=== PATIENT | male | born 1940 | race Caucasian/White ===

== ENCOUNTER → 2020-10-27 05:37 | Outpatient (CLI) | payer MEDICARE, SELFPAY ==
[2020-10-27 19:34] LABS: SARS-CoV-2 RNA PCR Negative
== END ==
PROVIDERS: PCP Family Medicine; Visit Provider Internal Medicine Critical Care Medicine
DX: R68.89 Other general symptoms and signs (principal); Z20.822 Contact with and (suspected) exposure to COVID-19
CPT/HCPCS: C9803; U0003; U0005

== ENCOUNTER 2020-10-30 07:10 | Outpatient (CLI) | payer MEDICARE, SELFPAY ==
--- NOTE | 2020-11-14 10:11 | WPDSLEEPSTUD ---
Sleep Study Date of Study: 10/30/20 Ordering Provider: Ed Jaramillo MD Interpreting Physician: Caty Hess MD Sleep Study Type: Split Polysomnogram Height: 1.68 m Weight: 90.718 kg Body Mass Index: 32.3 Neck Circumference (inches): 17 [place]: 3 Reason for Sleep Study Difficulty falling asleep and staying asleep Sleep History Melo Haider is a 80 year old man who was referred by Dr. Jaramillo for difficulty getting to sleep and staying asleep. He occasionally snores but he lives alone so no but he complains about it. He occasionally awakens at night with heartburn, belching or coughing. He rarely awakens from sleep feeling short of breath. He occasionally wakes up gasping for breath at night. He occasionally has breathing problems at night observed by others. He does not sweat excessively at night or notices his heart pounding or beating irregularly night. He occasionally falls asleep during the day, occasionally involuntarily, never while driving. He does not have loss of muscle tone was strong emotion. He does not have daytime difficulties due to excessive sleepiness. He does not feel paralyzed on waking or falling asleep. He frequently has vivid dreamlike scenes upon awakening or falling asleep. He does not feel afraid to go to sleep. He does not currently have nightmares. He did have some in the past. He rarely remembers his dreams. He frequently has racing thoughts. He rarely feels sad depressed or has anxiety. He does not have muscular tension. He occasionally notices parts of his body jerking. He does not comment on whether not he kicks at night. He rarely has crawling and aching feelings in his legs. He does not have any kind of leg pain at night. He does not have morning jaw pain. He does not grind his teeth during sleep. He occasionally is bothered by pain during the day. He frequently is awakened by pain at night. He wakes up feeling tired in the morning however does not have muscle stiffness, achy limbs or neck pain. He has dizziness, fatigue, sexual problems, memory problems, headaches and depression. Normal bedtime is 10:00 p.m. taking 4 hours to fall asleep with 3 trips to the bathroom. it may taking 15 minutes to 30 minutes to return to sleep. He wakes in the morning at 7:30 a.m.. He estimates getting 4-6 hours of sleep at night. His weekend schedule is the same. He does not take naps. Habits: Never smoked tobacco. Caffeine 3 cups per day. No alcohol or recreational drugs. [facility] Past Medical History Medical History (Updated 11/14/20 @ 13:44 by Caty Hess MD) Depression Hypercholesterolemia Hypertension PAC (premature atrial contraction) Medications Medications: atorvastatin 20 mg a day cholecalciferol 25 mcg 1000 units of vitamin-D 3 daily cyanocobalamin / vitamin B12 3000 mcg daily fish oil-[place] 3-vitamin-C -vitamin E 2000/650/12 mg/ 2.5 g emulsion in packet daily hydrochlorothiazide 25 mg daily losartan 100 mg daily meclizine 25 mg t.i.d. p.r.n. dizziness metoprolol 100 mg b.i.d. multivitamin 1 daily omeprazole 20 mg daily oxybutynin XL 5 mg daily tamsulosin 0.4 mg extended-release 30 minutes after a meal Sleep Procedure This test was performed using the Sonopia multiple channel system including EOG, EEG, submental EMG, EKG, nasal and oral airflow using thermistors and nasal pressure sensors, chest and abdominal belts for body position data, and pulse oximetry. Video monitoring was also performed. The study was scored using CMS guidelines. After the baseline portion the patient met criteria for a titration with an apnea-hypopnea index of 17.7. The patient used a mask, type was not specified, and a heated humidifier with initial pressure of 5 cm gradually increased to a pressure of 13 cm. At the highest setting, 13 cm, the patient spent 25 minutes in bed, 24 minutes in REM, had 1 hypopnea and an AHI of 2.4 with a minimum sat of 91% and a sleep efficie
[2020-11-14 13:45] VITALS: BMI 32.3
== END 2020-10-30 07:11 | disposition home or self-care (01) ==
LOC: ANHCSM 07:11
PROVIDERS: PCP Family Medicine; Visit Provider Internal Medicine Cardiovascular Disease
DX: G47.33 Obstructive sleep apnea (adult) (pediatric) (principal); G25.81 Restless legs syndrome
CPT/HCPCS: 95811

== ENCOUNTER 2022-10-28 08:40 | Outpatient (CLI) | payer MEDICARE, SELFPAY ==
--- NOTE | ~2022-10-28 | CT_ITS ---
EXAMINATION: CT abdomen pelvis wo/w con DATE: 10/28/2022 09:31 INDICATION: Gross hematuria TECHNIQUE: Computed tomography (CT) of the abdomen and pelvis was performed without intravenous contr ast. CT of the abdomen and pelvis was then performed with a total of 130 mL Omnipaque 350 intravenous contrast using a double-bolus technique for simultaneous opacification of the renal parenchyma and r enal collecting system. The dose-length product (DLP) was 1440.03 mGy-cm. Automated exposure control and iterative reconstruction technique were employed. COMPARISON: 02/27/2012 FINDINGS: There are chronic subpleural reticular and groundglass opacities in the visualized lung bas es with some areas of honeycombing. There is a moderate-sized sliding hiatal hernia. The heart size i s normal. Healed left-sided rib fractures are noted. Cysts of the liver measure up to 1.5 cm. Punctat e calcifications in an otherwise normal spleen likely represent healed granulomatous disease. The chaudhary creas, gallbladder, and adrenal glands are normal. No stones are identified in the kidneys, ureters, or bladder. No hydronephrosis or hydroureter. Cysts of the kidneys measure up to 5.2 cm on the left. No suspicious renal or urothelial lesion identified. There is moderate lumbar spondylosis. No patholo gically enlarged abdominal or pelvic lymph nodes are identified. There is calcified atherosclerosis o f the aorta and many of the other arteries. No free intraperitoneal gas or evidence of bowel obstruct ion. A retroaortic left renal vein is noted. There is a moderate volume of colonic stool. IMPRESSION: 1. No CT correlate for the patient's symptoms. 2. Chronic interstitial lung disease in the visualized lung bases pattern of usual interstitial pneum onia (UIP). Reviewed, dictated and finalized at location L. IMPRESSION: 1. No CT correlate for the patient's symptoms. 2. Chronic interstitial lung disease in the visualized lung bases pattern of us ual interstitial pneumonia (UIP).
--- NOTE | ~2022-10-28 | XR_ITS ---
EXAMINATION: XR abdomen/kub 1V INDICATION: Gross hematuria TECHNIQUE: Supine views of the abdomen were obtained on 2 radiographs. COMPARISON: None FINDINGS: The bowel gas pattern is normal. No urolithiasis is identified. There are phleboliths of th e pelvis. There is moderate osteoarthritis of the hips. IMPRESSION: 1. No urolithiasis identified. Reviewed, dictated and finalized at location L.
[2022-10-28 09:15] LABS: Estimated Glomerular Filt Rate > 60
== END 2022-10-28 08:41 | disposition home or self-care (01) ==
PROVIDERS: PCP Family Medicine; Visit Provider Urology
DX: R31.0 Gross hematuria (principal); J84.9 Interstitial pulmonary disease, unspecified
CPT/HCPCS: 74018; 74178; Q9967

== ENCOUNTER 2024-01-27 15:37 | Inpatient (IN) | payer MEDICARE, SELFPAY ==
--- NOTE | ~2024-01-27 | XR_ITS ---
EXAMINATION: XR surgery orthopedic DATE: 02/01/2024 17:51 INDICATION: Left ankle fracture. TECHNIQUE: 4 intraoperative fluoroscopic views of left ankle were obtained. I was not present. Fluoro scopy exposure time was 3 minutes 42 seconds COMPARISON: Left ankle radiographs 01/26/2024 FINDINGS: There is a fracture of posterior malleolus in near-anatomic alignment with internal fixatio n with plate and screws. There is normal alignment at the ankle mortise. There is fixation of the dis astrid tibia and fibula with screw and a tension band. IMPRESSION: 1. Fracture of posterior malleolus status post open reduction internal fixation. 2. Internal fixation of the tibiofibular syndesmosis. Reviewed, dictated and finalized at location E. IMPRESSION: 1. Fracture of posterior malleolus status post open reduction internal fixation . 2. Internal fixation of the tibiofibular syndesmosis.
--- NOTE | ~2024-01-27 | XR_ITS ---
XR chest 1V portable Ordering provider: Anel Jordan MD History: 83 years Male with . syncope . Comparison: June 13, 2012 FINDINGS: MEDIASTINUM: The cardiac silhouette is slightly enlarged. Postoperative changes in the mediastinum. S lightly congested anju. LUNGS: No effusion or pneumothorax. Bilateral interstitial changes. Minimal opacification in the left and the right lung bases more on the left. OTHER: No free air under the diaphragm. Degenerative changes of the spine. IMPRESSION: Bilateral basal pneumonia more on the left side. Underlying pulmonary edema is not excluded. Reviewed, dictated and finalized at location A.
--- NOTE | ~2024-01-27 | XR_ITS ---
EXAMINATION: XR chest 2V DATE: 01/31/2024 09:41 INDICATION: Lung infiltrates. TECHNIQUE: Frontal and lateral views of the chest were obtained. COMPARISON: Chest single view 01/27/2024, CT abdomen and pelvis 10/28/2022 FINDINGS: The lung volumes are normal. There is an interstitial pattern in the lungs with a lower javi g predominance. No pleural effusion or pneumothorax. The heart size is normal. Surgical clips overlie left posterior thorax. There is a large hiatal hernia. IMPRESSION: 1. Stable chronic interstitial lung disease. 2. Large hiatal hernia. Reviewed, dictated and finalized at location E.
--- NOTE | ~2024-01-27 | CT_ITS ---
CT brain wo con Ordering provider: Anel Jordan History: 83 years Male with . fall . Comparison: None. Technique: CT of the head without contrast. Radiation reduction technique utilized. DLP is 605.33 mGy. FINDINGS: BRAIN PARENCHYMA AND CSF SPACES: Mild leukoaraiosis and diffuse cortical atrophy. Mild atheromatous d isease. Tiny bilateral lacunar infarcts in the basal ganglia. No midline shift, mass effect or hemorr navneet. The brain parenchyma and CSF spaces are otherwise normal. VISUALIZED PARANASAL SINUSES: Well aerated. MASTOIDS: Well aerated. BONES: The bones appear intact. SOFT TISSUES: Visualized nasopharynx is normal. Superficial soft tissues are normal. IMPRESSION: No acute intracranial findings. Reviewed, dictated and finalized at location A.
[2024-01-27 15:38] VITALS: BP 129/63; PULSE 76; RESP 16; TEMP 36.6; O2SAT 98
--- NOTE | 2024-01-27 16:40 | ED.GENADULT ---
HPI - General Adult General Chief complaint: Recheck/Abnormal Lab/Rx <Abigail Dunn November, INSTRUCTOR DECORATING - Last Filed: 01/27/24 19:46> Stated complaint: bola asking for admit <Abigail Dunn November, INSTRUCTOR DECORATING - Last Filed: 01/27/24 19:46> Time Seen by Provider: 01/27/24 16:40 <Abigail Dunn November, INSTRUCTOR DECORATING - Last Filed: 01/27/24 19:46> Focused HPI: Melo Haider is an 83 y/o male who presents with his son. Son states that pt had a fall yesterday and broke his left ankle and left femur he was seen at [facility] and was d/c home with splint/crutches and ortho follow up. He followed up with Orthopedic surgeon Dr. Wong here and they were told that his left ankle is very unstable and he cannot be on crutches he needs to be completely non weight bearing if he puts weight on it he will run the little ligaments he has left. Dr. Wong sen them here so he can be admitted to get rehab placement pending surgery and then after surgery go back to rehab Patient lives alone and has stairs he has to get up and down and is unable to safely mobilize with this injury. Dr. Wong does not need any more imaging he has had Xr and CT. GENERAL: Well-appearing, well-nourished, and in no acute distress. HEAD: Normocephalic, atraumatic. CHEST: Clear to auscultation. ?No respiratory distress. HEART: Regular rate and rhythm.? NEURO: ?Alert and oriented x3. Patient screened in triage and initial orders placed.? ?Additional care and disposition to be based upon?diagnostic testing and treatment. <Abigail Dunn November, INSTRUCTOR DECORATING - Last Filed: 01/27/24 19:46> Related Data Home medications: Home Medications Medication Instructions Recorded Confirmed fish mai--bzh C-vit E 2,000 g PO DAILY 10/30/22 01/27/24 mg-650 mg-12 mg/2.5 g emulsion packt coenzyme Q10 10 mg capsule (Co 10 mg PO ONCE 12/01/23 01/27/24 Q-10) multivitamin 1 tablet PO DAILY 01/27/24 01/27/24 oxybutynin chloride 10 mg 0.5 mg PO 01/27/24 tablet,extended release 24 hr tamsulosin 0.4 mg capsule 0.4 mg PO 01/27/24 tamsulosin 0.4 mg capsule 0.4 mg PO DAILY 01/27/24 01/27/24 <Abigail Dodd, INSTRUCTOR DECORATING - Last Filed: 01/27/24 19:46> Allergies/adverse reactions: Allergies Allergy/AdvReac Type Severity Reaction Status Date / Time No Known Allergies Allergy Verified 01/27/24 13:17 <Abigail Dodd, INSTRUCTOR DECORATING - Last Filed: 01/27/24 19:46> Review of Systems Review of Systems: All systems are reviewed and are negative unless stated otherwise in the HPI. <Anel Jordan MD - Last Filed: 01/27/24 18:32> PMFSH Past Medical History Medical History: Medical History Atherosclerosis of aorta Benign prostatic hyperplasia with lower urinary tract symptoms Decreased urine stream Gastro-esophageal reflux disease without esophagitis Hypercholesterolemia Hypertension Major depressive disorder, recurrent, in partial remission PAC (premature atrial contraction) Personal history of colonic polyps Personal history of malignant neoplasm of bladder <Abigail Dodd, INSTRUCTOR DECORATING - Last Filed: 01/27/24 19:46> Surgical History Surgical History: Surgical History History of back surgery History of hernia repair <Abigail Dodd, INSTRUCTOR DECORATING - Last Filed: 01/27/24 19:46> Social History Social History: Social History Smoking status: Never smoker Smokeless tobacco user: chewing tobacco Second hand tobacco smoke exposure: No Alcohol intake: former Substance use: never Substance use type: does not use Do You Feel Safe in your Home?: Yes Lack of Transportation: No Lack of Food: Never True Current Housing: I Have Housing Concerned About Future Housing: No Difficulty Paying Gas/Electric Bills: No Difficulty Paying for Meds: No Currently Unemployed: No Education: High School Diploma/GED Difficulty w/ Childcare or Fami
--- NOTE | 2024-01-27 17:42 | ECG_ITS ---
Test Date: 2024-01-27 18:27:26 Measurements Intervals [place] Rate: 65 P: 23 NE: 191 QRS: -20 QRSD: 104 T: 2 QT: 398 QTc: 415 Interpretive Statements SINUS RHYTHM VOLTAGE CRITERIA FOR LVH BORDERLINE T WAVE ABNORMALITY- INFERIOR LEADS BASELINE ARTIFACT- I, II, III, AVR, AVL, AVF, V1-V6 BORDERLINE ECG No previous ECG available for comparison Electronically Signed On 01-27-2024 20:02:27 CDT by Bob Serrato D.O.
[2024-01-27 17:54] VITALS: BP 145/69; PULSE 79; RESP 18; O2SAT 100
[2024-01-27 17:55] LABS: Basophils Absolute Auto 0.1 K/mm3 (0.0-0.1); Basophils Percent Auto 0.4 % (0.2-1.2); Eosinophils Absolute Auto 0.1 K/mm3 (0-0.3); Hematocrit 42.5 % (42.0-52.0); Hemoglobin 14.9 g/dL (14.0-18.0); Immature Granulocyte Absolute 0.06 K/mm3 (0.00-0.031); Immature Granulocyte Percent A 0.4 % (0-0.5); Lymphocytes Absolute Auto 2.05 K/mm3 (0.9-3.2); Lymphocytes Percent Auto 15.3 % (18.3-44.2); Mean Corpuscular HGB Conc 35.1 g/dl (32-36); Mean Corpuscular Hemoglobin 32.4 pg (26-34); Mean Corpuscular Volume 92.4 fl (80-100); Mean Platelet Volume 10.7 fl (7.4-10.4); Monocytes Absolute Auto 1.3 K/mm3 (0.1-0.6); Monocytes Percent Auto 9.8 % (2.6-8.5); Neutrophils Absolute Auto 9.8 K/mm3 (1.3-6.7); Neutrophils Percent Auto 73.1 % (45.5-73.1); Platelet Count Result 189 k/mm3 (150-375); Red Cell Distribution Width 13.8 % (11.5-14.5); White Blood Count 13.4 K/mm3 (4.5-10.0)
[2024-01-27 18:06] LABS: Prothrombin Time 13.8 Seconds (11.1-14.7)
[2024-01-27 18:07] LABS: Partial Thromboplastin Time 30.1 Seconds (22.3-36.8)
[2024-01-27 18:09] LABS: Alanine Aminotransferase 21 U/L (6-50); Albumin Level 4.4 g/dL (3.5-5.1); Alkaline Phosphatase 72 U/L (38-126); Anion Gap 8 mmol/L (4-12); Aspartate Amino Transferase 26 U/L (17-59); Bilirubin,Total 1.5 mg/dL (0.2-1.3); Blood Urea Nitrogen 21 mg/dL (9-20); Calcium 9.8 mg/dL (8.4-10.2); Carbon Dioxide 29 mmol/L (22-30); Chloride 103 mmol/L (98-107); Estimated CRCL calculation 65 ml/min; Estimated Glomerular Filt Rate > 60; Glucose 101 mg/dL (65-110); Potassium 3.4 mmol/L (3.4-5.0); Sodium 140 mmol/L (137-145)
--- NOTE | 2024-01-27 19:18 | PC.NURSE ---
Assumed care of pt from DIANE Grijalva at this time. Phlebotomy to come draw second set of cultures.
[2024-01-27 20:24] VITALS: BP 155/74; PULSE 79; RESP 16; O2SAT 97
--- NOTE | 2024-01-27 21:22 | ADMGEN ---
This patient, Melo Haider, was admitted to 3 [facility] Surg Room 322-02. Patient/family oriented to hospital policies and general routines including ID bracelet, bed and alarms, visiting hours, pain management, procedures, bathroom and other care routines, personal items, smoking policy, room service/diet, and visiting hours. Information on how to activate the Rapid Response Team has been discussed. Patient/Family are encouraged to report perceived risks to care and to ask questions if they do not understand what they are told or what they should do.
[2024-01-27 21:51] VITALS: BP 139/58; PULSE 84; RESP 18; TEMP 36.6; O2SAT 98; BMI 29.1
[2024-01-27] MEDS: AZITHROMYCIN 500 MG/NS 250 ML 500 MG/250 ML BAG 250 MG IVPB (21:53)
--- NOTE | 2024-01-27 23:17 | PC.NURSE ---
This RN completed the admission. Family was at bedside at admission and requested Care Coordination to call keli Lopez or Donal for placement. They would like to be called with significant updates as well.
[2024-01-28 05:59] VITALS: BP 141/63; PULSE 77; RESP 18; TEMP 36.3; O2SAT 95
[2024-01-28] MEDS: AZITHROMYCIN 250 MG TABLET PO (08:55)
--- NOTE | 2024-01-28 10:03 | PM.IMHP ---
H&P: HPI History of Present Illness Date/Time: 01/28/24 10:03 Chief Complaint: fall Narrative: 83 y.o male with PMH/o BPH,malignant neoplast of bladder, depression, HTN, HLD, gerd admitted from ED for fall yesterday and lt ankle pain/lt femur- he was seen in [place] ER and sent home with splint/crutches and ortho f/u. He was seen per DR Wong- pt ankle needed surgical repair-so he was sent to ED . xray, ekg and lab work is completed in ed. There was concern for pneumonia on imaging- so pt was started on IV Rocephin and azithromycin after blood cultures were obtained. Pt is currently NPO until we know the plan and ortho sees him. he is alert, plesant, reports pain is very tolerable. [facility] Past Medical History Medical History Atherosclerosis of aorta Benign prostatic hyperplasia with lower urinary tract symptoms Decreased urine stream Gastro-esophageal reflux disease without esophagitis Hypercholesterolemia Hypertension Major depressive disorder, recurrent, in partial remission PAC (premature atrial contraction) Personal history of colonic polyps Personal history of malignant neoplasm of bladder Surgical History Surgical History History of back surgery History of hernia repair Family History Family History Mother Colon cancer Sibling Lung cancer Social History Social History Smoking status: Never smoker Smokeless tobacco user: chewing tobacco Second hand tobacco smoke exposure: No Alcohol intake: never Substance use: never Substance use type: does not use Do You Feel Safe in your Home?: Yes Lack of Transportation: No Lack of Food: Never True Current Housing: I Have Housing Concerned About Future Housing: No Difficulty Paying Gas/Electric Bills: No Difficulty Paying for Meds: No Currently Unemployed: No Education: High School Diploma/GED Difficulty w/ Childcare or Family Care: No Living arrangements: with family Occupation/Education: retired Gender identity (if verbalized by the patient): Male Sexual Orientation (if Verbalized by the Patient): Straight or Heterosexual Spiritual care concerns: No Meds Home Medications and Allergies Home Medications Medication Instructions Recorded Confirmed Type fish gfe--cnz C-vit E 2,000 1 g PO DAILY 10/30/22 01/27/24 History mg-650 mg-12 mg/2.5 g emulsion packt losartan 100 mg tablet 100 mg PO DAILY #90 tabs 10/08/23 01/27/24 Rx omeprazole 20 mg capsule,delayed 20 mg PO DAILY #90 caps 10/08/23 01/27/24 Rx release amlodipine 5 mg tablet 5 mg PO DAILY #90 tabs 10/29/23 01/27/24 Rx coenzyme Q10 10 mg capsule (Co 100 mg PO ONCE 12/01/23 01/27/24 History Q-10) hydrochlorothiazide 25 mg tablet 25 mg PO DAILY #90 tabs 12/01/23 01/27/24 Rx triamcinolone acetonide 0.1 % 1 applic topical BID #80 grams 12/30/23 01/27/24 Rx topical cream metoprolol succinate 100 mg 100 mg PO BID #90 tabs 01/12/24 01/27/24 Rx tablet,extended release 24 hr Prilosec OTC 20 mg PO DAILY 01/27/24 01/27/24 History atorvastatin 20 mg tablet 20 mg PO DAILY 01/27/24 01/27/24 History multivitamin 1 tablet PO DAILY 01/27/24 01/27/24 History oxybutynin chloride 10 mg 0.5 mg PO DAILY 01/27/24 01/27/24 History tablet,extended release 24 hr oxybutynin chloride 5 mg 10 mg PO DAILY 01/27/24 01/27/24 History tablet,extended release 24 hr tamsulosin 0.4 mg capsule 0.4 mg PO DIRECTED 01/27/24 01/27/24 History Allergies Allergy/AdvReac Type Severity Reaction Status Date / Time aspirin AdvReac Intermediate Headache Verified 01/28/24 12:49 Vital Signs Vital Signs - 24 hr 01/27/24 15:38 01/27/24 17:54 01/27/24 20:24 Temperature 97.9 F Pulse Rate 76 79 79 Respiratory Rate 16 18 16 Blood Pressure 129
[2024-01-28] MEDS: SODIUM CHLORIDE 0.9% IV 1,000 ML 150 ML IV CONT (11:17)
[2024-01-28 11:18] VITALS: PULSE 84
[2024-01-28] MEDS: LOSARTAN POTASSIUM 100 MG TABLET PO (11:18)
[2024-01-28] MEDS: MULTIVITAMINS THERAPEUTIC TAB (*BKC) 1 TABLET PO (11:18)
[2024-01-28] MEDS: METOPROLOL SUCCINATE EXT REL 100 MG TABCR PO ×2 (11:18→20:29)
[2024-01-28] MEDS: amLODIPine BESYLATE 5 MG TABLET PO (11:19)
[2024-01-28] MEDS: PANTOPRAZOLE 40 MG TABLET PO (11:19)
[2024-01-28] MEDS: TAMSULOSIN HCL 0.4 MG CAPSULE PO (11:19)
[2024-01-28] MEDS: ATORVASTATIN 20 MG TABLET PO (11:19)
[2024-01-28] MEDS: hydroCHLOROthiazide 25 MG TABLET PO (11:19)
[2024-01-28] MEDS: oxyBUTYnin CHLORIDE XL 5 MG TAB.ER.24 10 MG PO (11:19)
--- NOTE | 2024-01-28 13:11 | PM.PNORT ---
Progress Note: A&P Assessment and Plan (1) Fracture of posterior malleolus of left tibia: Qualifiers: Encounter type: subsequent encounter Fracture type: closed Fracture healing: with routine healing Qualified Code(s): S82.392D - Other fracture of lower end of left tibia, subsequent encounter for closed fracture with routine healing Code(s): S82.392A - Other fracture of lower end of left tibia, initial encounter for closed fracture Status: Acute Assessment and Plan: Patient is a 83-year-old gentleman is a patient of Dr. Mendez who I saw in the office yesterday. The day before the fell sustaining a severely displaced diastasis of the left ankle syndesmosis, [place] pattern. There is a displaced long oblique proximal fibular shaft fracture. Posterior malleolus fracture with some intercalary comminution surface of the posterior aspect of the tibial plafond adjacent to the fracture site. There is an avulsion fracture off Chaput's tubercle and several flake avulsion fractures off the medial malleolus.. He was in [place] and simply got out of his car locked approximately 10 steps and suddenly found himself on the ground left leg and foot underneath him. He feels that is right leg slipped or gave way. He did not know exactly why he fell. He was discharged from the [place] ER to home where he was unable to maintain nonweightbearing on the splinted left foot and ankle. Sense is unclear whether or not he had a syncopal episode, I referred him directly to the emergency room yesterday and he underwent evaluation which bibasilar infiltrates consistent with pneumonia and he has been started on broad-spectrum IV antibiotics. On exam today he has intact sensation in the left foot. He has a long-leg splint in place to control rotation and he is comfortable in the splint. He is alert and oriented. Yesterday in the office he had moderate swelling in the lower calf and ankle on the left. I am going to try to schedule surgical repair which will include open reduction station of the posterior malleolus possibly the Chaputs tubercle if it is not too comminuted and fixation of the syndesmosis with 4.5 mm screw which will have to be removed after healing of small fibular shaft as well as a syndesmotic tight rope she in place for syndesmotic ligament reinforcement. I have explained the risks of surgery to him. In detail. We are going to tentatively try to schedule the surgery for to February 01. In the meantime, since he is going to be fairly in mobile, I am going to place him on Lovenox 40 mg daily for DVT axis. Prophylaxis.. He also related to me a history of adverse reaction to aspirin which includes baby aspirin which has caused him severe headaches last therefore we will not use aspirin for DVT prophylaxis in this gentleman. While he is here we will ask physical therapy to work with him and practice transfers bed to chair nonweightbearing left leg and possibly he will be come strong enough to hop a few steps with a walker nonweightbearing on the left leg. I will ask that we limit his time in the chair to 30 minutes at a time to minimize swelling in the left ankle. (2) Acute disruption of syndesmosis of ankle joint: Code(s): S93.439A - Sprain of tibiofibular ligament of unspecified ankle, initial encounter Status: Acute Subjective Subjective Date/Time Seen: 01/28/24 13:11 Objective Data Vital Signs Vital Signs: Vital Signs - 24 hr 01/27/24 15:38 01/27/24 17:54 01/27/24 20:24 Temperature 36.6 C Pulse Rate 76 79 79 Respiratory Rate 16 18 16 Blood Pressure 129/63 145/69 H 155/74 H Pulse Oximetry 98 100 97 Oxygen Delivery 01/27/24 21:51 01/27/24 22:33 01/28/24 05:59 Temperature 36.6 C 36.3 C L Pulse Rate 84 77 Respiratory Rate 18 18 Blood Pressure 139/58 L 141/63 H Pulse Oximetry 98 95 Oxygen Delivery Room Air 01/28/24 11:18 Temperature Pulse Rate 84 Respiratory Rate Blood
[2024-01-28 13:56] VITALS: O2SAT 94
[2024-01-28 14:00] VITALS: BP 141/66; PULSE 72; RESP 18; TEMP 36.8; O2SAT 94
[2024-01-28] MEDS: ENOXAPARIN 40 MG/0.4 ML SYRINGE SUB-Q (17:39)
[2024-01-28 20:29] VITALS: PULSE 75
[2024-01-28 22:00] VITALS: BP 130/60; PULSE 73; RESP 20; TEMP 37.1; O2SAT 96
[2024-01-29 06:00] VITALS: BP 114/59; PULSE 72; RESP 18; TEMP 37; O2SAT 91
[2024-01-29 06:36] LABS: Basophils Absolute Auto 0.1 K/mm3 (0.0-0.1); Basophils Percent Auto 0.7 % (0.2-1.2); Eosinophils Absolute Auto 0.3 K/mm3 (0-0.3); Eosinophils Percent Auto 2.5 % (0-4.4); Hematocrit 41.6 % (42.0-52.0); Hemoglobin 13.8 g/dL (14.0-18.0); Immature Granulocyte Absolute 0.05 K/mm3 (0.00-0.031); Immature Granulocyte Percent A 0.5 % (0-0.5); Lymphocytes Percent Auto 21.5 % (18.3-44.2); Mean Corpuscular HGB Conc 33.2 g/dl (32-36); Mean Corpuscular Hemoglobin 31.2 pg (26-34); Mean Corpuscular Volume 93.9 fl (80-100); Mean Platelet Volume 11.1 fl (7.4-10.4); Monocytes Percent Auto 10.2 % (2.6-8.5); Neutrophils Absolute Auto 6.6 K/mm3 (1.3-6.7); Neutrophils Percent Auto 64.6 % (45.5-73.1); Platelet Count Result 177 k/mm3 (150-375); Red Blood Count 4.43 M/mm3 (4.6-6.20); Red Cell Distribution Width 13.2 % (11.5-14.5); White Blood Count 10.2 K/mm3 (4.5-10.0)
[2024-01-29 06:49] LABS: Anion Gap 6 mmol/L (4-12); Blood Urea Nitrogen 19 mg/dL (9-20); Calcium 9.3 mg/dL (8.4-10.2); Carbon Dioxide 27 mmol/L (22-30); Chloride 108 mmol/L (98-107); Estimated CRCL calculation 58 ml/min; Estimated Glomerular Filt Rate > 60; Glucose 102 mg/dL (65-110); Magnesium 2.1 mg/dL (1.6-2.3); Potassium 3.2 mmol/L (3.4-5.0); Sodium 141 mmol/L (137-145)
[2024-01-29 07:07] LABS: Procalcitonin 0.1 ng/mL
--- NOTE | 2024-01-29 07:38 | PM.PNORT ---
Progress Note: A&P Assessment and Plan (1) Fracture of shaft of left fibula: Qualifiers: Encounter type: subsequent encounter Fracture type: closed Fracture morphology: comminuted Fracture alignment: displaced Fracture healing: with routine healing Qualified Code(s): S82.452D - Displaced comminuted fracture of shaft of left fibula, subsequent encounter for closed fracture with routine healing Code(s): S82.402A - Unspecified fracture of shaft of left fibula, initial encounter for closed fracture Status: Acute Assessment and Plan: After discussion with the operating room, they have a time available for Thursday and we will plan on surgery to repair the fractures and syndesmosis left ankle at that time if he is medically stable and optimized and if the swelling is reduced. I would like to have Cardiology see him for evaluation for cardiac risk assessment in this 83-year-old gentleman who has had significant reduction in his physical capacity over the last couple of years as the stress of anesthesia superimposed on his body fighting pneumonia will be significant. Also if it is felt that delay of surgery for several more days would be beneficial to reduce his medical risk associated with surgery, we can modify our plan for scheduling the surgery accordingly. (2) Acute disruption of syndesmosis of ankle joint: Code(s): S93.439A - Sprain of tibiofibular ligament of unspecified ankle, initial encounter Status: Acute (3) Fracture of posterior malleolus of left tibia: Qualifiers: Encounter type: subsequent encounter Fracture type: closed Fracture healing: with routine healing Qualified Code(s): S82.392D - Other fracture of lower end of left tibia, subsequent encounter for closed fracture with routine healing Code(s): S82.392A - Other fracture of lower end of left tibia, initial encounter for closed fracture Status: Acute Subjective Subjective Date/Time Seen: 01/29/24 07:38 Objective Data Vital Signs Vital Signs: Vital Signs - 24 hr 01/28/24 11:18 01/28/24 08:00 01/28/24 13:56 Temperature Pulse Rate 84 Respiratory Rate Blood Pressure Pulse Oximetry 94 Oxygen Delivery Room Air Room Air 01/28/24 14:00 01/28/24 20:29 01/28/24 20:00 Temperature 36.8 C Pulse Rate 72 75 Respiratory Rate 18 Blood Pressure 141/66 H Pulse Oximetry 94 Oxygen Delivery Room Air 01/28/24 22:00 01/29/24 06:00 Temperature 37.1 C 37.0 C Pulse Rate 73 72 Respiratory Rate 20 18 Blood Pressure 130/60 114/59 L Pulse Oximetry 96 91 Oxygen Delivery Intake/Output Intake/Output: Intake & Output 01/26/24 01/27/24 01/28/24 01/29/24 23:59 23:59 23:59 23:59 Intake Total 300 770 500 Output Total 350 850 650 Balance -50 -80 -150 Meds/Results Medications: Active Medications Generic Name Dose Route Start Last Admin Trade Name Amanda PRN Reason Stop Dose Admin Amlodipine Besylate 5 mg 01/28/24 09:00 01/28/24 11:19 Amlodipine Besylate 5 Mg Tablet PO 5 mg DAILY YOBANY Administration Atorvastatin Calcium 20 mg 01/28/24 09:00 01/28/24 11:19 Atorvastatin 20 Mg Tablet PO 20 mg DAILY YOBANY Administration Azithromycin 250 mg 01/28/24 09:00 01/28/24 08:55 Azithromycin 250 Mg Tablet PO 01/31/24 09:01 250 mg DAILY YOBANY Administration Enoxaparin Sodium 40 mg 01/28/24 13:00 01/28/24 17:39 Enoxaparin 40 Mg/0.4 Ml Syringe SUB-Q 40 mg DAILY YOBANY Administration Hydrochlorothiazide 25 mg 01/28/24 09:00 01/28/24 11:19 Hydrochlorothiazide 25 Mg Tablet PO 25 mg DAILY YOBANY Administration Ceftriaxone Sodium 1 gm in 50 mls @ 100 mls/hr 01/28/24 21:00 01/28/24 20:55 Rocephin 1 Gm/Ns 50 Ml IVPB Infused Q24H YOBANY Infusion Losartan Potassium 100 mg 01/28/24 09:00 01/28/24 11:18 Losartan Potassium 100 Mg Tablet PO 100 mg DAILY YOBANY Administration Metoprolol Succinate 100 mg 01/28/24
[2024-01-29] MEDS: METOPROLOL SUCCINATE EXT REL 100 MG TABCR PO (07:48)
[2024-01-29] MEDS: ENOXAPARIN 40 MG/0.4 ML SYRINGE SUB-Q (07:48)
[2024-01-29] MEDS: hydroCHLOROthiazide 25 MG TABLET PO (07:48)
[2024-01-29] MEDS: LOSARTAN POTASSIUM 100 MG TABLET PO (07:48)
[2024-01-29] MEDS: ATORVASTATIN 20 MG TABLET PO (07:48)
[2024-01-29] MEDS: amLODIPine BESYLATE 5 MG TABLET PO (07:48)
[2024-01-29] MEDS: AZITHROMYCIN 250 MG TABLET PO (07:48)
[2024-01-29] MEDS: PANTOPRAZOLE 40 MG TABLET PO (07:48)
[2024-01-29] MEDS: MULTIVITAMINS THERAPEUTIC TAB (*BKC) 1 TABLET PO (07:49)
[2024-01-29] MEDS: oxyBUTYnin CHLORIDE XL 5 MG TAB.ER.24 10 MG PO (07:49)
--- NOTE | 2024-01-29 08:41 | PM.IMPN ---
Progress Note: A&P Assessment and Plan (1) Ankle fracture, left: Code(s): S82.892A - Other fracture of left lower leg, initial encounter for closed fracture Status: Acute Assessment and Plan: - ortho consult - pain control prn- non weight bearing - surgery on thursday- was seen per cardiology and no interventions are needed from cardiology standpoint - lovenox for DVT prophylaxis - work with PT/OT (2) Bilateral pneumonia: Code(s): J18.9 - Pneumonia, unspecified organism Status: Acute Assessment and Plan: - iv rocephin/zithromax - IS -monitor (3) Gastro-esophageal reflux disease without esophagitis: Code(s): K21.9 - Gastro-esophageal reflux disease without esophagitis Status: Acute Assessment and Plan: -will continue home med (4) Hypercholesterolemia: Code(s): E78.00 - Pure hypercholesterolemia, unspecified Status: Acute Assessment and Plan: continue home med (5) Hypertension: Qualifiers: Hypertension type: primary hypertension Qualified Code(s): I10 - Essential (primary) hypertension Code(s): I10 - Essential (primary) hypertension Status: Acute Assessment and Plan: will continue home meds and monitor bp - will decrease metoprol)no h/o RI, CHF, afib, palpitation) and hctz and monitor (6) Obstructive sleep apnea: Code(s): G47.33 - Obstructive sleep apnea (adult) (pediatric) Status: Acute Assessment and Plan: continue cpap (7) Hypokalemia: Code(s): E87.6 - Hypokalemia Status: Acute Assessment and Plan: - will decrease hctz and add k supplements - monitor Plan lovenox per ortho Time Spent With Patient Time with patient: 25 - 35 minutes Subjective Date/time seen: 01/29/24 08:41 Interval history: Narrative: 83 y.o male with PMH/o BPH,malignant neoplast of bladder, depression, HTN, HLD, gerd admitted from ED for fall yesterday and lt ankle pain/lt femur- he was seen in [place] ER and sent home with splint/crutches and ortho f/u. He was seen per DR Wong- pt ankle needed surgical repair-so he was sent to ED . xray, ekg and lab work is completed in ed. There was concern for pneumonia on imaging- so pt was started on IV Rocephin and azithromycin after blood cultures were obtained. Pt is currently NPO until we know the plan and ortho sees him. he is alert, pleasant, reports pain is very tolerable. 01/28- noted that pt is on 4 agents for bp- amlodipine, metoprolol, losartan and hctz. will decrease doses for hctz and Metoprol. may need to de escalate some meds as bp is well controlled. He reports no known cardiac events- no MIs, no CHF. ortho saw him and plan for possible surgery on thursday- will need cardiac consult for cardiac risk assessment -consult was placed per DR Subramanian. Review of Systems Constitutional: Constitutional: Denies chills Eyes: Eyes: Denies photophobia Cardiovascular: Cardiovascular: Denies chest pain Respiratory: Respiratory: Denies chest congestion and Denies cough Gastrointestinal: Gastrointestinal: Denies abdominal pain and Denies melena Genitourinary: Genitourinary: Denies hematuria and Denies dysuria Musculoskeletal: Comments: left leg pain- controlled Exam Const: General: comfortable Resp: Effort & Inspection: normal respiratory effort Cardio: Rate: regular rate Rhythm: regular rhythm Skin: General skin exam: normal color Other: skin is warm to lle Neuro: Other: sensation intact to lle Psych: Affect: normal affect Objective Data Vital Signs Vital Signs: Vital Signs - 24 hr 01/28/24 11:18 01/28/24 13:56 01/28/24 14:00 Temperature 98.2 F Pulse Rate 84 72 Respiratory Rate 18 Blood Pressure 141/66 H Pulse Oximetry 94 94 Oxygen Delivery Room Air 01/28/24 20:29 01/28/24 20:00 01/28/24 22:00 Temperature 98.7 F Pulse Rate 75 73 Respiratory Rate 20 Blood Pressure 130/60 Pu
--- NOTE | 2024-01-29 10:22 | PM.CNCAR ---
Assessment and Plan Assessment and plan (1) Fracture of shaft of left fibula: Qualifiers: Encounter type: subsequent encounter Fracture type: closed Fracture morphology: comminuted Fracture alignment: displaced Fracture healing: with routine healing Qualified Code(s): S82.452D - Displaced comminuted fracture of shaft of left fibula, subsequent encounter for closed fracture with routine healing Code(s): S82.402A - Unspecified fracture of shaft of left fibula, initial encounter for closed fracture Status: Acute Plan This is an 83-year-old man who reports a history of a brief hospitalization for treatment of an arrhythmia approximately 20 years ago but no significant cardiovascular history since then. He enters the hospital after sustaining a complicated fracture of the left ankle following a mechanical fall at home. The avascular risk for surgical treatment of this is low and he does not require any additional or preoperative cardiac evaluation in my opinion. His cardiac history is significant for a tachyarrhythmia that was treated couple of decades ago but he has not had any clinically significant cardiac events in a long time. Will follow him with you during this hospitalization but at this point he should be considered cleared/stable for this operation Smooth Dykes MD [facility] History of Present Illness History of Present Illness Consult date/time: 01/29/24 10:22 Reason For Visit: Ankle Fracture Narrative: This is an 83-year-old man seen request of the hospitalists/orthopedic surgeon to assess cardiac risk prior to noncardiac surgery. This is a nice man who had a fall couple of days ago it he had a mechanical fall he did not have a syncopal event. The NC room elsewhere and chest x-ray demonstrated fracture of the tibial talar articulation in his left foot and he was seen by Orthopedic surgery and admitted because she going to be necessary. From what I see in the chart surgery is scheduled to happen on Thursday02/01/2024. He is at bedrest with the for the elevated on a pillow he does not have any cardiovascular complaints. He reports that he has a history of some sort of cardiac arrhythmia for which he underwent treatment in the emergency room and in the hospital approximately 20 years ago. I do not have records of that it sounds like he he either had supraventricular tachycardia or an episode of AFib by his description but once again we do not have any specific records of that. He does follow-up with my partner, Dr. Jaramillo in the office for complaints he/observation of extrasystoles/palpitations. His says not demonstrated any significant arrhythmias. He does not have any history of coronary or felt sees. He has never been hospitalized with congestive heart failure or any other problem since would of her arrhythmia the history to couple of decades ago. His 12 lead electrocardiogram shows sinus rhythm and is essentially a normal tracing. In this setting I am seeing him in consultation. He lives at home alone he is retired for many years and is normal activities of daily living without any exertion. He does not exercise in any structured fashion. Review of Systems Constitutional: Constitutional: Reports no additional constitutional complaints Eyes: Eyes: Reports no additional eye complaints ENT: Reports system reviewed and no additional complaints, except as documented Cardiovascular: Cardiovascular: Reports no additional cardiovascular complaints Respiratory: Respiratory: Reports no additional respiratory complaints Gastrointestinal: Gastrointestinal: Reports no additional gastrointestinal complaints Musculoskeletal: Musculoskeletal: Reports as per HPI Integumentary/Breasts: Skin/Breast: Reports system reviewed and no additional complaints, except as docu Neurologic: Reports system reviewed and no additional complaints, except as documented Endocrine: Endocrine: Reports no additional endocrine
[2024-01-29] MEDS: POTASSIUM CHLORIDE 20 MEQ PACKET (FOR LIQUID) PO (10:41)
--- NOTE | 2024-01-29 13:36 | PM.PNORT ---
Progress Note: A&P Assessment and Plan (1) Fracture of shaft of left fibula: Qualifiers: Encounter type: subsequent encounter Fracture type: closed Fracture morphology: comminuted Fracture alignment: displaced Fracture healing: with routine healing Qualified Code(s): S82.452D - Displaced comminuted fracture of shaft of left fibula, subsequent encounter for closed fracture with routine healing Code(s): S82.402A - Unspecified fracture of shaft of left fibula, initial encounter for closed fracture Status: Acute Assessment and Plan: Plan is to proceed with open reduction internal fixation posterior malleolus left ankle and syndesmosis repair Thursday on January 31 as long as he is medically respect to his pneumonia and as long as the swelling a little bit better. Dr. Ortiz the motorized squad commanding officer saw him this morning and felt that no further cardiac evaluation was necessary and that he should a cardiac standpoint with ankle surgery. Patient comfortable today. He has been sitting in the chair. He has been able to transfer bed to chair maintaining nonweightbearing status according to the therapist who I spoke to today. I reiterated to him that he must avoid sitting at in the chair within 30 minutes at a time and has been up for much longer than. (2) Acute disruption of syndesmosis of ankle joint: Code(s): S93.439A - Sprain of tibiofibular ligament of unspecified ankle, initial encounter Status: Acute (3) Fracture of posterior malleolus of left tibia: Qualifiers: Encounter type: subsequent encounter Fracture type: closed Fracture healing: with routine healing Qualified Code(s): S82.392D - Other fracture of lower end of left tibia, subsequent encounter for closed fracture with routine healing Code(s): S82.392A - Other fracture of lower end of left tibia, initial encounter for closed fracture Status: Acute Subjective Subjective Date/Time Seen: 01/29/24 13:36 Objective Data Vital Signs Vital Signs: Vital Signs - 24 hr 01/28/24 13:56 01/28/24 14:00 01/28/24 20:29 Temperature 36.8 C Pulse Rate 72 75 Respiratory Rate 18 Blood Pressure 141/66 H Pulse Oximetry 94 94 Oxygen Delivery Room Air 01/28/24 20:00 01/28/24 22:00 01/29/24 06:00 Temperature 37.1 C 37.0 C Pulse Rate 73 72 Respiratory Rate 20 18 Blood Pressure 130/60 114/59 L Pulse Oximetry 96 91 Oxygen Delivery Room Air 01/29/24 08:00 01/29/24 11:22 Temperature Pulse Rate Respiratory Rate Blood Pressure Pulse Oximetry Oxygen Delivery Room Air Room Air Intake/Output Intake/Output: Intake & Output 01/26/24 01/27/24 01/28/24 01/29/24 23:59 23:59 23:59 23:59 Intake Total 356 361 9746 Output Total 336 909 4596 Balance -50 -80 280 Meds/Results Medications: Active Medications Generic Name Dose Route Start Last Admin Trade Name Freq PRN Reason Stop Dose Admin Amlodipine Besylate 5 mg 01/28/24 09:00 01/29/24 07:48 Amlodipine Besylate 5 Mg Tablet PO 5 mg DAILY YOBANY Administration Atorvastatin Calcium 20 mg 01/28/24 09:00 01/29/24 07:48 Atorvastatin 20 Mg Tablet PO 20 mg DAILY YOBANY Administration Azithromycin 250 mg 01/28/24 09:00 01/29/24 07:48 Azithromycin 250 Mg Tablet PO 01/31/24 09:01 250 mg DAILY YOBANY Administration Enoxaparin Sodium 40 mg 01/28/24 13:00 01/29/24 07:48 Enoxaparin 40 Mg/0.4 Ml Syringe SUB-Q 40 mg DAILY YOBANY Administration Hydrochlorothiazide 12.5 mg 01/29/24 09:00 01/29/24 09:04 Hydrochlorothiazide 6.25 Mg Tablet PO Not Given DAILY YOBANY Ceftriaxone Sodium 1 gm in 50 mls @ 100 mls/hr 01/28/24 21:00 01/28/24 20:55 Rocephin 1 Gm/Ns 50 Ml IVPB Infused Q24H YOBANY Infusion Losartan Potassium 100 mg 01/28/24 09:00 01/29/24 07:48 Losartan Potassium 100 Mg Tablet PO 100 mg DAILY YOBANY Administration Metoprolol Succinate 50 mg 01/29/24 09:00 01/29/24 09:04
[2024-01-29 14:00] VITALS: BP 111/80; PULSE 61; RESP 17; TEMP 36.2; O2SAT 97
[2024-01-29 20:00] VITALS: BP 110/71; PULSE 70; RESP 16; TEMP 36.6; O2SAT 96
[2024-01-29 20:52] VITALS: PULSE 72
[2024-01-29] MEDS: METOPROLOL SUCCINATE EXT REL 50 MG TABCR PO (20:52)
[2024-01-30 06:00] VITALS: BP 143/60; PULSE 72; RESP 16; TEMP 36.1; O2SAT 96
--- NOTE | 2024-01-30 06:36 | PC.NURSE ---
On 01/30/24, the SLAB STRIPPER, [Barb ], provided care and completed [facility] documentation on this patient. I have reviewed the SLAB STRIPPER's documentation and agree with the findings.
--- NOTE | 2024-01-30 06:40 | PC.NURSE ---
On 01/30/24, the HEMATOLOGY SPECIALIST, [ Barb], provided care and completed [facility] on this patient. I have reviewed the HEMATOLOGY SPECIALIST's documentation and agree with the findings.
[2024-01-30] MEDS: METOPROLOL SUCCINATE EXT REL 50 MG TABCR PO ×2 (08:28→20:43)
[2024-01-30] MEDS: ENOXAPARIN 40 MG/0.4 ML SYRINGE SUB-Q (08:28)
[2024-01-30] MEDS: hydroCHLOROthiazide 6.25 MG TABLET 12.5 MG PO (08:28)
[2024-01-30] MEDS: LOSARTAN POTASSIUM 100 MG TABLET PO (08:28)
[2024-01-30] MEDS: oxyBUTYnin CHLORIDE XL 5 MG TAB.ER.24 10 MG PO (08:28)
[2024-01-30] MEDS: polyethylene glycoL 3350 17 GM POWD.PACK PO (08:28)
[2024-01-30] MEDS: POTASSIUM CHLORIDE 20 MEQ PACKET (FOR LIQUID) PO (08:29)
[2024-01-30] MEDS: amLODIPine BESYLATE 5 MG TABLET PO (08:29)
[2024-01-30] MEDS: ATORVASTATIN 20 MG TABLET PO (08:29)
[2024-01-30] MEDS: AZITHROMYCIN 250 MG TABLET PO (08:29)
[2024-01-30] MEDS: MULTIVITAMINS THERAPEUTIC TAB (*BKC) 1 TABLET PO (08:29)
[2024-01-30] MEDS: PANTOPRAZOLE 40 MG TABLET PO (08:29)
--- NOTE | 2024-01-30 08:58 | PM.IMPN ---
Progress Note: A&P Assessment and Plan (1) Ankle fracture, left: Code(s): S82.892A - Other fracture of left lower leg, initial encounter for closed fracture Status: Acute Assessment and Plan: - ortho consult - pain control prn- non weight bearing - surgery on thursday- was seen per cardiology and no interventions are needed from cardiology standpoint - lovenox for DVT prophylaxis - work with PT/OT -NPO thursday at midnight and surgery on wednesday 01/31 (2) Bilateral pneumonia: Code(s): J18.9 - Pneumonia, unspecified organism Status: Acute Assessment and Plan: - iv rocephin/zithromax - IS -monitor (3) Gastro-esophageal reflux disease without esophagitis: Code(s): K21.9 - Gastro-esophageal reflux disease without esophagitis Status: Acute Assessment and Plan: -will continue home med (4) Hypercholesterolemia: Code(s): E78.00 - Pure hypercholesterolemia, unspecified Status: Acute Assessment and Plan: continue home med (5) Hypertension: Qualifiers: Hypertension type: primary hypertension Qualified Code(s): I10 - Essential (primary) hypertension Code(s): I10 - Essential (primary) hypertension Status: Acute Assessment and Plan: will continue home meds and monitor bp - on metoprolol for h/o arrhythmia about 20 years ago - metoprolol dose slightly decreased as well as HCTZ- will monitor for now - he is following with cardiology outpt (6) Obstructive sleep apnea: Code(s): G47.33 - Obstructive sleep apnea (adult) (pediatric) Status: Acute Assessment and Plan: home cpap (7) Hypokalemia: Code(s): E87.6 - Hypokalemia Status: Acute Assessment and Plan: - will decrease hctz and add k supplements - monitor Plan lovenox per ortho Time Spent With Patient Time with patient: 25 - 35 minutes Subjective Date/time seen: 01/30/24 08:58 Interval history: Narrative: 83 y.o male with PMH/o BPH,malignant neoplast of bladder, depression, HTN, HLD, gerd admitted from ED for fall yesterday and lt ankle pain/lt femur- he was seen in [place] ER and sent home with splint/crutches and ortho f/u. He was seen per DR Marvin- pt ankle needed surgical repair-so he was sent to ED . xray, ekg and lab work is completed in ed. There was concern for pneumonia on imaging- so pt was started on IV Rocephin and azithromycin after blood cultures were obtained. Pt is currently NPO until we know the plan and ortho sees him. he is alert, pleasant, reports pain is very tolerable. 01/28- noted that pt is on 4 agents for bp- amlodipine, metoprolol, losartan and hctz. will decrease doses for hctz and Metoprol. may need to de escalate some meds as bp is well controlled. He reports no known cardiac events- no MIs, no CHF. ortho saw him and plan for possible surgery on thursday- will need cardiac consult for cardiac risk assessment -consult was placed per DR Subramanian. 01/29- pt is seen and examined. Was seen per cardiology yesterday- apparently he did have some arrhythmia about 20 yeras ago but no cardiovascular history since. NO new interventions were recommended per cards. We will leave metoprolol alone then and monitor BP. if needed will stop amlodipine tehn or titrate others down. Plan NPO thursday at midnight and surgery on thursday. Review of Systems Constitutional: Constitutional: Denies chills Eyes: Eyes: Denies photophobia Cardiovascular: Cardiovascular: Denies chest pain Respiratory: Respiratory: Denies chest congestion and Denies cough Gastrointestinal: Gastrointestinal: Denies abdominal pain and Denies melena Genitourinary: Genitourinary: Denies hematuria and Denies dysuria Exam Const: General: comfortable Eyes: Direct Ophthalmoscopy: No photophobia Resp: Effort & Inspection: normal respiratory effort Cardio: Rate: regular rate Rhythm: regular rhythm Skin: General skin exam: normal color Other: skin i
--- NOTE | 2024-01-30 11:11 | PM.PNORT ---
Progress Note: A&P Assessment and Plan (1) Fracture of shaft of left fibula: Qualifiers: Encounter type: subsequent encounter Fracture type: closed Fracture morphology: comminuted Fracture alignment: displaced Fracture healing: with routine healing Qualified Code(s): S82.452D - Displaced comminuted fracture of shaft of left fibula, subsequent encounter for closed fracture with routine healing Code(s): S82.402A - Unspecified fracture of shaft of left fibula, initial encounter for closed fracture Status: Acute Assessment and Plan: Patient is supine left leg elevated on 2 pillows. He is comfortable in the splint. Will order BMP to check his potassium level tomorrow yesterday was 3.2 and oral potassium supplementation has been initiated. Will check a chest x-ray tomorrow to make sure he does not have more severe radiographic pulmonary consolidation. He remains on ceftriaxone for by lobar infiltrates. I have not seen him cough and he has not had shortness of breath. And this morning is pulse ox reading is 96% on. We will ask pharmacy to discontinue Lovenox after tomorrow morning's dose. Plan is Surgical repair of his left ankle injury on a afternoon. (2) Acute disruption of syndesmosis of ankle joint: Code(s): S93.439A - Sprain of tibiofibular ligament of unspecified ankle, initial encounter Status: Acute (3) Fracture of posterior malleolus of left tibia: Qualifiers: Encounter type: subsequent encounter Fracture type: closed Fracture healing: with routine healing Qualified Code(s): S82.392D - Other fracture of lower end of left tibia, subsequent encounter for closed fracture with routine healing Code(s): S82.392A - Other fracture of lower end of left tibia, initial encounter for closed fracture Status: Acute Subjective Subjective Date/Time Seen: 01/30/24 11:11 Objective Data Vital Signs Vital Signs: Vital Signs - 24 hr 01/29/24 11:22 01/29/24 14:00 01/29/24 20:52 Temperature 36.2 C L Pulse Rate 61 72 Respiratory Rate 17 Blood Pressure 111/80 Pulse Oximetry 97 Oxygen Delivery Room Air 01/29/24 20:00 01/29/24 20:00 01/30/24 06:00 Temperature 36.6 C 36.1 C L Pulse Rate 70 72 Respiratory Rate 16 16 Blood Pressure 110/71 143/60 H Pulse Oximetry 96 96 Oxygen Delivery Room Air 01/30/24 08:00 Temperature Pulse Rate Respiratory Rate Blood Pressure Pulse Oximetry Oxygen Delivery Room Air Intake/Output Intake/Output: Intake & Output 01/27/24 01/28/24 01/29/24 01/30/24 23:59 23:59 23:59 23:59 Intake Total 676 600 8652 490 Output Total 868 080 7092 500 Balance -50 -80 810 -10 Meds/Results Medications: Active Medications Generic Name Dose Route Start Last Admin Trade Name Amanda PRN Reason Stop Dose Admin Amlodipine Besylate 5 mg 01/28/24 09:00 01/30/24 08:29 Amlodipine Besylate 5 Mg Tablet PO 5 mg DAILY YOBANY Administration Atorvastatin Calcium 20 mg 01/28/24 09:00 01/30/24 08:29 Atorvastatin 20 Mg Tablet PO 20 mg DAILY YOBANY Administration Azithromycin 250 mg 01/28/24 09:00 01/30/24 08:29 Azithromycin 250 Mg Tablet PO 01/31/24 09:01 250 mg DAILY YOBANY Administration Enoxaparin Sodium 40 mg 01/28/24 13:00 01/30/24 08:28 Enoxaparin 40 Mg/0.4 Ml Syringe SUB-Q 40 mg DAILY YOBANY Administration Hydrochlorothiazide 12.5 mg 01/29/24 09:00 01/30/24 08:28 Hydrochlorothiazide 6.25 Mg Tablet PO 12.5 mg DAILY YOBANY Administration Ceftriaxone Sodium 1 gm in 50 mls @ 100 mls/hr 01/28/24 21:00 01/29/24 21:22 Rocephin 1 Gm/Ns 50 Ml IVPB Infused Q24H YOBANY Infusion Losartan Potassium 100 mg 01/28/24 09:00 01/30/24 08:28 Losartan Potassium 100 Mg Tablet PO 100 mg DAILY YOBANY Administration Metoprolol Succinate 50 mg 01/29/24 09:00 01/30/24 08:28 Metoprolol Succinate Ext Rel 50 Mg Tabcr PO 50 mg Q12HR YOBANY Administration Multivitamins
[2024-01-30 14:00] VITALS: BP 139/64; PULSE 71; RESP 18; TEMP 36.2; O2SAT 99
[2024-01-30 20:43] VITALS: PULSE 71
[2024-01-30 22:00] VITALS: BP 129/71; PULSE 69; RESP 20; TEMP 36.6; O2SAT 95
[2024-01-31 06:00] VITALS: BP 147/72; PULSE 80; RESP 20; TEMP 36.9; O2SAT 92
[2024-01-31 06:38] LABS: Anion Gap 9 mmol/L (4-12); Blood Urea Nitrogen 16 mg/dL (9-20); Calcium 9.2 mg/dL (8.4-10.2); Carbon Dioxide 25 mmol/L (22-30); Chloride 107 mmol/L (98-107); Estimated CRCL calculation 58 ml/min; Estimated Glomerular Filt Rate > 60; Glucose 105 mg/dL (65-110); Potassium 3.8 mmol/L (3.4-5.0); Sodium 141 mmol/L (137-145)
[2024-01-31] MEDS: MULTIVITAMINS THERAPEUTIC TAB (*BKC) 1 TABLET PO (08:34)
[2024-01-31] MEDS: ATORVASTATIN 20 MG TABLET PO (08:34)
[2024-01-31] MEDS: amLODIPine BESYLATE 5 MG TABLET PO (08:34)
[2024-01-31] MEDS: POTASSIUM CHLORIDE 20 MEQ PACKET (FOR LIQUID) PO (08:34)
[2024-01-31] MEDS: hydroCHLOROthiazide 6.25 MG TABLET 12.5 MG PO (08:34)
[2024-01-31] MEDS: PANTOPRAZOLE 40 MG TABLET PO (08:34)
[2024-01-31] MEDS: AZITHROMYCIN 250 MG TABLET PO (08:34)
[2024-01-31] MEDS: oxyBUTYnin CHLORIDE XL 5 MG TAB.ER.24 10 MG PO (08:34)
[2024-01-31] MEDS: LOSARTAN POTASSIUM 100 MG TABLET PO (08:35)
[2024-01-31] MEDS: METOPROLOL SUCCINATE EXT REL 50 MG TABCR PO ×2 (08:35→20:05)
[2024-01-31] MEDS: polyethylene glycoL 3350 17 GM POWD.PACK PO (08:35)
--- NOTE | 2024-01-31 09:47 | PM.IMPN ---
Progress Note: A&P Assessment and Plan (1) Ankle fracture, left: Code(s): S82.892A - Other fracture of left lower leg, initial encounter for closed fracture Status: Acute Assessment and Plan: - ortho consult - pain control prn- non weight bearing - surgery on thursday- was seen per cardiology and no interventions are needed from cardiology standpoint - lovenox for DVT prophylaxis - work with PT/OT -NPO thursday at midnight and surgery on wednesday 01/31 (2) Bilateral pneumonia: Code(s): J18.9 - Pneumonia, unspecified organism Status: Acute Assessment and Plan: - iv rocephin/zithromax - IS -monitor today is last dose for both- will finfish the course chest xray is repeated- IMPRESSION: 1. Stable chronic interstitial lung disease. 2. Large hiatal hernia. (3) Gastro-esophageal reflux disease without esophagitis: Code(s): K21.9 - Gastro-esophageal reflux disease without esophagitis Status: Acute Assessment and Plan: -will continue home med (4) Hypercholesterolemia: Code(s): E78.00 - Pure hypercholesterolemia, unspecified Status: Acute Assessment and Plan: continue home med (5) Hypertension: Qualifiers: Hypertension type: primary hypertension Qualified Code(s): I10 - Essential (primary) hypertension Code(s): I10 - Essential (primary) hypertension Status: Acute Assessment and Plan: will continue home meds and monitor bp - on metoprolol for h/o arrhythmia about 20 years ago - metoprolol dose slightly decreased as well as HCTZ- will monitor for now - he is following with cardiology outpt (6) Obstructive sleep apnea: Code(s): G47.33 - Obstructive sleep apnea (adult) (pediatric) Status: Acute Assessment and Plan: home cpap (7) Hypokalemia: Code(s): E87.6 - Hypokalemia Status: Acute Assessment and Plan: - will decrease hctz and add k supplements - monitor Plan lovenox per ortho- hold prior to procedure Time Spent With Patient Time with patient: 25 - 35 minutes Subjective Date/time seen: 01/31/24 09:47 Interval history: Narrative: 83 y.o male with PMH/o BPH,malignant neoplast of bladder, depression, HTN, HLD, gerd admitted from ED for fall yesterday and lt ankle pain/lt femur- he was seen in [place] ER and sent home with splint/crutches and ortho f/u. He was seen per DR Wong- pt ankle needed surgical repair-so he was sent to ED . xray, ekg and lab work is completed in ed. There was concern for pneumonia on imaging- so pt was started on IV Rocephin and azithromycin after blood cultures were obtained. Pt is currently NPO until we know the plan and ortho sees him. he is alert, pleasant, reports pain is very tolerable. 01/28- noted that pt is on 4 agents for bp- amlodipine, metoprolol, losartan and hctz. will decrease doses for hctz and Metoprol. may need to de escalate some meds as bp is well controlled. He reports no known cardiac events- no MIs, no CHF. ortho saw him and plan for possible surgery on thursday- will need cardiac consult for cardiac risk assessment -consult was placed per DR Subramanian. 01/29- pt is seen and examined. Was seen per cardiology yesterday- apparently he did have some arrhythmia about 20 yeras ago but no cardiovascular history since. NO new interventions were recommended per cards. We will leave metoprolol alone then and monitor BP. if needed will stop amlodipine tehn or titrate others down. Plan NPO thursday at midnight and surgery on thursday. 01/30- no acute events overnight. Give lovenox this am and hold tomorrow am dose. surgery 7/8 am. BP reviewed and stable. K- 3.8 this am, BUN/Cr wnl, wbc downtrending. Today is last dose for his antibiotics-will complete the course- chest xray is repeated per ortho. surgery is set for tomorrow, 01/31- 2 pm Review of Systems Constitutional: Constitutional: Denies chills Eyes: Eyes: Denies photophobia Cardiovascular: Car
--- NOTE | 2024-01-31 11:57 | PM.PNORT ---
Progress Note: A&P Assessment and Plan (1) Fracture of shaft of left fibula: Qualifiers: Encounter type: subsequent encounter Fracture type: closed Fracture morphology: comminuted Fracture alignment: displaced Fracture healing: with routine healing Qualified Code(s): S82.452D - Displaced comminuted fracture of shaft of left fibula, subsequent encounter for closed fracture with routine healing Code(s): S82.402A - Unspecified fracture of shaft of left fibula, initial encounter for closed fracture Status: Acute Assessment and Plan: Patient is scheduled for surgical repair of left ankle tomorrow at 2:00 p.m.. His Lovenox is now on hold. He will be NPO after midnight. Vanco and Ancef her ordered for immediately before surgery. His chest x-ray showed chronic interstitial disease no obvious infiltrates. His potassium is up to 3.8 with the oral supplementation. He had no additional questions today. Continue with elevation his toes and forefoot shows no significant swelling today. (2) Acute disruption of syndesmosis of ankle joint: Code(s): S93.439A - Sprain of tibiofibular ligament of unspecified ankle, initial encounter Status: Acute (3) Fracture of posterior malleolus of left tibia: Qualifiers: Encounter type: subsequent encounter Fracture type: closed Fracture healing: with routine healing Qualified Code(s): S82.392D - Other fracture of lower end of left tibia, subsequent encounter for closed fracture with routine healing Code(s): S82.392A - Other fracture of lower end of left tibia, initial encounter for closed fracture Status: Acute Subjective Subjective Date/Time Seen: 01/31/24 11:57 Objective Data Vital Signs Vital Signs: Vital Signs - 24 hr 01/30/24 14:00 01/30/24 20:43 01/30/24 20:00 Temperature 36.2 C L Pulse Rate 71 71 Respiratory Rate 18 Blood Pressure 139/64 Pulse Oximetry 99 Oxygen Delivery Room Air 01/30/24 22:00 01/31/24 06:00 01/31/24 08:00 Temperature 36.6 C 36.9 C Pulse Rate 69 80 Respiratory Rate 20 20 Blood Pressure 129/71 147/72 H Pulse Oximetry 95 92 Oxygen Delivery Room Air Intake/Output Intake/Output: Intake & Output 01/28/24 01/29/24 01/30/2424 23:59 23:59 23:59 23:59 Intake Total 770 2060 1690 790 Output Total 850 1250 1600 1050 Balance -80 810 90 -260 Meds/Results Medications: Active Medications Generic Name Dose Route Start Last Admin Trade Name Amanda PRN Reason Stop Dose Admin Amlodipine Besylate 5 mg 01/28/24 09:00 01/31/24 08:34 Amlodipine Besylate 5 Mg Tablet PO 5 mg DAILY YOBANY Administration Atorvastatin Calcium 20 mg 01/28/24 09:00 01/31/24 08:34 Atorvastatin 20 Mg Tablet PO 20 mg DAILY YOBANY Administration Enoxaparin Sodium 40 mg 01/28/24 13:00 01/30/24 08:28 Enoxaparin 40 Mg/0.4 Ml Syringe SUB-Q 40 mg DAILY YOBANY Administration Hydrochlorothiazide 12.5 mg 01/29/24 09:00 01/31/24 08:34 Hydrochlorothiazide 6.25 Mg Tablet PO 12.5 mg DAILY YOBANY Administration Ceftriaxone Sodium 1 gm in 50 mls @ 100 mls/hr 01/28/24 21:00 01/30/24 20:41 Rocephin 1 Gm/Ns 50 Ml IVPB 100 mls/hr Q24H YOBANY Administration Cefazolin Sodium 2 gm in 50 mls @ 100 mls/hr 02/01/24 12:00 Ancef 2 Gm/D5w 50 Ml IVPB 02/01/24 12:29 ONCE ONE Vancomycin HCl 1,250 mg in 250 mls @ 166.667 mls/hr 02/01/24 12:00 Vancomycin 1,250 Mg/Ns 250 Ml IVPB 02/01/24 13:29 ONCE ONE Losartan Potassium 100 mg 01/28/24 09:00 01/31/24 08:35 Losartan Potassium 100 Mg Tablet PO 100 mg DAILY YOBANY Administration Metoprolol Succinate 50 mg 01/29/24 09:00 01/31/24 08:35 Metoprolol Succinate Ext Rel 50 Mg Tabcr PO 50 mg Q12HR YOBANY Administration Multivitamins Therapeutic 1 tablet 01/28/24 09:00 01/31/24 08:34 Multivitamins Therapeutic Tab (*Bkc) PO 1 tablet DAILY YOBANY Administration Oxybutynin Chloride 10 mg
[2024-01-31] MEDS: TRIAMCINOLONE ACET 0.1% CREAM 80 GM TUBE 1 APPLIC TOPICAL (11:58)
[2024-01-31 14:00] VITALS: BP 130/68; PULSE 84; RESP 19; TEMP 36.3; O2SAT 95
[2024-01-31 20:05] VITALS: PULSE 72
[2024-01-31 21:45] VITALS: BP 127/51; PULSE 72; RESP 18; TEMP 36.5; O2SAT 97
[2024-02-01] VITALS (12 sets, daily range): BP systolic 137–159; BP diastolic 60–79; PULSE 56–88; RESP 16–24; TEMP 35.9–36.7; O2SAT 95–100
[2024-02-01] MEDS: amLODIPine BESYLATE 5 MG TABLET PO (09:03)
[2024-02-01] MEDS: METOPROLOL SUCCINATE EXT REL 50 MG TABCR PO ×2 (09:03→20:24)
--- NOTE | 2024-02-01 09:15 | PM.IMPN ---
Progress Note: A&P Assessment and Plan (1) Ankle fracture, left: Code(s): S82.892A - Other fracture of left lower leg, initial encounter for closed fracture Status: Acute Assessment and Plan: - ortho consult - pain control prn- non weight bearing - surgery on thursday- was seen per cardiology and no interventions are needed from cardiology standpoint - lovenox for DVT prophylaxis - work with PT/OT -NPO thursday at midnight and surgery on wednesday 01/31 (2) Bilateral pneumonia: Code(s): J18.9 - Pneumonia, unspecified organism Status: Acute Assessment and Plan: - iv rocephin/zithromax - IS -monitor today is last dose for both- will finfish the course chest xray is repeated- IMPRESSION: 1. Stable chronic interstitial lung disease. 2. Large hiatal hernia. 01/31- off antibiotics now- will continue IS (3) Gastro-esophageal reflux disease without esophagitis: Code(s): K21.9 - Gastro-esophageal reflux disease without esophagitis Status: Acute Assessment and Plan: -will continue home med (4) Hypercholesterolemia: Code(s): E78.00 - Pure hypercholesterolemia, unspecified Status: Acute Assessment and Plan: continue home med (5) Hypertension: Qualifiers: Hypertension type: primary hypertension Qualified Code(s): I10 - Essential (primary) hypertension Code(s): I10 - Essential (primary) hypertension Status: Acute Assessment and Plan: will continue home meds and monitor bp - on metoprolol for h/o arrhythmia about 20 years ago - metoprolol dose slightly decreased as well as HCTZ- will monitor for now - he is following with cardiology outpt (6) Obstructive sleep apnea: Code(s): G47.33 - Obstructive sleep apnea (adult) (pediatric) Status: Acute Assessment and Plan: home cpap (7) Hypokalemia: Code(s): E87.6 - Hypokalemia Status: Acute Assessment and Plan: - will decrease hctz and add k supplements - monitor - reviewed and stable Plan lovenox per ortho- hold prior to procedure Time Spent With Patient Time with patient: 25 - 35 minutes Subjective Date/time seen: 02/01/24 09:15 Interval history: Narrative: 83 y.o male with PMH/o BPH,malignant neoplast of bladder, depression, HTN, HLD, gerd admitted from ED for fall yesterday and lt ankle pain/lt femur- he was seen in [place] ER and sent home with splint/crutches and ortho f/u. He was seen per DR Wong- pt ankle needed surgical repair-so he was sent to ED . xray, ekg and lab work is completed in ed. There was concern for pneumonia on imaging- so pt was started on IV Rocephin and azithromycin after blood cultures were obtained. Pt is currently NPO until we know the plan and ortho sees him. he is alert, pleasant, reports pain is very tolerable. 01/28- noted that pt is on 4 agents for bp- amlodipine, metoprolol, losartan and hctz. will decrease doses for hctz and Metoprol. may need to de escalate some meds as bp is well controlled. He reports no known cardiac events- no MIs, no CHF. ortho saw him and plan for possible surgery on thursday- will need cardiac consult for cardiac risk assessment -consult was placed per DR Subramanian. 01/29- pt is seen and examined. Was seen per cardiology yesterday- apparently he did have some arrhythmia about 20 yeras ago but no cardiovascular history since. NO new interventions were recommended per cards. We will leave metoprolol alone then and monitor BP. if needed will stop amlodipine tehn or titrate others down. Plan NPO thursday at midnight and surgery on thursday. 01/30- no acute events overnight. Give lovenox this am and hold tomorrow am dose. surgery 7 am. BP reviewed and stable. K- 3.8 this am, BUN/Cr wnl, wbc downtrending. Today is last dose for his antibiotics-will complete the course- chest xray is repeated per ortho. surgery is set for tomorrow, 01/31- 2 pm 01/31- seen and examined. It seems his BP is slightly el
--- NOTE | 2024-02-01 09:56 | PM.PNCARD ---
Progress Note: A&P Assessment and Plan (1) Fracture of shaft of left fibula: Qualifiers: Encounter type: subsequent encounter Fracture type: closed Fracture morphology: comminuted Fracture alignment: displaced Fracture healing: with routine healing Qualified Code(s): S82.452D - Displaced comminuted fracture of shaft of left fibula, subsequent encounter for closed fracture with routine healing Code(s): S82.402A - Unspecified fracture of shaft of left fibula, initial encounter for closed fracture Status: Acute Assessment and Plan: Waiting operating room today. Low risk for surgery (2) Hypertension: Qualifiers: Hypertension type: primary hypertension Qualified Code(s): I10 - Essential (primary) hypertension Code(s): I10 - Essential (primary) hypertension Status: Acute Assessment and Plan: Continue losartan, metoprolol and hydrochlorothiazide (3) Hypercholesterolemia: Code(s): E78.00 - Pure hypercholesterolemia, unspecified Status: Acute Assessment and Plan: Continue atorvastatin Subjective Date/time seen: 02/01/24 09:56 Interval history: Narrative: This is an 83-year-old man who reports a history of a brief hospitalization for treatment of an arrhythmia approximately 20 years ago but no significant cardiovascular history since then. He enters the hospital after sustaining a complicated fracture of the left ankle following a mechanical fall at home. The avascular risk for surgical treatment of this is low and he does not require any additional or preoperative cardiac evaluation in my opinion. His cardiac history is significant for a tachyarrhythmia that was treated couple of decades ago but he has not had any clinically significant cardiac events in a long time. Date of service 02/01/2024: Awaiting surgery today. No chest pain, shortness of breath. Review of Systems Constitutional: Constitutional: Reports no additional constitutional complaints Eyes: Eyes: Reports no additional eye complaints ENT: Reports system reviewed and no additional complaints, except as documented Cardiovascular: Cardiovascular: Reports no additional cardiovascular complaints Respiratory: Respiratory: Reports no additional respiratory complaints Gastrointestinal: Gastrointestinal: Reports no additional gastrointestinal complaints Musculoskeletal: Musculoskeletal: Reports as per HPI Integumentary/Breasts: Skin/Breast: Reports system reviewed and no additional complaints, except as docu Neurologic: Reports system reviewed and no additional complaints, except as documented Endocrine: Endocrine: Reports no additional endocrine complaints Hematologic/Lymphatic: Hematologic/Lymphatic: Reports no additional hematologic/lymphatic complaints Allergic/Immunologic: Allergic/Immunologic: Reports no additional allergic/immunologic complaints Exam Const: General: comfortable and no acute distress Other: Pleasant white male appearing his stated age no distress HENMT: Mouth: Yes moist mucous membranes Eyes: Sclera: sclerae normal Neck: Neck: supple and no JVD Resp: Effort & Inspection: normal respiratory effort Auscultation: clear to auscultation bilaterally Cardio: Rate: regular rate Rhythm: regular rhythm Other: No murmur no gallop GI: Auscultation: normal bowel sounds Skin: General skin exam: normal color Neuro: Other: Alert and oriented x3 Extrem: Other: Left ankle is immobilized and elevated. No edema on the right, normal perfusion Objective Data Vital Signs Vital Signs: Vital Signs - 24 hr 01/31/24 14:00 01/31/24 20:05 01/31/24 21:45 Temperature 36.3 C L 36.5 C Pulse Rate 84 72 72 Respiratory Rate 19 18 Blood Pressure 130/68 127/51 L Pulse Oximetry 95 97 02/01/24 05:38 Temperature 36.6 C Pulse Rate 76 Respiratory Rate 18 Blood Pressure 148/69 H Pulse Oximetry 98 Intake/Output Intake
[2024-02-01] MEDS: LACTATED RINGERS 1,000 ML 30 ML IV CONT ×2 (12:45→18:04)
--- NOTE | 2024-02-01 12:56 | WPDANESEPPF ---
Anes - Initial Pre Proc Eval Procedure: Operation Date: 02/01/24 14:00 Proposed Procedures p Open Reduction Internal Fixation of Left Posterior Malleolus, Syndesmotic Repair - Justin Wong MD Date/Time: 02/01/24 12:56 Surgeon: Kerrie Hamilton MD Pre Op Diagnosis: Ankle Fracture Patient Data Age: 83 Gender: M Height: 1.7 m Weight: 84.5 kg Last Vital Signs Temp 36.7 C 02/01/24 12:50 Pulse 56 L 02/01/24 12:50 Resp 18 02/01/24 12:50 BP 137/60 02/01/24 12:50 Pulse Ox 96 02/01/24 12:50 O2 Del Method Room Air 02/01/24 12:50 Allergies Allergy/AdvReac Type Severity Reaction Status Date / Time aspirin AdvReac Intermediate Headache Verified 01/28/24 12:49 Home Medications Medication Instructions Recorded Confirmed Type fish hdh--ank C-vit E 2,000 1 g PO DAILY 10/30/22 01/27/24 History mg-650 mg-12 mg/2.5 g emulsion packt losartan 100 mg tablet 100 mg PO DAILY #90 tabs 10/08/23 01/27/24 Rx omeprazole 20 mg capsule,delayed 20 mg PO DAILY #90 caps 10/08/23 01/27/24 Rx release amlodipine 5 mg tablet 5 mg PO DAILY #90 tabs 10/29/23 01/27/24 Rx coenzyme Q10 10 mg capsule (Co 100 mg PO ONCE 12/01/23 01/27/24 History Q-10) hydrochlorothiazide 25 mg tablet 25 mg PO DAILY #90 tabs 12/01/23 01/27/24 Rx triamcinolone acetonide 0.1 % 1 applic topical BID #80 grams 12/30/23 01/27/24 Rx topical cream metoprolol succinate 100 mg 100 mg PO BID #90 tabs 01/12/24 01/27/24 Rx tablet,extended release 24 hr Prilosec OTC 20 mg PO DAILY 01/27/24 01/27/24 History atorvastatin 20 mg tablet 20 mg PO DAILY 01/27/24 01/27/24 History multivitamin 1 tablet PO DAILY 01/27/24 01/27/24 History oxybutynin chloride 10 mg 0.5 mg PO DAILY 01/27/24 01/27/24 History tablet,extended release 24 hr oxybutynin chloride 5 mg 10 mg PO DAILY 01/27/24 01/27/24 History tablet,extended release 24 hr tamsulosin 0.4 mg capsule 0.4 mg PO DIRECTED 01/27/24 01/27/24 History Patient hx anesthesia problems: none Family hx anesthesia problems: none Results Review: All pre-operative results and documents have been reviewed as part of the pre-operative evaluation. [facility] Past Medical History Medical History Atherosclerosis of aorta Benign prostatic hyperplasia with lower urinary tract symptoms Decreased urine stream Gastro-esophageal reflux disease without esophagitis Hypercholesterolemia Hypertension Major depressive disorder, recurrent, in partial remission PAC (premature atrial contraction) Personal history of colonic polyps Personal history of malignant neoplasm of bladder Surgical History Surgical History History of back surgery History of hernia repair Family History Family History Mother Colon cancer Sibling Lung cancer Social History Social History Smoking status: Never smoker Smokeless tobacco user: chewing tobacco Second hand tobacco smoke exposure: No Alcohol intake: never Substance use: never Substance use type: does not use Do You Feel Safe in your Home?: Yes Lack of Transportation: No Lack of Food: Never True Current Housing: I Have Housing Concerned About Future Housing: No Difficulty Paying Gas/Electric Bills: No Difficulty Paying for Meds: No Currently Unemployed: No Education: High School Diploma/GED Difficulty w/ Childcare or Family Care: No Living arrangements: with family Occupation/Education: retired Gender identity (if verbalized by the patient): Male Sexual Orientation (if Verbalized by the Patient): Straight or Heterosexual Spiritual care concerns: No Anes - Eval Final PreProcedure Day of Procedure 02/01/24 12:56 Patient weight: overweight Heart: regular rate and rhythm Lungs: clear to auscultat
--- NOTE | 2024-02-01 13:03 | PC.NURSE ---
To OR per bed, IV saline locked. Family at bedside. Report given to DIANE Malone.
--- NOTE | 2024-02-01 13:14 | WPDHPUPDATE1 ---
History and Physical Update Update Date/Time: 02/01/24 13:14 History and Physical has been reviewed, including an updated exam of the patient. There are NO changes in the patient's condition. Except swelling is much better. Minimal at this time. Risks, benefits, and alternatives have been discussed and questions answered. Patient agrees to proceed with procedure.
[2024-02-01] MEDS: ceFAZolin 2 GM/D5W 50 ML 2 GM/50 ML BAG IVPB (13:26)
--- NOTE | 2024-02-01 13:39 | PCPTNOTE ---
The patient treatment was not able to be completed on 02/01/2024 due to patient out of the room for procedure. Will plan to continue treatment per plan of care.
[2024-02-01] MEDS: ceFAZolin SODIUM 1 GM VIAL (13:54)
[2024-02-01] MEDS: ceFAZolin SODIUM 1 GM VIAL 2 GM IV PUSH (16:33)
[2024-02-01] MEDS: ceFAZolin SODIUM 1 GM VIAL IRRIGATION (17:22)
--- NOTE | 2024-02-01 18:10 | W.PM.PROC2 ---
Procedure Note - Detailed Date of Procedure 02/01/24 Pre-op Diagnosis Maisonneuve fracture left proximal fibular shaft with severe syndesmotic diastasis posterior malleolus fracture and avulsion fracture of Chaputs tubercle. Post-op Diagnosis Same Procedure Performed Open reduction internal fixation posterior malleolus fracture and syndesmotic stabilization. Surgeon Justin Wong MD [employer] [facility] Anesthesia General Description of Procedure Patient was brought to the operating room general anesthesia was administered received 2 g of Ancef weight based vancomycin preoperatively. He was positioned in the lateral decubitus position with looseness in the hip breasts so that he could be rolled more prone and rolled more supine. The left leg was scrubbed with chlorhexidine cloth prior to position. After positioning the left leg was prepped and draped usual fashion all the skin covered with Ioban. Tourniquet was elevated to 275 mmHg initially and then after about 15 minutes to 300 mmHg which gave better hemostasis. A 4 in longitudinal incision was made midway between the Achilles tendon and the peroneal tendons and dissection was carried down and the sural nerve was immediately identified the subcutaneous tissues and this was protected. We incised the crural fascia and then the fascia over the flexor hallucis longus muscle and the flexor hallucis longus was elevated off the periosteum and periosteum was peeled off the proximal edge of the triangular posterior malleolus fragment. This was a type 2 a posterior malleolus fracture. It was 1 wide fragment. However there was comminution of the articular surface with small pieces seen on CT scan. We mobilized the proximal edge of the posterior malleolus fragment with a [place] elevator allowing us to extract it to comminution pieces of osteochondral bone.. Fragment was then held in reduced position with a dental pick and a single guidewire placed. We saw that this did maintain anatomic reduction of posterior malleolus on the lateral x-ray view with fluoro with exception of the small articular subchondral bone defect left from displacement the comminuted pieces. We chose a 4 hole mini fragment plate from the [employer] set which accommodates 2.7 mm screws. The plate was carefully contoured to act as a buttress plate and we slid this over the initially placed K-wire in the distal hole and then placed a screw in the 2nd from proximal hole which was just proximal to the fracture which obtained excellent purchase and compressed the plate and the fragment in position. There was no comminution of the posterior surface of this fragment so we could see anatomic reduction. 2 2.7 mm screws were placed in the distal 2 holes through the fragment. We then placed a guidewire and over this placed a 4.0 cannulated screw with washer just lateral to the plate for additional compression and fixation. The hip rest was relaxed posteriorly so that he can go into a semi supine position so we could approach the anterolateral corner of the distal tibia. We did not visualize the superficial branch of peroneal nerve but this was carefully looked for. We retracted the extensor digitorum longus muscle belly medially and we could see the widely displaced collection of fragments from the Chaputs tubercle. There was no piece large enough to accept even and mini frag screw. The collection of fragments were still attached to the insertion of the anterior distal tibial fibular ligament. A 3 eights inch incision was made anteromedially over the anteromedial tibial metaphysis dissection carried down to the bone and a ball-tipped reduction clamp applied from this point to the lateral malleolus for compression and we applied traction to the fibula and inserted a guide pin from the 4.5 cannulated screw set. We assessed the reduction under fluoro and I thought we had perfect reduction and we placed a tight rope and a 4.5 cannulated screw. My intent was to then
--- NOTE | 2024-02-01 18:14 | PM.OP ---
Procedure Note - Brief Procedure Note - Brief Date of procedure: 02/01/24 Ankle Fracture Procedure performed: ORIF of posterior malleolus and syndesmotic fixation the left ankle. Surgeon: CIELO Cleveland Description of procedure: 83-year-old male who underwent ORIF of his left ankle fracture. I was involved in the procedure including positioning patient on the OR table and first assisting through the time of surgery, including wound closure. I assisted getting patient to recovery. total time spent was 4 hours Urine output (mL): 600
[2024-02-01] MEDS: fentaNYL CITRATE INJ (*CRX) 100 MCG/2 ML VIAL 25 MCG IV PUSH ×2 (18:18→18:24)
[2024-02-01] MEDS: ACETAMINOPHEN 325 MG TABLET 650 MG PO (20:24)
[2024-02-01] MEDS: SODIUM CHLORIDE 0.9% IV 1,000 ML 125 ML IV CONT (20:24)
[2024-02-01] MEDS: oxyCODONE HCL (*CRX) 2.5 MG TAB IR PO (20:26)
[2024-02-01] MEDS: FAMOTIDINE 20 MG TABLET PO (20:26)
[2024-02-01] MEDS: MORPHINE SULFATE (*CRX) 2 MG/ML INJ IV PUSH (22:40)
[2024-02-02] VITALS (8 sets, daily range): BP systolic 118–143; BP diastolic 53–80; PULSE 58–88; RESP 18–20; TEMP 36.2–36.7; O2SAT 92–98
[2024-02-02] MEDS: ACETAMINOPHEN 325 MG TABLET 650 MG PO ×6 (00:03→20:41)
[2024-02-02] MEDS: oxyCODONE HCL (*CRX) 2.5 MG TAB IR PO ×6 (00:03→20:42)
[2024-02-02] MEDS: ceFAZolin 2 GM/D5W 50 ML 2 GM/50 ML BAG IVPB ×3 (00:05→16:55)
[2024-02-02] MEDS: VANCOMYCIN 1,000 MG/NS 250 ML 1,000 MG/250 ML BAG 250 MG IVPB ×2 (01:11→12:06)
[2024-02-02 06:15] LABS: Basophils Percent Auto 0.2 % (0.2-1.2); Eosinophils Percent Auto 0.2 % (0-4.4); Hematocrit 40.1 % (42.0-52.0); Hemoglobin 13.3 g/dL (14.0-18.0); Immature Granulocyte Absolute 0.07 K/mm3 (0.00-0.031); Immature Granulocyte Percent A 0.5 % (0-0.5); Lymphocytes Absolute Auto 1.71 K/mm3 (0.9-3.2); Lymphocytes Percent Auto 12.7 % (18.3-44.2); Mean Corpuscular HGB Conc 33.2 g/dl (32-36); Mean Corpuscular Hemoglobin 31.7 pg (26-34); Mean Corpuscular Volume 95.5 fl (80-100); Mean Platelet Volume 10.6 fl (7.4-10.4); Monocytes Absolute Auto 1.2 K/mm3 (0.1-0.6); Monocytes Percent Auto 8.6 % (2.6-8.5); Neutrophils Absolute Auto 10.4 K/mm3 (1.3-6.7); Neutrophils Percent Auto 77.8 % (45.5-73.1); Platelet Count Result 213 k/mm3 (150-375); Red Cell Distribution Width 13.3 % (11.5-14.5); White Blood Count 13.4 K/mm3 (4.5-10.0)
[2024-02-02 06:32] LABS: Anion Gap 6 mmol/L (4-12); Blood Urea Nitrogen 18 mg/dL (9-20); Calcium 9.2 mg/dL (8.4-10.2); Carbon Dioxide 29 mmol/L (22-30); Chloride 106 mmol/L (98-107); Estimated CRCL calculation 58 ml/min; Estimated Glomerular Filt Rate > 60; Glucose 119 mg/dL (65-110); Potassium 4.3 mmol/L (3.4-5.0); Sodium 141 mmol/L (137-145)
[2024-02-02] MEDS: amLODIPine BESYLATE 5 MG TABLET PO (08:04)
[2024-02-02] MEDS: polyethylene glycoL 3350 17 GM POWD.PACK PO (08:04)
[2024-02-02] MEDS: METOPROLOL SUCCINATE EXT REL 50 MG TABCR PO ×2 (08:05→20:42)
[2024-02-02] MEDS: oxyBUTYnin CHLORIDE XL 5 MG TAB.ER.24 10 MG PO (08:05)
[2024-02-02] MEDS: ATORVASTATIN 20 MG TABLET PO (08:05)
[2024-02-02] MEDS: LOSARTAN POTASSIUM 100 MG TABLET PO (08:05)
[2024-02-02] MEDS: PANTOPRAZOLE 40 MG TABLET PO (08:05)
[2024-02-02] MEDS: SENNA/DOCUSATE SODIUM TABLET 2 TAB PO ×2 (08:05→16:54)
[2024-02-02] MEDS: APIXABAN 2.5 MG TABLET PO ×2 (08:05→20:41)
[2024-02-02] MEDS: FAMOTIDINE 20 MG TABLET PO ×2 (08:05→20:41)
[2024-02-02] MEDS: hydroCHLOROthiazide 6.25 MG TABLET 12.5 MG PO (08:11)
--- NOTE | 2024-02-02 09:40 | PM.PNORT ---
Progress Note: A&P Assessment and Plan (1) Fracture of shaft of left fibula: Qualifiers: Encounter type: subsequent encounter Fracture type: closed Fracture morphology: comminuted Fracture alignment: displaced Fracture healing: with routine healing Qualified Code(s): S82.452D - Displaced comminuted fracture of shaft of left fibula, subsequent encounter for closed fracture with routine healing Code(s): S82.402A - Unspecified fracture of shaft of left fibula, initial encounter for closed fracture Status: Acute Assessment and Plan: Postop day 1. Patient had some delirium last night he states. Today he feels about back to his baseline. He has a problem the past couple of years. On questioning he initially could not remember the president's name but eventually he was able to retrieve the information after several minutes. Splint is dry and intact. He reports normal sensation in the toes and some of the forefoot. He states he had some pain last night after coming up from surgery but he is. We are and low-dose oxycodone 2.5 mg pain control. He will receive Eliquis for 6 weeks for DVT prophylaxis. I believe that rehab placement is being is arranged and he will be ready for discharge from my standpoint at this time. I have filled out the medications I would require and discharge instructions on the discharge summary (2) Acute disruption of syndesmosis of ankle joint: Code(s): S93.439A - Sprain of tibiofibular ligament of unspecified ankle, initial encounter Status: Acute (3) Fracture of posterior malleolus of left tibia: Qualifiers: Encounter type: subsequent encounter Fracture type: closed Fracture healing: with routine healing Qualified Code(s): S82.392D - Other fracture of lower end of left tibia, subsequent encounter for closed fracture with routine healing Code(s): S82.392A - Other fracture of lower end of left tibia, initial encounter for closed fracture Status: Acute Subjective Subjective Date/Time Seen: 02/02/24 09:40 Objective Data Vital Signs Vital Signs: Vital Signs - 24 hr 02/01/24 12:50 02/01/24 18:04 02/01/24 18:15 Temperature 36.7 C 36.5 C Pulse Rate 56 L 88 84 Respiratory Rate 18 24 H 20 Blood Pressure 137/60 150/75 H 159/79 H Pulse Oximetry 96 99 100 Oxygen Delivery Room Air Simple Face Mask Simple Face Mask Oxygen Flow Rate 8 8 02/01/24 18:30 02/01/24 18:45 02/01/24 19:00 Temperature Pulse Rate 76 77 78 Respiratory Rate 18 18 20 Blood Pressure 154/68 H 152/68 H 157/71 H Pulse Oximetry 95 97 99 Oxygen Delivery Nasal Cannula Nasal Cannula Nasal Cannula Oxygen Flow Rate 2 2 2 02/01/24 20:24 02/01/24 19:25 02/01/24 19:45 Temperature 36.2 C L 36.3 C L Pulse Rate 70 74 67 Respiratory Rate 20 18 Blood Pressure 151/70 H 144/71 H Pulse Oximetry 98 99 Oxygen Delivery Oxygen Flow Rate 02/01/24 20:15 02/01/24 21:15 02/02/24 00:05 Temperature 35.9 C L 36.2 C L 36.6 C Pulse Rate 72 65 78 Respiratory Rate 16 18 20 Blood Pressure 146/75 H 148/68 H 143/64 H Pulse Oximetry 100 98 92 Oxygen Delivery Oxygen Flow Rate 02/02/24 04:48 02/02/24 08:05 02/02/24 08:00 Temperature 36.3 C L 36.6 C Pulse Rate 58 L 88 74 Respiratory Rate 20 19 Blood Pressure 125/53 L 118/68 Pulse Oximetry 95 98 Oxygen Delivery Oxygen Flow Rate 02/02/24 08:40 Temperature Pulse Rate Respiratory Rate Blood Pressure Pulse Oximetry Oxygen Delivery Room Air Oxygen Flow Rate Intake/Output Intake/Output: Intake & Output 01/30/24 01/31/24 02/01/24 02/02/24 23:59 23:59 23:59 23:59 Intake Total 1740 1560 250 880 Output Total 1600 1550 1800 800 Balance 140 10 -1550 80 Meds/Results Medications: Active Medications Generic Name Dose Route Start Last Admin Trade Name Freq PRN Reason Stop Dose Admin Acetaminophen 650 mg 02/01/24 20:00 02/02/24 08:05 Acetaminophen 325 Mg Tablet PO 650
--- NOTE | 2024-02-02 09:42 | P.PNAN_ITS ---
Anes - Prog Note Post-Op Date/Time: 02/02/24 09:42 Cardiovascular status: normal Respiratory status: normal Airway patency: baseline Mental status: baseline Post-Op hydration status: normal Vital Signs: Last Vital Signs Temp 36.6 C 02/02/24 08:00 Pulse 88 02/02/24 08:05 Resp 19 02/02/24 08:00 BP 118/68 02/02/24 08:00 Pulse Ox 98 02/02/24 08:00 O2 Del Method Room Air 02/02/24 08:40 O2 Flow Rate 2 02/01/24 19:00 Pain Score (VAS): Patient asleep, no nonverbal signs of pain present at this time. I/O: Intake & Output 02/01/24 02/02/24 02/02/24 23:59 07:59 15:59 Intake Total 100 400 480 Output Total 1200 800 Balance -1100 -400 480 Laboratory Tests 02/02/24 05:56 02/02/24 05:56 02/02/24 05:56 WBC 13.4 H RBC 4.20 L Hgb 13.3 L Hct 40.1 L MCV 95.5 MCH 31.7 MCHC 33.2 RDW 13.3 Plt Count 213 MPV 10.6 H Immature Gran % (Auto) 0.5 Neut % (Auto) 77.8 H Lymph % (Auto) 12.7 L [place] % (Auto) 8.6 H Eos % (Auto) 0.2 Baso % (Auto) 0.2 Lymph # (Auto) 1.71 [place] # (Auto) 1.2 H Eos # (Auto) 0.0 Baso # (Auto) 0.0 Abs Immat Gran (auto) 0.07 H Absolute Neuts (auto) 10.4 H Absolute Nucleated RBC 0.000 Nucleated RBC % 0.0 Sodium 141 Potassium 4.3 Chloride 106 Carbon Dioxide 29 Anion Gap 6 BUN 18 Creatinine 0.80 Estim Creat Clear Calc 58 Estimated GFR > 60 Glucose 119 H Calcium 9.2 Microbiology 01/27/24 20:08 Blood Blood Culture - Final 01/27/24 18:57 Blood Blood Culture - Final Post-procedural complaints: none Patient Feedback: Patient satisfied with anesthetic care.
--- NOTE | 2024-02-02 12:07 | PC.NURSE ---
IV dextrose was delayed due to needed vascular access to obtain IV access
--- NOTE | 2024-02-02 12:38 | PM.IMPN ---
Progress Note: A&P Assessment and Plan (1) Ankle fracture, left: Code(s): S82.892A - Other fracture of left lower leg, initial encounter for closed fracture Status: Acute Assessment and Plan: - ortho consult - pain control prn- non weight bearing - surgery on thursday- was seen per cardiology and no interventions are needed from cardiology standpoint - lovenox for DVT prophylaxis - work with PT/OT -NPO thursday at midnight and surgery on 01/31- post op day 1- doing well. work with pt/ot today- car coordination working on placement - eliquis 6 weeks after surgery for DVT prophylaxis, low dose oxy for pain. ortho notes reviewed-DR Subramanian he will be ready for discharge from my standpoint at this time. I have filled out the medications I would require and discharge instructions on the discharge summary (2) Bilateral pneumonia: Code(s): J18.9 - Pneumonia, unspecified organism Status: Acute Assessment and Plan: - iv rocephin/zithromax - IS -monitor today is last dose for both- will finfish the course chest xray is repeated- IMPRESSION: 1. Stable chronic interstitial lung disease. 2. Large hiatal hernia. 01/31- off antibiotics now- will continue IS (3) Gastro-esophageal reflux disease without esophagitis: Code(s): K21.9 - Gastro-esophageal reflux disease without esophagitis Status: Acute Assessment and Plan: -will continue home med (4) Hypercholesterolemia: Code(s): E78.00 - Pure hypercholesterolemia, unspecified Status: Acute Assessment and Plan: continue home med (5) Hypertension: Qualifiers: Hypertension type: primary hypertension Qualified Code(s): I10 - Essential (primary) hypertension Code(s): I10 - Essential (primary) hypertension Status: Acute Assessment and Plan: will continue home meds and monitor bp - on metoprolol for h/o arrhythmia about 20 years ago - metoprolol dose slightly decreased as well as HCTZ- will monitor for now - he is following with cardiology outpt (6) Obstructive sleep apnea: Code(s): G47.33 - Obstructive sleep apnea (adult) (pediatric) Status: Acute Assessment and Plan: home cpap (7) Hypokalemia: Code(s): E87.6 - Hypokalemia Status: Acute Assessment and Plan: - will decrease hctz and add k supplements - monitor - reviewed and stable Plan lovenox per ortho- hold prior to procedure Time Spent With Patient Time with patient: Greater than 35 minutes Subjective Date/time seen: 02/02/24 12:38 Interval history: Narrative: 83 y.o male with PMH/o BPH,malignant neoplast of bladder, depression, HTN, HLD, gerd admitted from ED for fall yesterday and lt ankle pain/lt femur- he was seen in [place] ER and sent home with splint/crutches and ortho f/u. He was seen per DR Wong- pt ankle needed surgical repair-so he was sent to ED . xray, ekg and lab work is completed in ed. There was concern for pneumonia on imaging- so pt was started on IV Rocephin and azithromycin after blood cultures were obtained. Pt is currently NPO until we know the plan and ortho sees him. he is alert, pleasant, reports pain is very tolerable. 01/28- noted that pt is on 4 agents for bp- amlodipine, metoprolol, losartan and hctz. will decrease doses for hctz and Metoprol. may need to de escalate some meds as bp is well controlled. He reports no known cardiac events- no MIs, no CHF. ortho saw him and plan for possible surgery on thursday- will need cardiac consult for cardiac risk assessment -consult was placed per DR Subramanian. 01/29- pt is seen and examined. Was seen per cardiology yesterday- apparently he did have some arrhythmia about 20 yeras ago but no cardiovascular history since. NO new interventions were recommended per cards. We will leave metoprolol alone then and monitor BP. if needed will stop amlodipine tehn or titrate others down. Plan NPO thursday at midnight and surgery o
[2024-02-02] MEDS: CEFDINIR 300 MG CAPSULE PO (20:41)
[2024-02-03] MEDS: oxyCODONE HCL (*CRX) 2.5 MG TAB IR PO ×4 (00:44→12:51)
[2024-02-03] MEDS: ACETAMINOPHEN 325 MG TABLET 650 MG PO ×4 (00:44→12:51)
[2024-02-03 05:00] VITALS: BP 146/64; PULSE 73; RESP 18; TEMP 36.2; O2SAT 93
[2024-02-03] MEDS: APIXABAN 2.5 MG TABLET PO (08:43)
[2024-02-03] MEDS: SENNA/DOCUSATE SODIUM TABLET 2 TAB PO (08:43)
[2024-02-03] MEDS: ATORVASTATIN 20 MG TABLET PO (08:43)
[2024-02-03] MEDS: polyethylene glycoL 3350 17 GM POWD.PACK PO (08:43)
[2024-02-03] MEDS: PANTOPRAZOLE 40 MG TABLET PO (08:43)
[2024-02-03] MEDS: oxyBUTYnin CHLORIDE XL 5 MG TAB.ER.24 10 MG PO (08:43)
[2024-02-03] MEDS: CEFDINIR 300 MG CAPSULE PO (08:43)
[2024-02-03] MEDS: amLODIPine BESYLATE 5 MG TABLET PO (08:43)
[2024-02-03] MEDS: LOSARTAN POTASSIUM 100 MG TABLET PO (08:43)
[2024-02-03 08:44] VITALS: PULSE 76
[2024-02-03] MEDS: FAMOTIDINE 20 MG TABLET PO (08:44)
[2024-02-03] MEDS: METOPROLOL SUCCINATE EXT REL 50 MG TABCR PO (08:44)
[2024-02-03] MEDS: hydroCHLOROthiazide 6.25 MG TABLET 12.5 MG PO (08:44)
--- NOTE | 2024-02-03 09:43 | PCNWS ---
Weekly nutritional screen. Patient is tolerating current diet with adequate intake. No weight loss reported. No nutritional needs at this time.
--- NOTE | 2024-02-03 10:01 | PM.IMPN ---
Progress Note: A&P Assessment and Plan (1) Fracture of shaft of left fibula: Qualifiers: Encounter type: subsequent encounter Fracture type: closed Fracture morphology: comminuted Fracture alignment: displaced Fracture healing: with routine healing Qualified Code(s): S82.452D - Displaced comminuted fracture of shaft of left fibula, subsequent encounter for closed fracture with routine healing Code(s): S82.402A - Unspecified fracture of shaft of left fibula, initial encounter for closed fracture Status: Acute Assessment and Plan: - s/p Open reduction internal fixation posterior malleolus fracture and syndesmotic stabilization on 01/[address] Wong (2) Fracture of posterior malleolus of left tibia: Qualifiers: Encounter type: subsequent encounter Fracture type: closed Fracture healing: with routine healing Qualified Code(s): S82.392D - Other fracture of lower end of left tibia, subsequent encounter for closed fracture with routine healing Code(s): S82.392A - Other fracture of lower end of left tibia, initial encounter for closed fracture Status: Acute Assessment and Plan: - See #1 (3) Acute disruption of syndesmosis of ankle joint: Code(s): S93.439A - Sprain of tibiofibular ligament of unspecified ankle, initial encounter Status: Acute Assessment and Plan: - See #1 (4) Bilateral pneumonia: Code(s): J18.9 - Pneumonia, unspecified organism Status: Acute Assessment and Plan: CXR: Bilateral basal pneumonia more on the left side. - started on CAP tx: azithromycin ceftriaxone on 10/26 - Viral PCR: negative for Flu/COVID/RSV - no supplemental O2 requirement - Monitor vital signs, I&Os, neuro status and patient is a fall risk - Follow WBC, serum electrolytes, temperature curves and cultures - Send sputum cultures - Oxygen via NC; wean as tolerated. Keep SpO2 greater than 88% - Gentle IV fluid resuscitation - Ceftriaxone 2 gram IV q24H and Azithromycin 500mg IV q24H completed 02/01 Subjective Date/time seen: 02/03/24 10:01 Review of Systems Review of Systems: All systems reviewed & are unremarkable except as noted in HPI and below Objective Data Vital Signs Vital Signs: Vital Signs - 24 hr 02/02/24 12:48 02/02/24 16:00 02/02/24 20:00 Temperature 98.0 F 97.9 F Pulse Rate 74 88 88 Respiratory Rate 18 19 19 Blood Pressure 118/62 126/80 Pulse Oximetry 97 98 98 Oxygen Delivery Room Air 02/02/24 20:25 02/03/24 05:00 02/03/24 08:44 Temperature 97.2 F L 97.2 F L Pulse Rate 64 73 76 Respiratory Rate 18 18 Blood Pressure 137/72 146/64 H Pulse Oximetry 98 93 Oxygen Delivery Intake/Output Intake/Output: Intake & Output 01/31/24 02/01/24 02/02/24 02/03/24 23:59 23:59 23:59 23:59 Intake Total 9723 541 3137 790 Output Total 1550 1800 1900 1750 Balance 10 -4380 10 960 Meds/Results Medications: Active Medications Generic Name Dose Route Start Last Admin Trade Name Amanda PRN Reason Stop Dose Admin Acetaminophen 650 mg 02/01/24 20:00 02/03/24 08:43 Acetaminophen 325 Mg Tablet PO 650 mg Q4H YOBANY Administration Amlodipine Besylate 5 mg 01/28/24 09:00 02/03/24 08:43 Amlodipine Besylate 5 Mg Tablet PO 5 mg DAILY YOBANY Administration Apixaban 2.5 mg 02/02/24 09:00 02/03/24 08:43 Apixaban 2.5 Mg Tablet PO 2.5 mg Q12HR YOBANY Administration Atorvastatin Calcium 20 mg 01/28/24 09:00 02/03/24 08:43 Atorvastatin 20 Mg Tablet PO 20 mg DAILY YOBANY Administration Cefdinir 300 mg 02/02/24 21:00 02/03/24 08:43 Cefdinir 300 Mg Capsule PO 300 mg Q12HR YOBANY Administration Famotidine 20 mg 02/01/24 21:00 02/03/24 08:44 Famotidine 20 Mg Tablet PO 20 mg Q12HR YOBANY Administration Hydrochlorothiazide 12.5 mg 01/29/24 09:00 02/03/24 08:44 Hydrochlorothiazide 6.25 Mg Tablet PO 12.5 mg DAILY YOBANY Administration Losartan Potassium 100 m
[2024-02-03 10:36] LABS: Basophils Absolute Auto 0.1 K/mm3 (0.0-0.1); Basophils Percent Auto 0.4 % (0.2-1.2); Eosinophils Absolute Auto 0.3 K/mm3 (0-0.3); Eosinophils Percent Auto 2.5 % (0-4.4); Hematocrit 42.8 % (42.0-52.0); Immature Granulocyte Absolute 0.05 K/mm3 (0.00-0.031); Immature Granulocyte Percent A 0.4 % (0-0.5); Lymphocytes Absolute Auto 1.79 K/mm3 (0.9-3.2); Mean Corpuscular HGB Conc 32.7 g/dl (32-36); Mean Corpuscular Hemoglobin 31.1 pg (26-34); Mean Corpuscular Volume 95.1 fl (80-100); Mean Platelet Volume 10.7 fl (7.4-10.4); Monocytes Absolute Auto 1.1 K/mm3 (0.1-0.6); Monocytes Percent Auto 9.5 % (2.6-8.5); Neutrophils Absolute Auto 8.6 K/mm3 (1.3-6.7); Neutrophils Percent Auto 72.2 % (45.5-73.1); Platelet Count Result 239 k/mm3 (150-375); Red Cell Distribution Width 13.5 % (11.5-14.5)
[2024-02-03 10:52] LABS: Alanine Aminotransferase 20 U/L (6-50); Alkaline Phosphatase 58 U/L (38-126); Anion Gap 9 mmol/L (4-12); Aspartate Amino Transferase 22 U/L (17-59); Blood Urea Nitrogen 14 mg/dL (9-20); Calcium 9.4 mg/dL (8.4-10.2); Carbon Dioxide 28 mmol/L (22-30); Chloride 106 mmol/L (98-107); Estimated CRCL calculation 58 ml/min; Estimated Glomerular Filt Rate > 60; Glucose 124 mg/dL (65-110); Potassium 3.4 mmol/L (3.4-5.0); Sodium 143 mmol/L (137-145)
[2024-02-03 14:00] VITALS: BP 142/69; PULSE 72; RESP 18; TEMP 36.2; O2SAT 98
--- NOTE | 2024-02-03 14:43 | PM.DS ---
DS: Admitting Diagnosis Discharge Date 02/03/24 Admitting Diagnosis Fracture of shaft of left fibula Acute disruption of syndesmosis of ankle joint Fracture of posterior malleolus of left tibia Bilateral pneumonia Hypertension DS: Discharge Diagnosis Discharge Diagnosis (1) Fracture of shaft of left fibula: Qualifiers: Encounter type: subsequent encounter Fracture alignment: displaced Fracture healing: with routine healing Fracture morphology: comminuted Fracture type: closed Qualified Code(s): S82.452D - Displaced comminuted fracture of shaft of left fibula, subsequent encounter for closed fracture with routine healing Code(s): S82.402A - Unspecified fracture of shaft of left fibula, initial encounter for closed fracture Status: Acute (2) Acute disruption of syndesmosis of ankle joint: Code(s): S93.439A - Sprain of tibiofibular ligament of unspecified ankle, initial encounter Status: Acute (3) Fracture of posterior malleolus of left tibia: Qualifiers: Encounter type: subsequent encounter Fracture healing: with routine healing Fracture type: closed Qualified Code(s): S82.392D - Other fracture of lower end of left tibia, subsequent encounter for closed fracture with routine healing Code(s): S82.392A - Other fracture of lower end of left tibia, initial encounter for closed fracture Status: Acute (4) Bilateral pneumonia: Code(s): J18.9 - Pneumonia, unspecified organism Status: Acute (5) Hypertension: Qualifiers: Hypertension type: primary hypertension Qualified Code(s): I10 - Essential (primary) hypertension Code(s): I10 - Essential (primary) hypertension Status: Acute DS: Summary Hospital Course Reason for hospitalization: Fracture of shaft of left fibula Acute disruption of syndesmosis of ankle joint Fracture of posterior malleolus of left tibia Bilateral pneumonia Hypertension Hospital Course: 83 year old male with past medical history of HTN, PAC, GERD, and BPH presents to the hospital following a fall. Per chart review patient was walking when his knee gave out causing his body to twist. He was evaluated in the [place] ED and placed in a long leg splint for outpatient follow up. He followed up on 01/[address] Wong and sent to the ED for surgery and placement. Xrays from the outside facility were sent in and revealed long oblique mildly comminuted fracture of the proximal left fibular shaft, fractures of the posterior malleolus of the left ankle and [place] tubercle and julien severe diastasis between the fibula and the tibia. On arrival to the hospital patient had a head CT which showed no acute intracranial process. Chest XR revealed bilateral basal pneumonia more on the left side. He was started on community acquired pneumonia treatment at that time. Prior to surgery, ortho wanted cardiology to evaluate patient as he is 83 years old who has had reduction in physical capacity and had underlying pneumonia. Per cardiology the avascular risk for surgical treatment of this is low and he does not require any additional or preoperative cardiac evaluation. A new chest XR was obtained on 01/30 to reevaluate pneumonia severity prior to surgery. Chest XR revealed stable chronic interstitial lung disease and hiatal hernia. Patient underwent an open reduction internal fixation posterior malleolus fracture and syndesmotic stabilization on 01/[address] Wong. Patient started on DVT prophylaxis, analgesics, and PT/OT per ortho. Patient completed his course of antibiotics for pneumonia on 02/01. Prior to discharge patient had no complaints. He denied chest pain, shortness of breath, nausea/vomiting, and changes in bowel/bladder. He was working well with PT/OT and cleared for discharge from ortho. Patient discharged to [facility] in stable condition. He is to follow up with Dr. Wong as scheduled. Status at Discharge Functional status at discharge: uses
== END 2024-02-03 15:05 | DRG 492 ==
LOC: ANHED 18:50 → ANH3MEDSUR 19:30
PROVIDERS: General Practice; Nurse Practitioner Family; Orthopaedic Surgery; Physician Assistant Surgical; Student in an Organized Health Care Education/Training Program; Admitting Provider Family Medicine; Emergency Provider Emergency Medicine; PCP Family Medicine; Visit Provider Hospitalist
PROC: 0QSH04Z Reposition Left Tibia with Internal Fixation Device, Open Approach (ICD-10-PCS; principal; 2024-02-01 14:00)
DX: S82.862A Displaced Maisonneuve's fracture of left leg, initial encounter for closed fracture (principal); J18.9 Pneumonia, unspecified organism; S93.432A Sprain of tibiofibular ligament of left ankle, initial encounter; S82.892A Other fracture of left lower leg, initial encounter for closed fracture; I10 Essential (primary) hypertension; K21.9 Gastro-esophageal reflux disease without esophagitis; I70.0 Atherosclerosis of aorta; N40.1 Benign prostatic hyperplasia with lower urinary tract symptoms; E78.00 Pure hypercholesterolemia, unspecified; E87.6 Hypokalemia; F33.41 Major depressive disorder, recurrent, in partial remission; G47.33 Obstructive sleep apnea (adult) (pediatric); W18.39XA Other fall on same level, initial encounter; Z85.51 Personal history of malignant neoplasm of bladder
CPT/HCPCS: 36415; 70450; 71045; 71046; 80048; 80053; 83735; 84145; 85025; 85610; 85730; 87040; 93005; 97161; 97165; 97535; 99199; 99285; A9270; C1713; C1769; J0456; J0690; J0696; J1100; J1650; J2270; J2405; J2704; J3010; J3370; J7030; J7120

== ENCOUNTER 2024-02-13 17:52 | Inpatient (IN) | payer MEDICARE, SELFPAY ==
[2024-02-13] VITALS (12 sets, daily range): BP systolic 131–148; BP diastolic 58–79; PULSE 63–74; RESP 15–29; TEMP 36.2–36.6; O2SAT 98–100; BMI 27.3
--- NOTE | ~2024-02-13 | XR_ITS ---
EXAMINATION: XR chest 2V DATE: 02/13/2024 18:55 INDICATION: Leukocytosis TECHNIQUE: frontal and lateral views of the chest were obtained. COMPARISON: Chest radiograph dated 01/31/[address] studies dated 02/13/2024 and 10/28/2022 FINDINGS: Lung volumes have decreased. There are persistent peripheral and lower lung predominant coarse reticu lar opacities consistent with usual interstitial pneumonia (UIP) pattern chronic interstitial lung di sease with associated bronchiectasis better appreciated and without interval change on the CT imaging . No new airspace opacities, pleural effusion or pneumothorax. Heart size is normal. Retrocardiac hia astrid hernia. Multiple left or thoracic paravertebral surgical clips. Moderate lower thoracic spondylos is. IMPRESSION: 1. Decreased lung volumes with peripheral and lower lung predominant reticular opacities consistent w ith UIP pattern chronic interstitial lung disease and associated bronchiectasis. 2. Hiatal hernia. Reviewed, dictated and finalized at location A. IMPRESSION: 1. Decreased lung volumes with peripheral and lower lung predominant reticular opacities consistent with UIP pattern chronic interstitial lung disease and ass ociated bronchiectasis. 2. Hiatal hernia.
--- NOTE | ~2024-02-13 | XR_ITS ---
EXAMINATION: XR ankle LT min 3V, XR tibia fibula LT 2V DATE: 02/15/2024 09:10 INDICATION: Left tibia and fibula fracture follow-up TECHNIQUE: 1. Anteroposterior and lateral views of the left tibia and fibula were obtained. 2. Anteroposterior, oblique, mortise, and lateral views of the affected ankle were obtained. COMPARISON: None. FINDINGS: 5 mm posterior medial displacement of an oblique fracture the proximal left fibular diaphysis. Interf ragmentary screw and lateral plate and screw fixation across the posterior malleolar fracture of the distal left tibia which is in near-anatomic alignment. There is approximately 3-4 mm lucent gap along the posterior articular surface of the tibial plafond where there appears be a 3 mm depression of an intervening fragment. Distal tibiofibular syndesmotic fixation with screw and with likely tightrope type fixation with metallic buttons at either side of a lucent tunnel extending across the distal tib ia and fibular metaphyses. There is a second more cephalad lucent tunnel without buttons. The previou sly widened medial clear space. Reduced with now congruent ankle mortise. There is a residual small d isplaced fracture fragment near the distal tip of the medial malleolus without evident donor site mj ng the medial malleolus on the prior CT. No other fractures identified. Normal alignment and in the l eft mid and hindfoot with mild osteoarthritis at a few of the tarsal metatarsal joints. Joint space a t the left knee appear unremarkable on nonweightbearing imaging. IMPRESSION: 1. Reduction to near-anatomic alignment and internal fixation of the posterior malleolar fracture at the left ankle with residual 3-4 mm fracture gap along the tibial plafond resulting from depression o f a small fragment along the articular surface. 2. Successful reduction to normal alignment of the ankle mortise with syndesmotic fixation. 3. 5 mm posterior medial displacement of the proximal left fibular diaphyseal fracture which remains unfixed. Reviewed, dictated and finalized at location A. IMPRESSION: 1. Reduction to near-anatomic alignment and internal fixation of the posterior malleolar fracture at the left ankle with residual 3-4 mm fracture gap along th e tibial plafond resulting from depression of a small fragment along the articu lar surface. 2. Successful reduction to normal alignment of the ankle mortise with syndesmot ic fixation. 3. 5 mm posterior medial displacement of the proximal left fibular diaphyseal f racture which remains unfixed.
--- NOTE | ~2024-02-13 | CT_ITS ---
EXAMINATION: CT abdomen pelvis w con DATE: 02/13/2024 18:50 INDICATION: Lower abdominal pain TECHNIQUE: Computed tomography (CT) of the abdomen and pelvis was performed with 100 mL Omnipaque-350 intravenous contrast. Automated exposure control and iterative reconstruction technique were employe d. The dose-length product was 1123.29 mGy-cm. COMPARISON: 10/28/2022 FINDINGS: End seen is usual interstitial pneumonia (UIP) pattern chronic interstitial lung disease with irregul ar septal line thickening and peripheral honeycombing in the bilateral lower lungs with associated br onchiectasis. Heart size is normal. Atherosclerotic coronary artery calcifications. Aortic valve calc ification. Moderate to large sliding-type hiatal hernia. There are multiple scattered hepatic cysts m easuring up to 1.2 cm. Gallbladder, spleen, pancreas and bilateral adrenal glands are normal. There a re bilateral renal cysts the largest on the left measuring 7.1 cm. There is diffuse edematous wall th ickening of the mid to distal colon most prominent at the sigmoid colon and rectum where there is als o some stranding in the surrounding fat consistent with colitis. There are also a few scattered colon ic diverticula but without more focal inflammatory stranding to suggest diverticulitis. There is sugg estion of a 1.7 cm enhancing mass/polyp at the cecum. Small bowel and appendix are normal bladder is normal. Prostatomegaly measuring 5.4 x 4.3 cm. No abscess or free intraperitoneal gas or fluid. There is scattered nonhemodynamically significant calcified atherosclerosis of the normal caliber aorta an d many of the other arteries. No pathologically enlarged abdominal or pelvic lymphadenopathy. Likely prior right inguinal hernia mesh repair. Mild thoracic levocurvature with moderate spondylosis. Mild to moderate lumbar spondylosis with 4 mm anterolisthesis L5 on S1. IMPRESSION: 1. Colitis most likely infectious or inflammatory in etiology. 2. Indeterminate 1.7 cm enhancing mass/polyp at the tip the cecum which raise concern for malignancy. Recommend further evaluation with colonoscopy when clinically improved. 3. Moderate to large sliding-type hiatal hernia. 4. Bronchiectasis and UIP pattern chronic interstitial lung disease at the bilateral lower lungs. 5. Prostatomegaly. Reviewed, dictated and finalized at location A. IMPRESSION: 1. Colitis most likely infectious or inflammatory in etiology. 2. Indeterminate 1.7 cm enhancing mass/polyp at the tip the cecum which raise c oncern for malignancy. Recommend further evaluation with colonoscopy when clini lacy improved. 3. Moderate to large sliding-type hiatal hernia. 4. Bronchiectasis and UIP pattern chronic interstitial lung disease at the bila teral lower lungs. 5. Prostatomegaly.
--- NOTE | 2024-02-13 18:24 | ED.GENADULT ---
HPI - General Adult General Chief complaint: Recheck/Abnormal Lab/Rx Stated complaint: ABN Labs Time Seen by Provider: 02/13/24 17:56 History of Present Illness HPI narrative: 83-year-old male presenting to the emergency department for evaluation for the mucousy stools, increased leukocytosis and decreased urination. Related Data Home Medications Medication Instructions Recorded Confirmed fish [id number] C-vit E 2,000 1 g PO DAILY 10/30/22 02/03/24 mg-650 mg-12 mg/2.5 g emulsion packt coenzyme Q10 10 mg capsule (Co 100 mg PO ONCE 12/01/23 02/03/24 Q-10) atorvastatin 20 mg tablet 20 mg PO DAILY 01/27/24 02/03/24 multivitamin 1 tablet PO DAILY 01/27/24 02/03/24 oxybutynin chloride 5 mg 10 mg PO DAILY 01/27/24 02/03/24 tablet,extended release 24 hr tamsulosin 0.4 mg capsule 0.4 mg PO DIRECTED 01/27/24 02/03/24 Allergies Allergy/AdvReac Type Severity Reaction Status Date / Time aspirin AdvReac Intermediate Headache Verified 02/13/24 18:12 Review of Systems Review of Systems: All systems reviewed & are unremarkable except as noted in HPI and below PMFSH Past Medical History Medical History Atherosclerosis of aorta Benign prostatic hyperplasia with lower urinary tract symptoms Decreased urine stream Gastro-esophageal reflux disease without esophagitis Hypercholesterolemia Hypertension Major depressive disorder, recurrent, in partial remission PAC (premature atrial contraction) Personal history of colonic polyps Personal history of malignant neoplasm of bladder Surgical History Surgical History History of back surgery History of hernia repair Family History Family History Mother Colon cancer Sibling Lung cancer Social History Social History Smoking status: Never smoker Smokeless tobacco user: chewing tobacco Second hand tobacco smoke exposure: No Alcohol intake: former Substance use: never Substance use type: does not use Do You Feel Safe in your Home?: Yes Lack of Transportation: No Lack of Food: Never True Current Housing: I Have Housing Concerned About Future Housing: No Difficulty Paying Gas/Electric Bills: No Difficulty Paying for Meds: No Currently Unemployed: No Education: High School Diploma/GED Difficulty w/ Childcare or Family Care: No Living arrangements: with family Occupation/Education: retired Gender identity (if verbalized by the patient): Male Sexual Orientation (if Verbalized by the Patient): Straight or Heterosexual Spiritual care concerns: No Exam Narrative: APPEARANCE: Well-appearing HEAD: normocephalic, atraumatic. EYES: PERRLA/EOMI, conjunctivae clear. NOSE: Normal no drainage EARS:TMS clear with good light reflex. THROAT: Pharynx clear, no exudate. NECK: Supple. No adenopathy, no masses. RESPIRATORY: Airway patent, respirations nonlabored. Clear to auscultation bilaterally, no rales, rhonchi, wheezing. CARDIOVASCULAR: Regular rate and rhythm without murmurs rubs or gallops. ABDOMINAL: lower abdominal tenderness to palpation MUSCULOSKELETAL: Moves all extremities. Strength/ROM intact, No edema, No calf tenderness. NEURO: Alert. Cranial nerves II through XII intact. Grossly intact SKIN: Warm, dry. Normal Color Course Course Emergency Course: Patient was admitted for colitis Vital Signs Vital signs: Vital Signs Temperature 97.9 F 02/13/24 18:08 Pulse Rate 66 02/13/24 18:08 Respiratory Rate 16 02/13/24 18:08 Blood Pressure 131/66 02/13/24 18:08 Pulse Oximetry 99 02/13/24 18:08 Oxygen Delivery Room Air 02/13/24 18:08 Temperature 97.9 F 02/13/24 18:08 Pulse Rate 66 02/13/24 18:08 Respiratory Rate 16 02/13/24 18:08 Blood Pressure 131/66 02/13/24 18:08 Pulse O
[2024-02-13 18:26] LABS: Hematocrit 39.6 % (42.0-52.0); Hemoglobin 13.6 g/dL (14.0-18.0); Mean Corpuscular HGB Conc 34.3 g/dl (32-36); Mean Corpuscular Hemoglobin 31.9 pg (26-34); Mean Corpuscular Volume 92.7 fl (80-100); Mean Platelet Volume 10.6 fl (7.4-10.4); Platelet Count Result 252 k/mm3 (150-375); Red Blood Count 4.27 M/mm3 (4.6-6.20); Red Cell Distribution Width 13.6 % (11.5-14.5); White Blood Count 21.6 K/mm3 (4.5-10.0)
[2024-02-13 18:37] LABS: Lactic Acid Reflex 1.1 mmol/L (0.7-2.0)
[2024-02-13 18:44] LABS: INR 1.1; Prothrombin Time 15.1 Seconds (11.1-14.7)
[2024-02-13 18:45] LABS: Partial Thromboplastin Time 36.7 Seconds (22.3-36.8)
[2024-02-13 18:45] LABS: Estimated CRCL calculation 47 ml/min; Estimated Glomerular Filt Rate > 60
[2024-02-13 18:51] LABS: Alanine Aminotransferase 20 U/L (6-50); Albumin Level 3.7 g/dL (3.5-5.1); Alkaline Phosphatase 83 U/L (38-126); Anion Gap 9 mmol/L (4-12); Aspartate Amino Transferase 20 U/L (17-59); Bilirubin,Total 1.4 mg/dL (0.2-1.3); Blood Urea Nitrogen 20 mg/dL (9-20); Calcium 9.8 mg/dL (8.4-10.2); Carbon Dioxide 27 mmol/L (22-30); Chloride 100 mmol/L (98-107); Estimated CRCL calculation 52 ml/min; Estimated Glomerular Filt Rate > 60; Glucose 108 mg/dL (65-110); Potassium 2.8 mmol/L (3.4-5.0); Sodium 136 mmol/L (137-145)
[2024-02-13 18:55] LABS: Band Neutrophils Percent 2 % (0-6); Lymphocytes Absolute Manual 1.51 K/mm3 (1.1-4.5); Monocytes Absolute Manual 0.86 K/mm3 (0.1-0.90); Monocytes Percent Manual 4 % (3-9); Neutrophils Absolute Manual 19.22 K/mm3 (1.3-6.7); Neutrophils Percent Manual 87 % (46-73); Total Cells Counted 100
[2024-02-13 18:56] LABS: Platelet Estimate Adequate (Adequate); Schistocytes None Seen
[2024-02-13 19:05] LABS: Influenza A QL RT-PCR Negative (Negative); Influenza B QL RT-PCR Negative (Negative); RSV RNA, RT-PCR Negative (Negative); SARS-CoV-2 RNA PCR Negative (Negative)
[2024-02-13] MEDS: POTASSIUM CHLORIDE 20 MEQ PACKET (FOR LIQUID) 40 MEQ PO (19:39)
[2024-02-13] MEDS: SODIUM CHLORIDE 0.9% IV 1,000 ML 999 ML IV CONT (19:39)
[2024-02-13] MEDS: POTASSIUM CHLORIDE INJ 40 MEQ in SODIUM CHLORIDE 0.9% IV 500 ML 130 MEQ IVPB (19:40)
--- NOTE | 2024-02-13 19:48 | PC.NURSE ---
Report received from DIANE Chance. Assumed care of patient at this time.
[2024-02-13 19:51] LABS: Add Urine Microscopic? NO; Appearance Urine Clear (Clear); Bilirubin Urine Negative (Negative); Blood Urine Negative (Negative); Color Urine Yellow (Yellow); Glucose Urine UA Negative (Negative); Ketones Urine Negative (Negative); Leukocyte Esterase Ur Negative LEU/UL (Negative); Nitrate Urine Negative (Negative); Protein Urine Negative (Negative); Specific Grav Ur 1.039 (1.001-1.035); Urobilinogen Urine 0.2 mg/dL (<2.0); pH Urine 6.5 (5.0-9.0)
--- NOTE | 2024-02-13 21:37 | ADMGEN ---
This patient, Melo Haider, was admitted to IMU Room 201-01 on 02/13/24 at 2109. Patient/family oriented to hospital policies and general routines including ID bracelet, bed and alarms, visiting hours, pain management, procedures, bathroom and other care routines, personal items, smoking policy, room service/diet, and visiting hours. Information on how to activate the Rapid Response Team has been discussed. Patient/Family are encouraged to report perceived risks to care and to ask questions if they do not understand what they are told or what they should do.
[2024-02-13 22:37] LABS: Toxigenic C. Diff POSITIVE (NEGATIVE)
[2024-02-13] MEDS: SODIUM CHLORIDE 0.9% IV 1,000 ML 500 ML IV CONT (22:42)
[2024-02-13] MEDS: metroNIDAZOLE 500 MG/ISO 100ML 500 MG/100 ML BAG 100 MG IVPB (22:42)
[2024-02-14] VITALS (13 sets, daily range): BP systolic 112–149; BP diastolic 55–92; PULSE 59–90; RESP 16–20; TEMP 36.4–36.7; O2SAT 94–100
--- NOTE | 2024-02-14 00:02 | PM.IMHP ---
H&P: HPI History of Present Illness Date/Time: 02/14/24 00:02 Chief Complaint: Elevated home, loose stools Narrative: 83-year-old male with a past medical history of BPH, hypertension and obstructive sleep apnea who presented to the ER from acute rehab via EMS due to elevated white count and loose stools. The patient had recently been hospitalized from 01/27/2024 through 02/03/2024. The patient had fallen on 01/26/2024 in fractured his left ankle. He was evaluated by Dr. Wong 01/27/2024 and was found to have unstable fracture be nonweightbearing as he could not use crutches. Preop chest X-ray on admission was suggestive of bilateral basilar pneumonia patient was treated with Rocephin and azithromycin. The patient underwent ORIF on 02/01/2024. He completed antibiotic therapy for pneumonia on the and was discharged to acute rehab on the . He reports that he has now developed mucus C watery diarrhea several times a day that started 4-5 days ago. He is not having any abdominal pain or distension. He denies any fevers or chills. He denies decreased appetite, nausea or vomiting. He has not been having any lightheadedness or dizziness. He has been ambulating to the bathroom with a walker with the assistance of therapy at acute rehab. He reports that the pain in his ankle has decreased significantly. His reports worsens if he leaves his legs dangling. He does have a history of obstructive sleep apnea but he stopped using his CPAP because he felt like he did not needed anymore. Review of Systems Review of Systems: 12 systems were reviewed with pertinent positives and negatives per HPI. Except as documented in the HPI, all other systems were reviewed and are negative. [facility] Past Medical History Medical History Atherosclerosis of aorta Benign prostatic hyperplasia with lower urinary tract symptoms Gastro-esophageal reflux disease without esophagitis Hypercholesterolemia Hypertension Major depressive disorder, recurrent, in partial remission Obstructive sleep apnea Polysomnogram 10/2020 recommended CPAP pressure of 13 PAC (premature atrial contraction) Personal history of colonic polyps Personal history of malignant neoplasm of bladder Restless legs syndrome Surgical History Surgical History (Updated 02/14/24 @ 00:07 by Rachel Vega DO) History of back surgery History of hernia repair Status post open reduction with internal fixation of fracture Proximal left fibular shaft fracture with severe syndesmotic diastasis and posterior villus fracture avulsion fracture of the tubercle with ORIF and syndesmotic stabilization by Dr. Wong Family History Family History Mother Colon cancer Sibling Lung cancer Social History Social History (Updated 02/14/24 @ 09:17 by Rachel Vega DO) Social History: He reports that he is x2. He has been for approximately 14 years from his last . He lives at home with his 90 lb [place] Patricio. 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 He used to drink heavily. He will still occasionally have a beer but is rare. He used to chew tobacco and occasionally smoke a cigar. He quit doing that many years ago as well. He denies history of illicit substance use. Code status: DNR/DNI Healthcare power of commercial real estate attorney: Melo Contreras Smoking status: Former smoker Tobacco type: cigars and smokeless tobacco Smokeless tobacco user: chewing tobacco Second hand tobacco smoke exposure: No Alcohol intake: former Substance use: never Substance use type: does not use Do You Feel Safe in your Home?: Yes Lack of Transportation: No Lack of Food: Never True Current Housing: I Have Housing Concerned About Future Housing: No Difficulty Paying Gas/Electric Bills: No Difficulty Paying for M
[2024-02-14] MEDS: VANCOMYCIN HCL 125 MG ORAL CAPSULE PO ×2 (00:32→06:53)
[2024-02-14] MEDS: SODIUM CHLORIDE 0.9% IV 1,000 ML 100 ML IV CONT ×2 (00:36→09:31)
[2024-02-14 05:26] LABS: Anion Gap 8 mmol/L (4-12); Blood Urea Nitrogen 15 mg/dL (9-20); Calcium 8.9 mg/dL (8.4-10.2); Carbon Dioxide 24 mmol/L (22-30); Chloride 107 mmol/L (98-107); Estimated CRCL calculation 58 ml/min; Estimated Glomerular Filt Rate > 60; Glucose 94 mg/dL (65-110); Potassium 2.9 mmol/L (3.4-5.0); Sodium 139 mmol/L (137-145)
[2024-02-14] MEDS: OMEGA 3 POLYUNSAT FATTY ACIDS 1 GM CAP PO (08:58)
[2024-02-14] MEDS: PANTOPRAZOLE 40 MG TABLET PO (08:58)
[2024-02-14] MEDS: TAMSULOSIN HCL 0.4 MG CAPSULE PO (08:58)
[2024-02-14] MEDS: METOPROLOL SUCCINATE EXT REL 100 MG TABCR PO ×2 (08:58→17:26)
[2024-02-14] MEDS: LOSARTAN POTASSIUM 100 MG TABLET PO (08:58)
[2024-02-14] MEDS: ATORVASTATIN 20 MG TABLET PO (08:58)
[2024-02-14] MEDS: amLODIPine BESYLATE 5 MG TABLET PO (08:58)
[2024-02-14] MEDS: MULTIVITAMINS THERAPEUTIC TAB (*BKC) 1 TABLET PO (08:58)
[2024-02-14] MEDS: APIXABAN 2.5 MG TABLET PO ×2 (08:58→21:32)
[2024-02-14] MEDS: SOLIFENACIN 5 MG TABLET PO (08:58)
[2024-02-14] MEDS: FIDAXOMICIN 200 MG TABLET PO ×2 (09:03→21:32)
--- NOTE | 2024-02-14 12:50 | PM.IMPN ---
Progress Note: A&P Assessment and Plan (1) Clostridium difficile colitis: Code(s): A04.72 - Enterocolitis due to Clostridium difficile, not specified as recurrent Status: Acute Assessment and Plan: The patient presents with diarrhea after being on abx recently. WBC 23K. C diff PCR has returned positive. Rocephin and Flagyl stopped Oral Vanco started but will change to Dificid. WBC better. Care coordination to assess if patient can afford this. Monitor stool output. (2) Acute hypokalemia: Code(s): E87.6 - Hypokalemia Status: Acute Assessment and Plan: Patient also has acute hypokalemia. He did receive 40 mEq potassium chloride both IV and p.o.. Repeat potassium level still low so will replace again. Magnesium level normal Stop HCTZ. SLIVF (3) Hyponatremia: Code(s): E87.1 - Hypo-osmolality and hyponatremia Status: Acute Assessment and Plan: Patient does have mild hyponatremia. Sodium 135. [place] related to dehydration from HCTZ and diarrhea. Sodium corrected with IV fluids. SLIVF (4) Obstructive sleep apnea: Code(s): G47.33 - Obstructive sleep apnea (adult) (pediatric) Status: Acute Assessment and Plan: Order auto-PAP. (5) Ankle fracture, left: Code(s): S82.892A - Other fracture of left lower leg, initial encounter for closed fracture Status: Acute Assessment and Plan: Patient states he needs to have his cast changed tomorrow. Will consult Ortho to see in the morning. Plan DVT prophylaxis - Inaquis Code status - DNR Subjective Date/time seen: 02/14/24 12:50 Interval history: 83yo male with BPH, hypertension and obstructive sleep apnea who presented to the ER from acute rehab via EMS due to elevated white count and loose stools. The patient had fallen on 01/25 and was found to have unstable ankle fracture and nonweightbearing. He was hospitalized from 01/26 - 02/02. At the rehab, he is up with the WC and sometimes with a walker walking 10ft. Diarrhea x5 days. Recent abx for PNA. Diarrhea better today. No CP or SOB Exam Narrative: AF 97.8 112/92 76 18 99% ra Gen - NARD Chest - bibasilar dry crackles. nml RR CV - RRR S1/S2. Tele showing PVCs. Abd - Soft, NT/ND, Positive BS Ext - 2+ DP. normal perfusion to the left toes. soft cast Left ankle. Psych - Nml mood and affect Skin - Warm and dry Objective Data Vital Signs Vital Signs: Vital Signs - 24 hr 02/13/24 18:08 02/13/24 19:00 02/13/24 19:32 Temperature 97.9 F Pulse Rate 66 70 70 Respiratory Rate 16 17 16 Blood Pressure 131/66 Pulse Oximetry 99 99 98 Oxygen Delivery Room Air Fraction of Inspired Oxygen 02/13/24 19:45 02/13/24 20:01 02/13/24 20:15 Temperature Pulse Rate 74 67 65 Respiratory Rate 15 29 H 22 H Blood Pressure Pulse Oximetry 100 Oxygen Delivery Fraction of Inspired Oxygen 02/13/24 20:30 02/13/24 20:45 02/13/24 20:51 Temperature Pulse Rate 66 67 63 Respiratory Rate 16 18 17 Blood Pressure 132/79 Pulse Oximetry 99 98 Oxygen Delivery Fraction of Inspired Oxygen 02/13/24 21:26 02/13/24 21:11 02/14/24 00:00 Temperature 97.2 F L 98.1 F Pulse Rate 69 69 77 Respiratory Rate 20 20 16 Blood Pressure 148/58 H 133/55 L Pulse Oximetry 99 99 96 Oxygen Delivery Room Air Fraction of Inspired Oxygen 02/13/24 21:16 02/14/24 00:00 02/14/24 00:00 Temperature Pulse Rate 70 77 80 Respiratory Rate 16 Blood Pressure Pulse Oximetry 96 Oxygen Delivery Room Air Fraction of Inspired Oxygen 02/14/24 02:00 02/14/24 04:00 02/14/24 04:00 Temperature 97.6 F Pulse Rate 86 81 81 Respiratory Rate 18 18 Blood Pressure 128/59 L Pulse Oximetry 94 94 Oxygen Delivery Room Air Fraction of Inspired Oxygen 02/14/24 04:00 02/14/24 05:36 02/14/24 08:00 Temperature 97.7 F Pulse Rate 85 78 84 Respiratory Rate 18 Blo
[2024-02-14] MEDS: POTASSIUM CHLORIDE INJ 40 MEQ in SODIUM CHLORIDE 0.9% IV 500 ML 130 MEQ IVPB (13:38)
[2024-02-14] MEDS: WITCH HAZEL 40 PADS 1 PAD TOPICAL (17:34)
[2024-02-14] MEDS: ACETAMINOPHEN 325 MG TABLET 650 MG PO (21:31)
[2024-02-15] VITALS (11 sets, daily range): BP systolic 110–131; BP diastolic 49–56; PULSE 58–75; RESP 18–20; TEMP 36.6–36.7; O2SAT 98–100
[2024-02-15 05:00] LABS: Basophils Absolute Auto 0.1 K/mm3 (0.0-0.1); Basophils Percent Auto 0.6 % (0.2-1.2); Eosinophils Absolute Auto 0.4 K/mm3 (0-0.3); Eosinophils Percent Auto 4.4 % (0-4.4); Hematocrit 36.5 % (42.0-52.0); Hemoglobin 12.2 g/dL (14.0-18.0); Immature Granulocyte Absolute 0.06 K/mm3 (0.00-0.031); Immature Granulocyte Percent A 0.6 % (0-0.5); Lymphocytes Absolute Auto 1.99 K/mm3 (0.9-3.2); Lymphocytes Percent Auto 20.6 % (18.3-44.2); Mean Corpuscular HGB Conc 33.4 g/dl (32-36); Mean Corpuscular Hemoglobin 31.5 pg (26-34); Mean Corpuscular Volume 94.3 fl (80-100); Mean Platelet Volume 11.1 fl (7.4-10.4); Monocytes Absolute Auto 0.9 K/mm3 (0.1-0.6); Monocytes Percent Auto 9.3 % (2.6-8.5); Neutrophils Absolute Auto 6.2 K/mm3 (1.3-6.7); Neutrophils Percent Auto 64.5 % (45.5-73.1); Platelet Count Result 211 k/mm3 (150-375); Red Blood Count 3.87 M/mm3 (4.6-6.20); Red Cell Distribution Width 13.6 % (11.5-14.5); White Blood Count 9.6 K/mm3 (4.5-10.0)
[2024-02-15 05:11] LABS: Anion Gap 4 mmol/L (4-12); Blood Urea Nitrogen 12 mg/dL (9-20); Calcium 8.7 mg/dL (8.4-10.2); Carbon Dioxide 24 mmol/L (22-30); Chloride 111 mmol/L (98-107); Estimated CRCL calculation 66 ml/min; Estimated Glomerular Filt Rate > 60; Glucose 95 mg/dL (65-110); Potassium 3.1 mmol/L (3.4-5.0); Sodium 139 mmol/L (137-145)
[2024-02-15] MEDS: POTASSIUM CHLORIDE INJ 40 MEQ in SODIUM CHLORIDE 0.9% IV 500 ML 130 MEQ IVPB (09:11)
[2024-02-15] MEDS: MULTIVITAMINS THERAPEUTIC TAB (*BKC) 1 TABLET PO (09:12)
[2024-02-15] MEDS: PANTOPRAZOLE 40 MG TABLET PO (09:12)
[2024-02-15] MEDS: FIDAXOMICIN 200 MG TABLET PO ×2 (09:13→21:04)
[2024-02-15] MEDS: amLODIPine BESYLATE 5 MG TABLET PO (09:13)
[2024-02-15] MEDS: LOSARTAN POTASSIUM 100 MG TABLET PO (09:13)
[2024-02-15] MEDS: METOPROLOL SUCCINATE EXT REL 100 MG TABCR PO ×2 (09:14→17:33)
[2024-02-15] MEDS: APIXABAN 2.5 MG TABLET PO ×2 (09:15→21:04)
[2024-02-15] MEDS: SOLIFENACIN 5 MG TABLET PO (09:16)
[2024-02-15] MEDS: ATORVASTATIN 20 MG TABLET PO (09:16)
[2024-02-15] MEDS: OMEGA 3 POLYUNSAT FATTY ACIDS 1 GM CAP PO (09:17)
[2024-02-15] MEDS: TAMSULOSIN HCL 0.4 MG CAPSULE PO (09:17)
[2024-02-15] MEDS: WITCH HAZEL 40 PADS 1 PAD TOPICAL (09:18)
--- NOTE | 2024-02-15 11:51 | PM.CNOR ---
History of Present Illness HPI Consult date: 02/15/24 Chief complaint: Hypokalemia, Colitis, Abdominal pain Narrative: 84-year-old male who is now 12 days out from ORIF of his left ankle. Patient was transferred to rehab after surgery. He states that he started developing significant diarrhea 5 days ago rehab. He was admitted back to the hospital, he had hypokalemia and was feeling very weak. He was found to have C difficile and stool. This point is on antibiotics and treatment for that. Patient has been nonweightbearing since surgery. He has had leg elevated. I did change his splint today. Incisions all look pristine. He has no swelling in the ankle or foot. No numbness or tingling in the foot. Pain overall is very minimal. He is on Eliquis 2.5 mg b.i.d. for DVT prophylaxis and will continue this. Patient will be nonweightbearing for a total of 6 weeks from the time of surgery. He will be in the hospital until it was felt that he is improved from his C diff and feels strong enough to proceed home. [facility] Past Medical History Medical History Atherosclerosis of aorta Benign prostatic hyperplasia with lower urinary tract symptoms Gastro-esophageal reflux disease without esophagitis Hypercholesterolemia Hypertension Major depressive disorder, recurrent, in partial remission Obstructive sleep apnea Polysomnogram 10/2020 recommended CPAP pressure of 13 PAC (premature atrial contraction) Personal history of colonic polyps Personal history of malignant neoplasm of bladder Restless legs syndrome Surgical History Surgical History (Updated 02/14/24 @ 00:07 by Rachel Vega DO) History of back surgery History of hernia repair Status post open reduction with internal fixation of fracture Proximal left fibular shaft fracture with severe syndesmotic diastasis and posterior villus fracture avulsion fracture of the tubercle with ORIF and syndesmotic stabilization by Dr. Wong Family History Family History Mother Colon cancer Sibling Lung cancer Social History Social History (Updated 02/14/24 @ 09:17 by Rachel Vega DO) Social History: He reports that he is x2. He has been for approximately 14 years from his last . He lives at home with his 90 lb [place] Patricio. 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 He used to drink heavily. He will still occasionally have a beer but is rare. He used to chew tobacco and occasionally smoke a cigar. He quit doing that many years ago as well. He denies history of illicit substance use. Code status: DNR/DNI Healthcare power of family law attorney: Melo Contreras Smoking status: Former smoker Tobacco type: cigars and smokeless tobacco Smokeless tobacco user: chewing tobacco Second hand tobacco smoke exposure: No Alcohol intake: former Substance use: never Substance use type: does not use Do You Feel Safe in your Home?: Yes Lack of Transportation: No Lack of Food: Never True Current Housing: I Have Housing Concerned About Future Housing: No Difficulty Paying Gas/Electric Bills: No Difficulty Paying for Meds: No Currently Unemployed: No Education: High School Diploma/GED Difficulty w/ Childcare or Family Care: No Living arrangements: with family Occupation/Education: retired Gender identity (if verbalized by the patient): Male Sexual Orientation (if Verbalized by the Patient): Straight or Heterosexual Spiritual care concerns: No Meds Home Medications and Allergies Home Medications Medication Instructions Recorded Confirmed Type losartan 100 mg tablet 100 mg PO DAILY #90 tabs 10/08/23 02/13/24 Rx amlodipine 5 mg tablet 5 mg PO DAILY #90 tabs 10/29/23 02/13/24 Rx coenzyme Q10 10 mg capsule (Co 100 mg PO DAILY 12/01/23 02/13/24 History Q-10) hydrochlo
--- NOTE | 2024-02-15 13:03 | PCPTNOTE ---
On 02/15/24, the student, [Sunita Moon], provided care and completed [facility] documentation on this patient. I have reviewed the student's documentation and agree with the findings.
--- NOTE | 2024-02-15 16:44 | PM.IMPN ---
Progress Note: A&P Assessment and Plan (1) Clostridium difficile colitis: Code(s): A04.72 - Enterocolitis due to Clostridium difficile, not specified as recurrent Status: Acute Assessment and Plan: The patient presents with diarrhea after being on abx recently. WBC 23K. C diff PCR has returned positive. Rocephin and Flagyl stopped Oral Vanco started but changed to Dificid. WBC normal now Care coordination to assess if patient can afford this. Monitor stool output. Discharge once diarrhea resolved Hold PPI (2) Acute hypokalemia: Code(s): E87.6 - Hypokalemia Status: Acute Assessment and Plan: Patient also has acute hypokalemia. He did receive 40 mEq potassium chloride both IV and p.o.. Repeat potassium level still low so will replace again. (3) Hyponatremia: Code(s): E87.1 - Hypo-osmolality and hyponatremia Status: Acute Assessment and Plan: Patient does have mild hyponatremia. Sodium 135. [place] related to dehydration from HCTZ and diarrhea. Sodium corrected (4) Obstructive sleep apnea: Code(s): G47.33 - Obstructive sleep apnea (adult) (pediatric) Status: Acute Assessment and Plan: Order auto-PAP. (5) Ankle fracture, left: Code(s): S82.892A - Other fracture of left lower leg, initial encounter for closed fracture Status: Acute Assessment and Plan: Patient states he needs to have his cast changed. Ortho consulted. Xray noted. Plan DVT prophylaxis - Inaquis Code status - DNR Subjective Date/time seen: 02/15/24 16:44 Interval history: 83yo male with BPH, hypertension and obstructive sleep apnea who presented to the ER from acute rehab via EMS due to elevated white count and loose stools. The patient had fallen on 01/25 and was found to have unstable ankle fracture and nonweightbearing. He was hospitalized from 01/26 - 02/02. Stools more semi-solid at times. Eating okay. No n/v. Walking with PT. Exam Narrative: AF 97.9 120/49 70 20 100% ra Gen - NARD Chest - bibasilar dry crackles. nml RR. old left thracotomy scar noted CV - RRR S1/S2. Tele showing no significant dysrhythmias Abd - Soft, ND, Positive BS Ext - soft cast Left ankle. no right pedal edema Psych - Nml mood and affect Skin - Warm and dry Objective Data Vital Signs Vital Signs: Vital Signs - 24 hr 02/14/24 17:26 02/14/24 20:00 02/14/24 20:22 Temperature 97.8 F Pulse Rate 80 64 Respiratory Rate 20 Blood Pressure 138/62 Pulse Oximetry 100 Oxygen Delivery Room Air 02/14/24 20:00 02/15/24 00:00 02/15/24 04:00 Temperature Pulse Rate 65 66 70 Respiratory Rate Blood Pressure Pulse Oximetry Oxygen Delivery 02/15/24 08:00 02/15/24 08:55 02/15/24 09:14 Temperature 98.0 F Pulse Rate 75 62 Respiratory Rate 18 Blood Pressure 131/56 L Pulse Oximetry 99 Oxygen Delivery Room Air 02/15/24 09:21 02/15/24 08:00 02/15/24 12:00 Temperature Pulse Rate 60 61 Respiratory Rate Blood Pressure Pulse Oximetry 98 Oxygen Delivery Room Air 02/15/24 15:48 02/15/24 16:00 Temperature 97.9 F Pulse Rate 58 L 70 Respiratory Rate 20 Blood Pressure 120/49 L Pulse Oximetry 100 Oxygen Delivery Intake/Output Intake/Output: Intake & Output 02/12/24 02/13/24 02/14/24 02/15/24 23:59 23:59 23:59 23:59 Intake Total 1670 3222.0 888.7 Output Total 1999 500 Balance 1670 1222.0 388.7 Meds/Results Medications: Active Medications Generic Name Dose Route Start Last Admin Trade Name Freq PRN Reason Stop Dose Admin Acetaminophen 650 mg 02/13/24 23:54 02/14/24 21:31 Acetaminophen 325 Mg Tablet PO 650 mg Q4H PRN Administration pain 1-3 or fever Hydrocodone Bitart/Acetaminophen 1 tab 02/14/24 13:11 Hydrocodone/Acetaminophen (*Crx) 5-325 Mg Tablet PO Q6H PRN Pain Rated 4-6 Amlodipine Besylate 5 mg 07
[2024-02-16] VITALS (12 sets, daily range): BP systolic 131–149; BP diastolic 55–71; PULSE 47–74; RESP 12–20; TEMP 36.2–36.8; O2SAT 96–100
[2024-02-16 05:12] LABS: Anion Gap 6 mmol/L (4-12); Blood Urea Nitrogen 11 mg/dL (9-20); Calcium 9.1 mg/dL (8.4-10.2); Carbon Dioxide 26 mmol/L (22-30); Chloride 108 mmol/L (98-107); Estimated CRCL calculation 58 ml/min; Estimated Glomerular Filt Rate > 60; Glucose 94 mg/dL (65-110); Magnesium 1.9 mg/dL (1.6-2.3); Potassium 3.7 mmol/L (3.4-5.0); Sodium 140 mmol/L (137-145)
[2024-02-16] MEDS: amLODIPine BESYLATE 5 MG TABLET PO (08:47)
[2024-02-16] MEDS: SOLIFENACIN 5 MG TABLET PO (08:47)
[2024-02-16] MEDS: LOSARTAN POTASSIUM 100 MG TABLET PO (08:47)
[2024-02-16] MEDS: FIDAXOMICIN 200 MG TABLET PO ×2 (08:47→20:48)
[2024-02-16] MEDS: APIXABAN 2.5 MG TABLET PO ×2 (08:47→20:48)
[2024-02-16] MEDS: MULTIVITAMINS THERAPEUTIC TAB (*BKC) 1 TABLET PO (08:47)
[2024-02-16] MEDS: METOPROLOL SUCCINATE EXT REL 100 MG TABCR PO ×2 (08:47→17:55)
[2024-02-16] MEDS: ATORVASTATIN 20 MG TABLET PO (08:48)
[2024-02-16] MEDS: OMEGA 3 POLYUNSAT FATTY ACIDS 1 GM CAP PO (08:48)
--- NOTE | 2024-02-16 14:35 | PM.IMPN ---
Progress Note: A&P Assessment and Plan (1) Clostridium difficile colitis: Code(s): A04.72 - Enterocolitis due to Clostridium difficile, not specified as recurrent Status: Acute Assessment and Plan: The patient presents with diarrhea after being on abx recently. WBC 23K. C diff PCR has returned positive. CT Abd/pelvis showing colitis and indeterminate 1.7cm enhancing mass/polyp Rocephin and Flagyl started on admisison but now stopped Oral Vanco started but changed to Dificid. WBC normal now Care coordination to assess if patient can afford this. Monitor stool output. Discharge once diarrhea resolved Holding PPI. Will need colonoscopy after discharge and once his colitis is better (2) Acute hypokalemia: Code(s): E87.6 - Hypokalemia Status: Acute Assessment and Plan: Patient also has acute hypokalemia. This was replaced Repeat potassium level normal now Follow (3) Hyponatremia: Code(s): E87.1 - Hypo-osmolality and hyponatremia Status: Acute Assessment and Plan: Patient does have mild hyponatremia. Sodium 135. [place] related to dehydration from HCTZ and diarrhea. Sodium corrected (4) Obstructive sleep apnea: Code(s): G47.33 - Obstructive sleep apnea (adult) (pediatric) Status: Acute Assessment and Plan: Auto-PAP ordered (5) Ankle fracture, left: Code(s): S82.892A - Other fracture of left lower leg, initial encounter for closed fracture Status: Acute Assessment and Plan: Patient states he needs to have his cast changed. Ortho consulted. Xray noted. Cast changed out Appreciate ortho input Plan Bronchiectasis - noted as UIP type. THis has been seen prior. Cecal mass - As above. Not seen by CT scan in October 2022. GI consult once he is better and off Eliquis and CDiff cleared up. Prostamegaly - Continue Flomax. DVT prophylaxis - Eliquis Code status - DNR Subjective Date/time seen: 02/16/24 14:35 Interval history: 83yo male with BPH, hypertension and obstructive sleep apnea who presented to the ER from acute rehab via EMS due to elevated white count and loose stools. The patient had fallen on 01/25 and was found to have unstable ankle fracture and nonweightbearing. He was hospitalized from 01/26 - 02/02. He was on abx for possible PNA. Diarrhea is better. No CP or SOB. Had lower abd crampy pain but better after BM. N Exam Narrative: AF 98.0 136/71 67 20 99% ra Gen - NARD Chest - dry bibasilar crackles o/w clear CV - RRR S1/S2. Tele brief run of Atrial tachycardia o/w occasional alarm for bradycardia (HR>50) Abd - Soft, ND, Positive BS, mild lower abd tenderness without guarding. Ext - soft cast Left ankle. no right pedal edema Psych - Nml mood and affect Neuro - good cap refill and normal sensation to the left toes Skin - Warm and dry Objective Data Vital Signs Vital Signs: Vital Signs - 24 hr 02/15/24 15:48 02/15/24 16:00 02/15/24 17:33 Temperature 97.9 F Pulse Rate 58 L 70 72 Respiratory Rate 20 Blood Pressure 120/49 L Pulse Oximetry 100 Oxygen Delivery 02/15/24 20:09 02/15/24 21:00 02/16/24 00:00 Temperature 97.8 F Pulse Rate 70 70 59 L Respiratory Rate 20 Blood Pressure 110/50 L Pulse Oximetry 100 Oxygen Delivery 02/16/24 04:00 02/16/24 05:27 02/16/24 08:00 Temperature 97.2 F L 97.1 F L Pulse Rate 49 L 69 58 L Respiratory Rate 20 12 Blood Pressure 147/69 H 131/55 L Pulse Oximetry 96 98 Oxygen Delivery 02/16/24 08:47 02/16/24 08:00 02/16/24 08:00 Temperature Pulse Rate 74 72 Respiratory Rate Blood Pressure Pulse Oximetry Oxygen Delivery Room Air 02/16/24 11:45 02/16/24 12:00 Temperature 98.0 F Pulse Rate 64 67 Respiratory Rate 20 Blood Pressure 136/71 Pulse Oximetry 99 Oxygen Delivery Intake/Output Intake/Output: Intake & Output 02/13/24 02/14/24 02/15/24 02/16/24 23:
[2024-02-17] VITALS (7 sets, daily range): BP systolic 149–154; BP diastolic 69–70; PULSE 49–60; RESP 18–20; TEMP 35.8–36.4; O2SAT 98
[2024-02-17] MEDS: ATORVASTATIN 20 MG TABLET PO (09:13)
[2024-02-17] MEDS: MULTIVITAMINS THERAPEUTIC TAB (*BKC) 1 TABLET PO (09:13)
[2024-02-17] MEDS: OMEGA 3 POLYUNSAT FATTY ACIDS 1 GM CAP PO (09:13)
[2024-02-17] MEDS: LOSARTAN POTASSIUM 100 MG TABLET PO (09:13)
[2024-02-17] MEDS: METOPROLOL SUCCINATE EXT REL 100 MG TABCR PO (09:14)
[2024-02-17] MEDS: APIXABAN 2.5 MG TABLET PO (09:14)
[2024-02-17] MEDS: SOLIFENACIN 5 MG TABLET PO (09:14)
[2024-02-17] MEDS: TAMSULOSIN HCL 0.4 MG CAPSULE PO (09:14)
[2024-02-17] MEDS: amLODIPine BESYLATE 5 MG TABLET PO (09:15)
[2024-02-17] MEDS: FIDAXOMICIN 200 MG TABLET PO (09:15)
--- NOTE | 2024-02-17 11:39 | PM.DS ---
DS: Admitting Diagnosis Discharge Date 02/16 Admitting Diagnosis weakness DS: Discharge Diagnosis Discharge Diagnosis (1) Clostridium difficile colitis: Code(s): A04.72 - Enterocolitis due to Clostridium difficile, not specified as recurrent Status: Acute Assessment and Plan: The patient presents with diarrhea after being on abx recently. WBC 23K. C diff PCR has returned positive. CT Abd/pelvis showing colitis and indeterminate 1.7cm enhancing mass/polyp Rocephin and Flagyl started on admisison but now stopped Oral Vanco started but changed to Dificid. WBC normal now Care coordination to assess if patient can afford this. Monitor stool output. Discharge once diarrhea resolved Holding PPI. Will need colonoscopy after discharge and once his colitis is better OK to Dc to [facility] (2) Acute hypokalemia: Code(s): E87.6 - Hypokalemia Status: Acute Assessment and Plan: Patient also has acute hypokalemia. This was replaced Repeat potassium level normal now (3) Hyponatremia: Code(s): E87.1 - Hypo-osmolality and hyponatremia Status: Acute Assessment and Plan: Patient does have mild hyponatremia. Sodium 135. [place] related to dehydration from HCTZ and diarrhea. Sodium corrected (4) Obstructive sleep apnea: Code(s): G47.33 - Obstructive sleep apnea (adult) (pediatric) Status: Acute Assessment and Plan: Auto-PAP ordered (5) Ankle fracture, left: Code(s): S82.892A - Other fracture of left lower leg, initial encounter for closed fracture Status: Acute Assessment and Plan: Patient states he needs to have his cast changed. Ortho consulted. Xray noted. Cast changed out Appreciate ortho input Plan Bronchiectasis - noted as UIP type. THis has been seen prior. Cecal mass - As above. Not seen by CT scan in October 2022. GI consult once he is better and off Eliquis and CDiff cleared up. Prostamegaly - Continue Flomax. DS: Summary Hospital Course Hospital Course: 83yo male with BPH, hypertension and obstructive sleep apnea who presented to the ER from acute rehab via EMS due to elevated white count and loose stools. The patient had fallen on 01/25 and was found to have unstable ankle fracture and nonweightbearing. He was hospitalized from 01/26 - 02/02. He was on abx for possible PNA. Diarrhea is better. No CP or SOB. Had lower abd crampy pain. ok to DC to swing Bed. Time Spent with Patient Time attestation: Total time spent providing and/or coordinating discharge services:50 minutes on day of DC Exam Narrative: Gen -chronically ill appearing Chest - clear CV - RRR S1/S2. Tele brief run of Atrial tachycardia o/w occasional alarm for bradycardia (HR>50) Abd - Soft, ND, Positive BS, mild lower abd tenderness Ext - soft cast Left ankle. no right pedal edema Psych - Nml mood and affect Neuro - good cap refill and normal sensation to the left toes Skin - Warm and dry DS: Data Data Completed and Pending Labs on day of discharge: Preliminary micro results at discharge 02/13/24 20:43 Blood Culture - Preliminary Blood 02/13/24 20:52 Blood Culture - Preliminary Blood Discharge Plan Discharge Attending physician on discharge: Jeaneth Lewis Consulting providers: Chico Voss; Bubba Dallas; Justin Byers Discharging Clinician: Jeaneth Lewis Anticipated Discharge Date/Time: 02/17/24 11:37 Patient Disposition: Inpatient Rehab Facility Activity: other - see discharge instructions Diet: as tolerated Discharge Instructions: Patient is strict nonweightbearing on his right lower extremity for the next 4 weeks. He is to keep leg elevated so that the foot is higher than the heart. Patient should remain on Eliquis until he is 6 weeks postop. Splint should stay on and not changed. Follow-up with GI for colonoscopy for possible cecal mass
[2024-02-17 12:46] LABS: Anion Gap 5 mmol/L (4-12); Blood Urea Nitrogen 11 mg/dL (9-20); Calcium 9.6 mg/dL (8.4-10.2); Carbon Dioxide 31 mmol/L (22-30); Chloride 103 mmol/L (98-107); Estimated CRCL calculation 65 ml/min; Estimated Glomerular Filt Rate > 60; Glucose 142 mg/dL (65-110); Sodium 139 mmol/L (137-145)
== END 2024-02-17 14:13 | disposition swing bed (61) | DRG 372 ==
LOC: ANHED 19:27 → ANHIMU 20:21
PROVIDERS: Internal Medicine; Student in an Organized Health Care Education/Training Program; Admitting Provider Internal Medicine; Emergency Provider Emergency Medicine; PCP Family Medicine; Visit Provider Family Medicine
DX: A04.72 Enterocolitis due to Clostridium difficile, not specified as recurrent (principal); E87.1 Hypo-osmolality and hyponatremia; S82.892D Other fracture of left lower leg, subsequent encounter for closed fracture with routine healing; E87.6 Hypokalemia; E78.00 Pure hypercholesterolemia, unspecified; G47.33 Obstructive sleep apnea (adult) (pediatric); I10 Essential (primary) hypertension; K21.9 Gastro-esophageal reflux disease without esophagitis; N40.0 Benign prostatic hyperplasia without lower urinary tract symptoms; W19.XXXD Unspecified fall, subsequent encounter; Z85.51 Personal history of malignant neoplasm of bladder; Z66 Do not resuscitate; Z87.891 Personal history of nicotine dependence; Z79.01 Long term (current) use of anticoagulants; Z20.822 Contact with and (suspected) exposure to COVID-19
CPT/HCPCS: 36415; 71046; 73590; 73610; 74177; 80048; 80053; 81003; 83605; 83735; 85025; 85610; 85730; 87040; 87493; 87637; 96361; 96366; 96367; 97110; 97161; 97165; 97530; 97535; 99285; A9270; G0378; J0696; J1836; J3480; J7030; J7040; Q9967

== ENCOUNTER 2024-02-17 15:04 | Inpatient (IN) | payer MEDICARE, SELFPAY ==
--- NOTE | ~2024-02-17 | XR_ITS ---
EXAMINATION: XR chest 1V portable DATE: 02/23/2024 11:01 INDICATION: Cough. Crackles on exam. TECHNIQUE: A single frontal view of the chest was obtained. COMPARISON: Chest 2 views 02/13/2024, CT abdomen and pelvis 02/13/2024 FINDINGS: The lung volumes are normal. There are interstitial opacities in the mid and lower lung zon es. No pleural effusion or pneumothorax. The heart size is normal. There is a large hiatal hernia. Th ere are surgical clips in the left posterior mediastinum. IMPRESSION: 1. Stable chronic interstitial lung disease. 2. Large hiatal hernia. Reviewed, dictated and finalized at location A.
[2024-02-17 15:18] VITALS: BMI 27.7
--- NOTE | 2024-02-17 15:30 | ADMGEN ---
This patient, Melo Haider, was admitted to 2nd Floor Room 208-1. Patient/family oriented to hospital policies and general routines including ID bracelet, bed and alarms, visiting hours, pain management, procedures, bathroom and other care routines, personal items, smoking policy, room service/diet, and visiting hours. Information on how to activate the Rapid Response Team has been discussed. Patient/Family are encouraged to report perceived risks to care and to ask questions if they do not understand what they are told or what they should do.
--- NOTE | 2024-02-17 16:05 | PM.IMHP ---
H&P: HPI History of Present Illness Date/Time: 02/17/24 16:05 Chief Complaint: weakness Narrative: This is 83-year-old male with a past medical history of BPH, hypertension and obstructive sleep apnea who presented as a swing bed for increased weakness and deconditioning after prolonged hospitalization. Initially the patient presented to [place] ER on 01/27/2024 through 02/03/2024. The patient had fallen on 01/26/2024 in fractured his left ankle. He was evaluated by Dr. Wong 02/01/2024 and underwent an ORIF of posterior malleolus and syndesmotic fixation of the left ankle. He was then discharged to [facility] for rehab. He was getting progressively weaker so he was sent to [place] and found to have a leukocytosis and PCR was positive for C-Diff. He was treated with Dificid and electrolyte corrections. He presented to [facility] for swing bed admission for weakness and deconditioning. Review of Systems Review of Systems: All systems reviewed & are unremarkable except as noted in HPI and below PMFSH Past Medical History Medical History Atherosclerosis of aorta Benign prostatic hyperplasia with lower urinary tract symptoms Gastro-esophageal reflux disease without esophagitis Hypercholesterolemia Hypertension Major depressive disorder, recurrent, in partial remission Obstructive sleep apnea Polysomnogram 10/2020 recommended CPAP pressure of 13 PAC (premature atrial contraction) Personal history of colonic polyps Personal history of malignant neoplasm of bladder Restless legs syndrome Surgical History Surgical History History of back surgery History of hernia repair Status post open reduction with internal fixation of fracture Proximal left fibular shaft fracture with severe syndesmotic diastasis and posterior villus fracture avulsion fracture of the tubercle with ORIF and syndesmotic stabilization by Dr. Wong Family History Family History Mother Colon cancer Sibling Lung cancer Social History Social History (Updated 02/18/24 @ 14:24 by Renee Montelongo APRN) Social History: He reports that he is x2. He has been for approximately 14 years from his last . He lives at home with his 90 lb [place] Patricio. 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 He used to drink heavily. He will still occasionally have a beer but is rare. He chews and has chewed since 1979. He denies history of illicit substance use. Code status: DNR/DNI Healthcare power of health care attorney: Melo Contreras Smoking status: Never smoker Tobacco type: cigars and smokeless tobacco Smokeless tobacco user: chewing tobacco Second hand tobacco smoke exposure: Yes Alcohol intake: never Substance use: never Substance use type: does not use Do You Feel Safe in your Home?: Yes Lack of Transportation: No Lack of Food: Never True Current Housing: I Have Housing Concerned About Future Housing: No Difficulty Paying Gas/Electric Bills: No Difficulty Paying for Meds: No Currently Unemployed: No Education: High School Diploma/GED Difficulty w/ Childcare or Family Care: No Living arrangements: with family Occupation/Education: retired Gender identity (if verbalized by the patient): Male Sexual Orientation (if Verbalized by the Patient): Straight or Heterosexual Spiritual care concerns: No Meds Home Medications and Allergies Home Medications Medication Instructions Recorded Confirmed Type losartan 100 mg tablet 100 mg PO DAILY #90 tabs 10/08/23 02/17/24 Rx amlodipine 5 mg tablet 5 mg PO DAILY #90 tabs 10/29/23 02/17/24 Rx coenzyme Q10 10 mg capsule (Co 100 mg PO DAILY 12/01/23 02/17/24 History Q-10) hydrochlorothiazide 25 mg tablet 25 mg PO DAILY #90 tabs
[2024-02-17 16:13] VITALS: BP 142/66; PULSE 56; RESP 18; TEMP 36.1; O2SAT 99
[2024-02-17 17:07] VITALS: PULSE 56
[2024-02-17] MEDS: METOPROLOL SUCCINATE EXT REL 50 MG TABCR 100 MG PO (17:07)
[2024-02-17] MEDS: TRIAMCINOLONE ACET 0.1% CREAM 15 GM TUBE 1 APPLIC TOPICAL (17:08)
[2024-02-17] MEDS: ACETAMINOPHEN 325 MG TABLET 650 MG PO (17:08)
[2024-02-17] MEDS: HYDROCORTISONE 2.5% CREAM 30 GM TUBE 1 APPLIC TOPICAL (17:08)
[2024-02-17] MEDS: FIDAXOMICIN 200 MG TABLET PO (20:50)
[2024-02-17] MEDS: APIXABAN 2.5 MG TABLET PO (20:50)
--- NOTE | 2024-02-17 21:10 | PC.NURSE ---
Alice Montelongo REFUGE WORKER/Hospitalist, notified of patient's c/o GERD. New order received .
[2024-02-17] MEDS: PANTOPRAZOLE 40 MG TABLET PO (21:16)
[2024-02-18] VITALS: BP 159/62; PULSE 64; RESP 16; TEMP 36.3; O2SAT 95
[2024-02-18 08:00] VITALS: BP 140/63; PULSE 56; RESP 18; TEMP 36.1; O2SAT 97
[2024-02-18] MEDS: PANTOPRAZOLE 40 MG TABLET PO (08:21)
[2024-02-18] MEDS: APIXABAN 2.5 MG TABLET PO ×2 (08:21→21:23)
[2024-02-18] MEDS: oxyBUTYnin CHLORIDE XL 5 MG TAB.ER.24 10 MG PO (08:21)
[2024-02-18 08:23] VITALS: PULSE 56
[2024-02-18] MEDS: LOSARTAN POTASSIUM 50 MG TABLET 100 MG PO (08:23)
[2024-02-18] MEDS: ATORVASTATIN 10 MG TABLET 20 MG PO (08:24)
[2024-02-18] MEDS: SOLIFENACIN 5 MG TABLET PO (08:24)
[2024-02-18] MEDS: hydroCHLOROthiazide 25 MG TABLET PO (08:25)
[2024-02-18] MEDS: MULTIVITAMINS THERAPEUTIC TAB (*BKC) 1 TABLET PO (08:25)
[2024-02-18] MEDS: FIDAXOMICIN 200 MG TABLET PO ×2 (08:25→21:23)
[2024-02-18] MEDS: amLODIPine BESYLATE 5 MG TABLET PO (08:26)
[2024-02-18] MEDS: OMEGA 3 POLYUNSAT FATTY ACIDS 1 GM CAP PO (08:26)
[2024-02-18] MEDS: HYDROCORTISONE 2.5% CREAM 30 GM TUBE 1 APPLIC TOPICAL ×2 (08:27→17:10)
[2024-02-18] MEDS: TRIAMCINOLONE ACET 0.1% CREAM 15 GM TUBE 1 APPLIC TOPICAL ×2 (08:28→17:10)
[2024-02-18] MEDS: CALCIUM CARBONATE (TUMS) 500 MG (200 MG ELEMENTAL) PO (09:52)
[2024-02-18 16:00] VITALS: BP 151/62; PULSE 70; RESP 16; TEMP 36.6; O2SAT 97
[2024-02-18 17:09] VITALS: PULSE 70
[2024-02-18] MEDS: METOPROLOL SUCCINATE EXT REL 50 MG TABCR 100 MG PO (17:09)
[2024-02-18] MEDS: ACETAMINOPHEN 325 MG TABLET 650 MG PO (21:23)
[2024-02-19] VITALS: BP 129/61; PULSE 62; RESP 16; TEMP 36.7; O2SAT 99
[2024-02-19 05:22] LABS: Anion Gap 6 mmol/L (4-12); Blood Urea Nitrogen 10 mg/dL (7-18); Calcium 9.3 mg/dL (8.5-10.1); Carbon Dioxide 29 mmol/L (21-32); Chloride 105 mmol/L (98-108); Estimated CRCL calculation 52 ml/min; Estimated Glomerular Filt Rate > 60; Glucose 98 mg/dL (70-99); Osmolality Calculated 289 mOsm/kg (285-295); Potassium 3.5 mmol/L (3.5-5.1); Sodium 140 mmol/L (136-145)
[2024-02-19 08:00] VITALS: BP 143/72; PULSE 55; RESP 16; TEMP 36.1; O2SAT 98
[2024-02-19] MEDS: ACETAMINOPHEN 325 MG TABLET 650 MG PO ×2 (09:06→20:46)
[2024-02-19] MEDS: CALCIUM CARBONATE (TUMS) 500 MG (200 MG ELEMENTAL) PO (09:06)
[2024-02-19] MEDS: OMEGA 3 POLYUNSAT FATTY ACIDS 1 GM CAP PO (09:07)
[2024-02-19] MEDS: oxyBUTYnin CHLORIDE XL 5 MG TAB.ER.24 10 MG PO (09:07)
[2024-02-19] MEDS: FIDAXOMICIN 200 MG TABLET PO ×2 (09:07→20:46)
[2024-02-19] MEDS: SOLIFENACIN 5 MG TABLET PO (09:07)
[2024-02-19] MEDS: ATORVASTATIN 10 MG TABLET 20 MG PO (09:08)
[2024-02-19] MEDS: MULTIVITAMINS THERAPEUTIC TAB (*BKC) 1 TABLET PO (09:09)
[2024-02-19] MEDS: hydroCHLOROthiazide 25 MG TABLET PO (09:09)
[2024-02-19] MEDS: APIXABAN 2.5 MG TABLET PO ×2 (09:09→20:47)
[2024-02-19] MEDS: amLODIPine BESYLATE 5 MG TABLET PO (09:10)
[2024-02-19] MEDS: TRIAMCINOLONE ACET 0.1% CREAM 15 GM TUBE 1 APPLIC TOPICAL ×2 (09:10→16:57)
[2024-02-19] MEDS: LOSARTAN POTASSIUM 50 MG TABLET 100 MG PO (09:10)
[2024-02-19] MEDS: HYDROCORTISONE 2.5% CREAM 30 GM TUBE 1 APPLIC TOPICAL (09:10)
[2024-02-19 09:12] VITALS: PULSE 55
[2024-02-19] MEDS: METOPROLOL SUCCINATE EXT REL 50 MG TABCR PO ×2 (09:12→20:46)
--- NOTE | 2024-02-19 13:00 | PCRCNOTE ---
Dicussed patient wearing his home CPAP. He states he has not wore in awhile and does not think he needs it anymore.
--- NOTE | 2024-02-19 15:39 | PM.EVENT ---
Event Note Event Note Event Note: I called and spoke with the patient's son and gave updates regarding his plan of care, diet, and addressed further concerns. Melatonin was added prn in case he would like something to help him sleep.
[2024-02-19 16:00] VITALS: BP 136/68; PULSE 64; RESP 16; TEMP 36.3; O2SAT 97
--- NOTE | 2024-02-19 17:59 | PC.NURSE ---
Patient has had 2 bowel movements today and both were formed.
[2024-02-19] MEDS: MELATONIN 5 MG TABLET PO (20:45)
[2024-02-19 20:46] VITALS: PULSE 68
[2024-02-20] VITALS: BP 132/58; PULSE 70; RESP 16; TEMP 36.6; O2SAT 97
[2024-02-20 07:55] VITALS: BP 132/59; PULSE 59; RESP 16; TEMP 36.1; O2SAT 97
[2024-02-20 08:30] VITALS: PULSE 59; RESP 16; O2SAT 97
[2024-02-20] MEDS: POTASSIUM CHLORIDE 20 MEQ ER TABLET 40 MEQ PO (09:10)
[2024-02-20] MEDS: CALCIUM CARBONATE (TUMS) 500 MG (200 MG ELEMENTAL) PO (09:10)
[2024-02-20] MEDS: SOLIFENACIN 5 MG TABLET PO (09:10)
[2024-02-20 09:11] VITALS: PULSE 59
[2024-02-20] MEDS: APIXABAN 2.5 MG TABLET PO ×2 (09:11→20:59)
[2024-02-20] MEDS: amLODIPine BESYLATE 5 MG TABLET PO (09:11)
[2024-02-20] MEDS: MULTIVITAMINS THERAPEUTIC TAB (*BKC) 1 TABLET PO (09:11)
[2024-02-20] MEDS: FIDAXOMICIN 200 MG TABLET PO ×2 (09:11→20:59)
[2024-02-20] MEDS: METOPROLOL SUCCINATE EXT REL 50 MG TABCR PO ×2 (09:11→21:00)
[2024-02-20] MEDS: LOSARTAN POTASSIUM 50 MG TABLET 100 MG PO (09:12)
[2024-02-20] MEDS: oxyBUTYnin CHLORIDE XL 5 MG TAB.ER.24 10 MG PO (09:12)
[2024-02-20] MEDS: ATORVASTATIN 10 MG TABLET 20 MG PO (09:12)
[2024-02-20] MEDS: hydroCHLOROthiazide 25 MG TABLET PO (09:12)
[2024-02-20] MEDS: OMEGA 3 POLYUNSAT FATTY ACIDS 1 GM CAP PO (09:12)
[2024-02-20 16:30] VITALS: BP 142/68; PULSE 69; RESP 16; TEMP 36.1; O2SAT 98
[2024-02-20] MEDS: MELATONIN 5 MG TABLET PO (21:00)
[2024-02-21] VITALS: BP 129/60; PULSE 60; RESP 15; TEMP 36.3; O2SAT 97
[2024-02-21 08:00] VITALS: BP 130/58; PULSE 62; RESP 16; TEMP 36.8; O2SAT 96
[2024-02-21 08:36] VITALS: PULSE 63
[2024-02-21] MEDS: OMEGA 3 POLYUNSAT FATTY ACIDS 1 GM CAP PO (08:36)
[2024-02-21] MEDS: ATORVASTATIN 10 MG TABLET 20 MG PO (08:36)
[2024-02-21] MEDS: LOSARTAN POTASSIUM 50 MG TABLET 100 MG PO (08:36)
[2024-02-21] MEDS: CALCIUM CARBONATE (TUMS) 500 MG (200 MG ELEMENTAL) PO (08:36)
[2024-02-21] MEDS: POTASSIUM CHLORIDE 20 MEQ ER TABLET 40 MEQ PO (08:36)
[2024-02-21] MEDS: METOPROLOL SUCCINATE EXT REL 50 MG TABCR PO ×2 (08:36→20:30)
[2024-02-21] MEDS: oxyBUTYnin CHLORIDE XL 5 MG TAB.ER.24 10 MG PO (08:37)
[2024-02-21] MEDS: ACETAMINOPHEN 325 MG TABLET 650 MG PO (08:37)
[2024-02-21] MEDS: SOLIFENACIN 5 MG TABLET PO (08:37)
[2024-02-21] MEDS: APIXABAN 2.5 MG TABLET PO ×2 (08:38→20:30)
[2024-02-21] MEDS: MULTIVITAMINS THERAPEUTIC TAB (*BKC) 1 TABLET PO (08:38)
[2024-02-21] MEDS: hydroCHLOROthiazide 25 MG TABLET PO (08:38)
[2024-02-21] MEDS: amLODIPine BESYLATE 5 MG TABLET PO (08:38)
[2024-02-21] MEDS: FIDAXOMICIN 200 MG TABLET PO ×2 (08:38→20:30)
[2024-02-21] MEDS: MAG HYDROX/AL HYDROX/SIMETH 30 ML UDC PO ×2 (11:45→20:29)
[2024-02-21 16:35] VITALS: BP 117/59; PULSE 63; RESP 16; TEMP 36.2; O2SAT 98
[2024-02-21] MEDS: ONDANSETRON HCL ODT 4 MG TABLET PO (20:30)
[2024-02-21] MEDS: MELATONIN 5 MG TABLET PO (20:30)
[2024-02-21 23:27] VITALS: BP 136/58; PULSE 79; RESP 17; TEMP 36.2; O2SAT 96
[2024-02-22 08:00] VITALS: BP 142/66; PULSE 93; RESP 20; TEMP 36; O2SAT 97
[2024-02-22] MEDS: CALCIUM CARBONATE (TUMS) 500 MG (200 MG ELEMENTAL) PO ×3 (08:00→20:53)
[2024-02-22] MEDS: POTASSIUM CHLORIDE 20 MEQ ER TABLET 40 MEQ PO (08:00)
[2024-02-22] MEDS: SOLIFENACIN 5 MG TABLET PO (09:03)
[2024-02-22 09:04] VITALS: PULSE 93
[2024-02-22] MEDS: METOPROLOL SUCCINATE EXT REL 50 MG TABCR PO ×2 (09:04→20:47)
[2024-02-22] MEDS: oxyBUTYnin CHLORIDE XL 5 MG TAB.ER.24 10 MG PO (09:04)
[2024-02-22] MEDS: MULTIVITAMINS THERAPEUTIC TAB (*BKC) 1 TABLET PO (09:04)
[2024-02-22] MEDS: LOSARTAN POTASSIUM 50 MG TABLET 100 MG PO (09:04)
[2024-02-22] MEDS: amLODIPine BESYLATE 5 MG TABLET PO (09:06)
[2024-02-22] MEDS: FIDAXOMICIN 200 MG TABLET PO ×2 (09:06→20:47)
[2024-02-22] MEDS: OMEGA 3 POLYUNSAT FATTY ACIDS 1 GM CAP PO (09:06)
[2024-02-22] MEDS: hydroCHLOROthiazide 25 MG TABLET PO (09:06)
[2024-02-22] MEDS: ATORVASTATIN 10 MG TABLET 20 MG PO (09:06)
[2024-02-22] MEDS: APIXABAN 2.5 MG TABLET PO ×2 (09:06→20:47)
[2024-02-22 16:00] VITALS: BP 142/70; PULSE 66; RESP 20; TEMP 36.1; O2SAT 95
[2024-02-22] MEDS: MAG HYDROX/AL HYDROX/SIMETH 30 ML UDC PO ×2 (16:35→23:35)
[2024-02-22 20:47] VITALS: PULSE 65
[2024-02-22] MEDS: MELATONIN 5 MG TABLET PO (20:47)
[2024-02-22] MEDS: ONDANSETRON HCL ODT 4 MG TABLET PO (23:35)
[2024-02-23] VITALS: BP 136/60; PULSE 61; RESP 16; TEMP 36.3; O2SAT 95
[2024-02-23 05:50] LABS: Anion Gap 4 mmol/L (4-12); Blood Urea Nitrogen 13 mg/dL (7-18); Calcium 9.6 mg/dL (8.5-10.1); Carbon Dioxide 31 mmol/L (21-32); Chloride 105 mmol/L (98-108); Estimated CRCL calculation 60 ml/min; Estimated Glomerular Filt Rate > 60; Glucose 99 mg/dL (70-99); Osmolality Calculated 290 mOsm/kg (285-295); Potassium 3.8 mmol/L (3.5-5.1); Sodium 140 mmol/L (136-145)
--- NOTE | 2024-02-23 07:08 | PC.NURSE ---
Patient c/o reflux most of the night. Gave patient tums prn when available, at approx. 2030. Did not noticeably reduce reflux. Offered mylanta when available. Took it in to patient at 2230, but patient was sleeping. Patient was awake by 2330, and gave him mylanta and zofran together. Patient noted that relief from reflux was completed by 0030. Patient was able to sleep most of the night, awakening for a few minutes when trash removed from room. Patient stated that reflux was still gone at 0600, but also stated that he did not eat anything for dinner, so he did not know what would occur after he ate breakfast.
[2024-02-23 08:00] VITALS: BP 125/62; PULSE 67; RESP 16; TEMP 36.1; O2SAT 98
[2024-02-23] MEDS: APIXABAN 2.5 MG TABLET PO (08:18)
[2024-02-23] MEDS: MULTIVITAMINS THERAPEUTIC TAB (*BKC) 1 TABLET PO (08:18)
[2024-02-23] MEDS: LOSARTAN POTASSIUM 50 MG TABLET 100 MG PO (08:18)
[2024-02-23] MEDS: OMEGA 3 POLYUNSAT FATTY ACIDS 1 GM CAP PO (08:18)
[2024-02-23] MEDS: oxyBUTYnin CHLORIDE XL 5 MG TAB.ER.24 10 MG PO (08:18)
[2024-02-23] MEDS: amLODIPine BESYLATE 5 MG TABLET PO (08:18)
[2024-02-23] MEDS: CALCIUM CARBONATE (TUMS) 500 MG (200 MG ELEMENTAL) PO (08:18)
[2024-02-23 08:19] VITALS: PULSE 70
[2024-02-23] MEDS: ATORVASTATIN 10 MG TABLET 20 MG PO (08:19)
[2024-02-23] MEDS: METOPROLOL SUCCINATE EXT REL 50 MG TABCR PO (08:19)
[2024-02-23] MEDS: hydroCHLOROthiazide 25 MG TABLET PO (08:20)
[2024-02-23] MEDS: FIDAXOMICIN 200 MG TABLET PO ×2 (08:20→17:58)
[2024-02-23] MEDS: POTASSIUM CHLORIDE 20 MEQ ER TABLET 40 MEQ PO (08:20)
[2024-02-23] MEDS: SOLIFENACIN 5 MG TABLET PO (08:21)
[2024-02-23] MEDS: PANTOPRAZOLE 40 MG TABLET PO (08:26)
[2024-02-23] MEDS: MAG HYDROX/AL HYDROX/SIMETH 30 ML UDC PO (11:11)
--- NOTE | 2024-02-23 13:52 | PM.DS ---
DS: Admitting Diagnosis Discharge Date 02/22 Admitting Diagnosis weakness, rehab DS: Discharge Diagnosis Discharge Diagnosis (1) Clostridium difficile colitis: Code(s): A04.72 - Enterocolitis due to Clostridium difficile, not specified as recurrent Status: Acute Assessment and Plan: C-Diff PCR positive at OSH with diarrhea and electrolyte derangement -Continue Dificid for a total of 10 days, EOT 02/22 -intake output monitoring -contact precaution isolation -check BMP as needed depending on frequency of stools. -Holding PPI as it increases risk of c-diff recurrence (2) Ankle fracture, left: Code(s): S82.892A - Other fracture of left lower leg, initial encounter for closed fracture Status: Acute Assessment and Plan: Post op ORIF of left ankle by Dr Arceo -Strict non-weightbearing to LLE for a total of 6 weeks post op (03/14/24) -Ankle splint to remain in place at all times -Elevate left lower extremity -pain control with Tylenol and PRN oxy -bowel regimen is held due to concurrent c-diff -DVT prophylaxis Eliquis 2.5 mg PO BID for a total of 6 weeks (03/14/24) (3) Obstructive sleep apnea: Code(s): G47.33 - Obstructive sleep apnea (adult) (pediatric) Status: Acute Assessment and Plan: autotitration of home CPAP order (4) Debilitated: Code(s): R53.81 - Other malaise Status: Acute Assessment and Plan: PT/OT consulted Plan Feeding: regular diet Analgesia: Tylenol vs oxycodone Thromboembolic prophylaxis: Eliquis 2.5 mg BID Ulcer prophylaxis: prn tums and maalox as needed Antibiotics: Dificid Disposition: Patient is here for swing bed admission after having ORIF to his left foot on 01/[address] Arceo. He had then gone to [facility] for therapy and returned to [place] for weakness and leukocytosis. He was found to have C-diff colitis. He was started on Dificid. He is here for rehab and his plan is to discharge home with his son. Advance Care Plan I have confirmed that the patient's Advanced Care Plan is present, code status is documented, or surrogate decision maker is listed in patient medical record.: Yes Medication Reconciliation I have utilized all available resources to obtain, update and review the patients current medications (includes all prescriptions, OTC, herbals, cannabis, and nutritional supplements).: Yes DS: Summary Hospital Course Reason for hospitalization: rehab Hospital Course: This is 83-year-old male with a past medical history of BPH, hypertension and obstructive sleep apnea who presented as a swing bed for increased weakness and deconditioning after prolonged hospitalization. Initially the patient presented to [place] ER on 01/27/2024 through 02/03/2024. The patient had fallen on 01/26/2024 in fractured his left ankle. He was evaluated by Dr. Wong 02/01/2024 and underwent an ORIF of posterior malleolus and syndesmotic fixation of the left ankle. He was then discharged to [facility] for rehab. He was getting progressively weaker so he was sent to [facility] [place] and found to have a leukocytosis and PCR was positive for C-Diff. He was treated with Dificid and electrolyte corrections. He presented [facility] for swing bed admission for weakness and deconditioning. Overall he did well with therapy and is stable to discharge home today. Time Spent with Patient Time attestation: Total time spent providing and/or coordinating discharge services:75 Exam Narrative: General: well appearing, appears stated age. HEENT: normocephalic, atraumatic. Mucous membranes moist. EOMI, PERRLA, bilateral sclera anicteric, no conjunctival injection. Neck supple without JVD, lymphadenopathy, or bruit. Respiratory: clear to auscultation bilaterally. No rales/rhonic/wheezes. Cardiovascular: Regular rate and rhythm, normal S1-S2 upon auscultation. No murmurs, rubs, or clicks. PMI is nondisplaced, capillary refill less
[2024-02-23 16:00] VITALS: BP 121/54; PULSE 74; RESP 16; TEMP 35.9; O2SAT 98
--- NOTE | 2024-02-23 18:40 | PC.NURSE ---
Patient discharged at 1838 per private vehicle per son to home with personal belongings and discharge instructions, patient and family voice understanding.
--- NOTE | 2024-02-25 11:01 | PC.NURSE ---
Discharge call back completed, no questions regarding dc instructions, therapy is to be there today to work with him
== END 2024-02-23 18:30 | disposition home or self-care (01) | DRG 948 ==
PROVIDERS: Admitting Provider Internal Medicine; PCP Family Medicine; Visit Provider Nurse Practitioner Acute Care
DX: R53.1 Weakness (principal); A04.72 Enterocolitis due to Clostridium difficile, not specified as recurrent; S82.892D Other fracture of left lower leg, subsequent encounter for closed fracture with routine healing; I10 Essential (primary) hypertension; I70.0 Atherosclerosis of aorta; K21.9 Gastro-esophageal reflux disease without esophagitis; E78.00 Pure hypercholesterolemia, unspecified; N40.1 Benign prostatic hyperplasia with lower urinary tract symptoms; G47.33 Obstructive sleep apnea (adult) (pediatric); G25.81 Restless legs syndrome; F17.220 Nicotine dependence, chewing tobacco, uncomplicated; F33.41 Major depressive disorder, recurrent, in partial remission; W19.XXXD Unspecified fall, subsequent encounter; Z85.51 Personal history of malignant neoplasm of bladder; Z79.01 Long term (current) use of anticoagulants
CPT/HCPCS: 36415; 71045; 80048; 97110; 97161; 97165; 97530; 97535; A9270

== ENCOUNTER 2024-09-09 01:35 | Day surgery (SDC) | payer MEDICARE, SELFPAY ==
[2024-08-24 13:12] VITALS: BMI 28.3
--- OUTSIDE RECORDS SUMMARY | 2024-09-09 01:56 | XMS_ITS | Continuity of Care Document ---
Author Organization Merged with [facility] Address [address] [place] [address] [address] [place] [address] Phone Care Team Providers Care Sr. Logistics Analyst Name Role Phone Spencer Alicea DO Unavailable Unavailable Advance Directives Directive Yes / No Effective Date File Name No Information Encounters Encounter Description Practice Location Reason(s) For Visit Diagnoses Date Provider Providers Copied on Encounter Function [facility] [id number] [place] [address] [address], [place], [place], [id number], [place] tel:[phone] [facility] No Information Deanne Palmer. [address] [place], [address], [place]. tel: [phone] Family History Family Member Type Diagnosis Age At Onset No Information Payers Payer name Insurance type Covered libertarian ID Authoriza tion(s) No Information Social History Type Description Quantity Date Captured Comments Sex Male Smoking Status No Information Chief Complaint And Reason For Visit No Information Reason For Referral Reason For Referral No Information History Of Present Illness Encounter Date Complaint History Of Prese nt Illness No Information Functional Status Date Functional Assessmen t No Information Instructions Date Instruction Additional Infor mation No Information Assessments Type Assessment Date No Information Patient Care Teams Name Effective Dates (start - stop) Status Members No Information
--- OUTSIDE RECORDS SUMMARY | 2024-09-09 01:56 | XMS_ITS ---
Author Organization Unknown Address [address], [place] [id number] Phone Care Team Providers Care Inspector Tool Name Role Phone YULIANA Mehta Attending Unavailable ZEESHAN STEELE GILBERT Primary Unavailable Immunization Immunization Date Status Additional Notes Code Code System COVID-19, mRNA, LNP-S, PF, 3 0 mcg/0.3 mL dose 06/10/2021 Completed 208 CVX COVID-19, mRNA, LNP-S, PF, 3 0 mcg/0.3 mL dose 10/06/2020 Completed 208 CVX COVID-19, mRNA, LNP-S, PF, 3 0 mcg/0.3 mL dose 09/15/2020 Completed 208 CVX Influenza, adjuvanted, quadrivalent, PF 04/20/2020 Completed 205 CVX Influenza, high-dose, quadrivalent, PF 05/29/2023 Completed 197 CVX zoster recombinant 06/01/2019 Completed 187 CVX zoster recombinant 03/31/2019 Completed 187 CVX Influenza, split virus, quadrivalent, preservative 05/11/2017 Completed 158 C VX Influenza, high-dose, trivalent, PF 05/01/2022 Completed 135 CVX Influenza, high-dose, trivalent, PF 05/03/2021 Completed 135 CVX Influenza, high-dose, trivalent, PF 03/31/2019 Completed 135 CVX Influenza, high-dose, trivalent, PF 05/13/2018 Completed 135 CVX Influenza, high-dose, trivalent, PF 05/09/2016 Completed 135 CVX Influenza, high-dose, trivalent, PF 05/11/2015 Completed 135 CVX Influenza, high-dose, trivalent, PF 2014 Completed 135 CVX Pneumococcal conjugate PCV 13 03/31/2019 Completed 133 CVX Results ANKLE 3V MIN (L) ROUTINE - C ompleted: 01/26/2024 10:46 LOINC: Examination: 2 views left ti dara/fibula. Left ankle 3 views.Exam date/time: 01/26/2024 10:08 AM [id number] For Exam: Ground level fall. Swelling on the medial malleolus. Comparison: NoneTechnique: AP and lateral radiographs of the left tibia/fibula were obtained 3 views left ankle. Findings: There is a comminuted fracture that is present involving the proximal diaphysis of the fibula. There is overriding of the fracture fragments that are present. Possible small avulsion fracture about the superior aspect of the fibula subadjacent to its articulation with the tibia. Minimal knee effusion. Minimal patellar osteophytes.There is widening of the medial gutter of the ankle there is anterior displacement of the tibia relative to the talus. Soft tissue swelling about the medial ankle. There is a fracture of the posterior malleolus. Ankle effusion is present.Plantar enthesopathy is present. Calcifications are present in the medial gutter about the ankle due to avulsion fracture possibly from the distal tibia but also possibly from the talus. Lateral gutter of the ankle does not appear to be widened. IMPRESSION: 1. Fracture subluxation of the tibiotalar articulation with fracture of the posterior malleolus. Widening of the medial gutter of the ankle with associated soft tissue swelling. 2. Calcifications within the medial gutter of the ankle related to avulsion fractures possibly from the talus or distal tibia.3. Fracture of the proximal fibula with angulation and overriding present. Created and Electronically Signed by:Alexis Taylor MD01/26/2024 10:51 CT EXT LOWER - Completed: 13:01 LOINC: Procedure(s): CT EXT LOWERDa te of service: 01/26/2024 12:39 PMProvided clinical information: 83 years, Male, ankle fracture. Procedure and materials: Helical images of the ankle are obtained from superior to the tibiotalar reticulation to inferior to the plantar surface of the foot. A dose lowering technique was used for this procedure, which may include, but is not limited to, dose reduction technique, automated exposure control, iterative reconstruction, ALARA (As Low As Reasonably Achievable), or Image Gently techniques.Comparison studies: None.Observations: There is a comminuted fracture is present involving the posterior malleolus of the ankle. This involves the inferior articular surface. There is subluxation present about the tibiotalar articulation.There is significant widening of the medial gutter of the ankle with calcifications present within the medial gutter. This relates to multiple loose bodies from the fracture. The fracture site may be the posterior malleoli are fractured.The lateral malleolus appears to be intact.Calcification is present anterior to the superior lateral malleolus. This may relate to a loose body from the fractured distal talus.Bases of the metatarsals are intact. The cuboid and cuneiforms are intact as is the tarsal navicular bone. Talus appears intact. The calcaneus is intact. Achilles and plantar enthesopathy. Diffuse soft tissue swelling is present about the ankle, lower leg and dorsum of the foot. Ankle effusion is present.IMPRESSION:Fracture subluxation of the tibiotalar articulation with a fracture through the posterior malleolus. Fracture posterior malleolus is noted be comminuted. Multiple calcifications are present about the ankle joint concerning for loose bodies related to the distal tibial fracture. Prominent soft tissue swelling is present.Significant widening of the medial gutter of the ankle due to soft tissue injury and suspected ligamentous tears. Created and Electronically Signed by:Alexis Taylor MD01/26/2024 13:18 TIB - FIB LEFT - Completed: 01/26/2024 10:46 LOINC: Examination: 2 views left ti dara/fibula. Left ankle 3 views.Exam date/time: 01/26/2024 10:08 AM [id number] For Exam: Ground level fall. Swelling on the medial malleolus. Comparison: NoneTechnique: AP and lateral radiographs of the left tibia/fibula were obtained 3 views left ankle. Findings: There is a comminuted fracture that is present involving the proximal diaphysis of the fibula. There is overriding of the fracture fragments that are present. Possible small avulsion fracture about the superior aspect of the fibula subadjacent to its articulation with the tibia. Minimal knee effusion. Minimal patellar osteophytes.There is widening of the medial gutter of the ankle there is anterior displacement of the tibia relative to the talus. Soft tissue swelling about the medial ankle. There is a fracture of the posterior malleolus. Ankle effusion is present.Plantar enthesopathy is present. Calcifications are present in the medial gutter about the ankle due to avulsion fracture possibly from the distal tibia but also possibly from the talus. Lateral gutter of the ankle does not appear to be widened. IMPRESSION: 1. Fracture subluxation of the tibiotalar articulation with fracture of the posterior malleolus. Widening of the medial gutter of the ankle with associated soft tissue swelling. 2. Calcifications within the medial gutter of the ankle related to avulsion fractures possibly from the talus or distal tibia.3. Fracture of the proximal fibula with angulation and overriding present. Created and Electronically Signed by:Alexis Taylor MD01/26/2024 10:51 Social History Type Status Start Date End Date Code Code Syst em Smoking History Never smoker (Never Smoked) [id number] SNOMED CT Sex Male Hospital Discharge Instructions Should you have any questions prior to discharge, please contact a member of your healthcare team. If you have left the hospital and have any questions, please contact your primary care physician. Reason For Referral No Data Found Allergies and Adverse Reactions Allergy Substance Reaction Severity Start Date Concern Status Co de Code System No Known Drug Allergies Active [id number] SNOMED-CT Plan of Treatment No Data Found Encounters Encounter Diagnosis Start Date Code Code Sys tem Other fracture of left lower leg, initial encounter for closed fracture 01/26/2024 SNOMED-CT Personal Care Team Section Performer Name Performer Role Active Date Inactive Da te Imaging Narrative Notes Progress Notes [facility] 09/06/2024 12:33 Addenda for CITLALI GALLEGOS VisitID: [id number] Date: 01/26/2024 01/26/2024 16:50 hydrocodone 5 mg-acetaminophen 325 mg tablet Take 1-2 tablet every six hours as needed for pain -- Dispense 28 tablet. Refills: 0. Substitution permitted. Pharmacy - [facility] [address] [place] [address]. . hydrocodone 5 mg-acetaminophen 325 mg tablet Take 1-2 tablet every six hours as needed for pain -- Dispense 28 tablet. Refills: 0. Substitution permitted. Pharmacy - [facility] [address] [place] [address]. . (Electronically signed by Vincent Hills MD - 01/26/2024 16:50) [facility] 01/26/2024 15:25 Clinical Report - Physicians/Mid Levels [facility] Emergency Department [address] [place] [address] Patient: CITLALI GALLEGOS Sex: M : 1940 Age: 83y Arrrival: 01/26/2024 09:55 Departure: 01/26/2024 14:00 Disposition: Discharge Time Seen: (1058); initial patient contact. Arrived- By ambulance. Historian- patient. Independent historian- EMS personnel. Disposition decision: 12:24 01/26/2024. HISTORY OF PRESENT ILLNESS Chief Complaint: Injury to left ankle. The injury happened just prior to arrival. (brother's home). Fell. He sustained a twisting injury. Patient is experiencing mild pain. No other injury. Additional history - ( 83 year old male arrives to the Emergency Department via EMS. Patient states he was visiting his brother and [place] dog jumped on him and knocked him down resulting in left ankle injury.). REVIEW OF SYSTEMS The patient complains of pain on weight bearing. He has had swelling. All other systems reviewed and are negative. PAST HISTORY See nurses notes. Problems: Gastroesophageal Reflux Disease. Hyperlipidemia. Hypertension. Additional Surgeries: Back Surgery. Medications: Fish Oil Oral (Capsule 1000 mg) 1 capsule, daily. Multivitamin Men 50+ Oral 1 tablet po, daily. Co Q 10 Oral (Capsule 100 mg) 1 capsule, daily. PriLOSEC Oral 20 mg, daily. oxyBUTYnin Chloride ER Oral (Tablet Extended Release 24 Hour 10 mg) 1 tablet, daily. amLODIPine Besylate Oral (Tablet 5 mg) 1 tablet, daily. hydroCHLOROthiazide Oral (Tablet 25 mg) 1 tablet, daily. Losartan Potassium Oral (Tablet 100 mg) 1 tablet, daily. Metoprolol Tartrate Oral (Tablet 100 mg) 1 tablet, 2x a day. Atorvastatin Calcium Oral (Tablet 20 mg) 1 tablet, daily. Allergies: Clinical Report - Physicians/Mid Levels [facility] Emergency Department [address] [place] [address] Patient: CITLALI GALLEGOS Sex: M : 1940 Age: 83y Arrrival: 01/26/2024 09:55 Departure: 01/26/2024 14:00 Disposition: Discharge No Known Drug Allergy. SOCIAL HISTORY Never smoker. No alcohol use or drug use. No recent travel. FAMILY HISTORY No significant family medical history. ADDITIONAL NOTES The nursing notes have been reviewed. PHYSICAL EXAM Vital Signs: Have been reviewed. Appearance: Alert. Oriented X3. No acute distress. Head: Head atraumatic. (non-tender to palpation). Eyes: Pupils equal, round and reactive to light. Eyes normal inspection. ENT: Nose normal. Pharynx normal. Neck: Normal inspection. Neck supple. C-spine non-tender. CVS: Normal heart rate and rhythm. Heart sounds normal. Pulses normal. Respiratory: No respiratory distress. Painless inspiration. Breath sounds normal. Chest nontender. Abdomen: No visible injury. Soft and nontender. Bowel sounds normal. No organomegaly. No mass. Back: Normal inspection. No tenderness. Skin: Skin intact. Skin warm and dry. Normal skin color. Normal skin turgor. Extremities: Left ankle: moderate tenderness and deformity and mild swelling. Neurovascular intact distally. Extremities otherwise negative. Neuro, Vascular and Tendons: Vascular status intact. Sensation intact. Motor intact. Tendon function intact. Gait: Gait not tested due to pain. Neuro: Oriented X 3. (grossly normal). LABS, X-RAYS, AND EKG Diagnostic Tests: Diagnostic tests have been ordered, with results reviewed and considered in the medical decision making process. Laboratory Tests: Ankle L 3V: (SHINE: 01/26/2024 10:15) ( MsgRcvd 01/26/2024 10:53) Final results Exam ANKLE 3V MIN (L) ROUTINE [address] [place] [address] RADIOLOGY REPORT NAME: NUMBER: SEX: AGE: ADMIT: SERVICE: Type: CITLALI GALLEGOS [id number] M 83 01/26/24 E 3 DATE OF : 1940 M/R#: [id number] HOME PHONE: [phone] RM: 190 CELL PHONE: [phone] Clinical Report - Physicians/Mid Levels [facility] Emergency Department [address] [place] [address] Patient: CITLALI GALLEGOS Sex: M : 1940 Age: 83y Arrrival: 01/26/2024 09:55 Departure: 01/26/2024 14:00 Disposition: Discharge ACCESSION NUMBER: [id number] ANKLE 3V MIN (L) ROUTINE COMPLETE: 01/26/2024 10:46 KLM ATTENDING PHYSICIAN: VINCENT HILLS SECOND PHYSICIAN: GILBERT BYERS DICTATING PHYSICIAN: Alexis Taylor MD PRIMARY CARE PHYSICIAN: CEDRIC BYERS Unsigned transcriptions represent a preliminary report and do not represent a medical or legal document Examination: 2 views left tibia/fibula. Left ankle 3 views. Exam date/time: 01/26/2024 10:08 AM [id number] Reason For Exam: Ground level fall. Swelling on the medial malleolus. Comparison: None Technique: AP and lateral radiographs of the left tibia/fibula were obtained 3 views left ankle. Findings: There is a comminuted fracture that is present involving the proximal diaphysis of the fibula. There is overriding of the fracture fragments that are present. Possible small avulsion fracture about the superior aspect of the fibula subadjacent to its articulation with the tibia. Minimal knee effusion. Minimal patellar osteophytes. There is widening of the medial gutter of the ankle there is anterior displacement of the tibia relative to the talus. Soft tissue swelling about the medial ankle. There is a fracture of the posterior malleolus. Ankle effusion is present. Plantar enthesopathy is present. Calcifications are present in the medial gutter about the ankle due to avulsion fracture possibly from the distal tibia but also possibly from the talus. Lateral gutter of the ankle does not appear to be widened. [address] [address] RADIOLOGY REPORT NAME: NUMBER: SEX: AGE: ADMIT: SERVICE: Type: CITLALI GALLEGOS [id number] M 83 01/26/24 E 3 DATE OF : 1940 M/R#: [id number] HOME PHONE: [phone] RM: 190 CELL PHONE: [phone] ACCESSION NUMBER: [id number] ANKLE 3V MIN (L) ROUTINE COMPLETE: 01/26/2024 10:46 KLM ATTENDING PHYSICIAN: VINCENT HILLS SECOND PHYSICIAN: GILBERT BYERS DICTATING PHYSICIAN: Alexis Taylor MD PRIMARY CARE PHYSICIAN: CEDRIC BYERS Unsigned transcriptions represent a preliminary report and do not represent a medical or legal document IMPRESSION: 1. Fracture subluxation of the tibiotalar articulation with fracture of the posterior malleolus. Widening of the medial gutter of the ankle with associated soft tissue swelling. 2. Calcifications within the medial gutter of the ankle related to avulsion fractures possibly from the Clinical Report - Physicians/Mid Levels [facility] Emergency Department [address] [place] [address] Patient: CITLALI GALLEGOS Sex: M : 1940 Age: 83y Arrrival: 01/26/2024 09:55 Departure: 01/26/2024 14:00 Disposition: Discharge talus or distal tibia. 3. Fracture of the proximal fibula with angulation and overriding present. Created and Electronically Signed by: Alexis Taylor MD 01/26/2024 10:51 Tib/Fib L 2V: (SHINE: 01/26/2024 10:15) ( MsgRcvd 01/26/2024 10:53) Final results Exam TIB - FIB LEFT 1 [facility] [address] [place] [address] RADIOLOGY REPORT NAME: NUMBER: SEX: AGE: ADMIT: SERVICE: Type: CITLALI GALLEGOS [id number] 83 01/26/24 E 3 DATE OF : 1940 M/R#: [id number] HOME PHONE: [phone] RM: 190 CELL PHONE: [phone] ACCESSION NUMBER: [id number] TIB - FIB LEFT COMPLETE: 01/26/2024 10:46 KLM ATTENDING PHYSICIAN: VINCENT HILLS SECOND PHYSICIAN: GILBERT BYERS DICTATING PHYSICIAN: Alexis Taylor MD PRIMARY CARE PHYSICIAN: CEDRIC BYERS Unsigned transcriptions represent a preliminary report and do not represent a medical or legal document Examination: 2 views left tibia/fibula. Left ankle 3 views. Exam date/time: 01/26/2024 10:08 AM [id number] Reason For Exam: Ground level fall. Swelling on the medial malleolus. Comparison: None Technique: AP and lateral radiographs of the left tibia/fibula were obtained 3 views left ankle. Findings: There is a comminuted fracture that is present involving the proximal diaphysis of the fibula. There is overriding of the fracture fragments that are present. Possible small avulsion fracture about the superior aspect of the fibula subadjacent to its articulation with the tibia. Minimal knee effusion. Minimal patellar osteophytes. There is widening of the medial gutter of the ankle there is anterior displacement of the tibia relative to the talus. Soft tissue swelling about the medial ankle. There is a fracture of the posterior malleolus. Ankle effusion is present. Plantar enthesopathy is present. Calcifications are present in the medial gutter about the ankle due to avulsion fracture possibly from the distal tibia but also possibly from the talus. Lateral gutter of the ankle does not appear to be widened. Clinical Report - Physicians/Mid Levels [facility] Emergency Department [address] [place] [address] Patient: CITLALI GALLEGOS Sex: M : 1940 Age: 83y Arrrival: 01/26/2024 09:55 Departure: 01/26/2024 14:00 Disposition: Discharge [address] [place] [address] RADIOLOGY REPORT NAME: NUMBER: SEX: AGE: ADMIT: SERVICE: Type: CITLALI GALLEGOS [id number] [facility] 01/26/24 E 3 DATE OF : 1940 M/R#: [id number] HOME PHONE: [phone] RM: 190 CELL PHONE: [phone] ACCESSION NUMBER: [id number] TIB - FIB LEFT COMPLETE: 01/26/2024 10:46 KLM ATTENDING PHYSICIAN: VINCENT HILLS SECOND PHYSICIAN: GILBERT BYERS DICTATING PHYSICIAN: Alexis Taylor MD PRIMARY CARE PHYSICIAN: CEDRIC BYERS Unsigned transcriptions represent a preliminary report and do not represent a medical or legal document IMPRESSION: 1. Fracture subluxation of the tibiotalar articulation with fracture of the posterior malleolus. Widening of the medial gutter of the ankle with associated soft tissue swelling. 2. Calcifications within the medial gutter of the ankle related to avulsion fractures possibly from the talus or distal tibia. 3. Fracture of the proximal fibula with angulation and overriding present. Created and Electronically Signed by: Alexis Taylor MD 01/26/2024 10:51 . PROGRESS AND PROCEDURES Splint Application: Posterior OCL splint applied to left leg. Reassessed extremity following splint application. Neurovascular intact. Follow-up recommended for tomorrow. Splinting applied by nurse with direct supervision by me. Course of Care: 83 y/o male arrives to the ED via EMS. Patient was visiting his brother and was knocked down by his dog resulting in ankle injury. PE: deformity at ankle with tenderness medially. Tender proximal fibular region. NV intact. XR L Tib-Fib: fx proximal fibula with angulation XR L Ankle: fx/sublux tibiotalar articuluation with fx post malleolus. possible avulsion fx talus/distal tibia ([phone]) Call placed for Dr. Wong (Ortho) per patient request. Dr. Wong in surgery today - office will contact. ([phone]) discussed with Dr. Wong. XR sent via text and reviewed by him. Requests CT ankle. Place CT/XR on disc and will see in office tomorrow at 1 pm. Patient to lay on back and elevate leg. Will Clinical Report - Physicians/Mid Levels [facility] Emergency Department [address] [place] [address] Patient: CITLALI GALLEGOS Sex: M : 1940 Age: 83y Arrrival: 01/26/2024 09:55 Departure: 01/26/2024 14:00 Disposition: Discharge probably repair surgically in a week. *discussed with patient and his brother what Ortho advises and planned management. Patient voices understanding and agreement. Tx: long leg splint [place] 5 mg po Rx and Instructions. Disposition: Discharged in stable condition. CLINICAL IMPRESSION Closed ankle fracture. Fracture of the proximal aspect of the left fibula. INSTRUCTIONS (Splint Lay on back and elevate ankle above height of chest Ice and elevate for swelling Non-weight bearing left leg / Crutches Follow up with Dr. Justin Wong tomorrow at 1 pm (bring along disc with CT/X- rays on it) Take medication as prescribed). Prescription Medications: hydrocodone 5 mg-acetaminophen 325 mg tablet Take 1-2 tablet every six hours as needed for pain -- Dispense 28 tablet. Refills: 0. Substitution permitted. Pharmacy - [id number] - [address] ; [place], [place] [phone]. . Understanding of the discharge instructions verbalized. Expected course, prescriptions and follow-up appointment reviewed with patient and relative and understanding verbalized. Agrees to plan of care. (Electronically signed by Vincent Hills MD 01/26/2024 14:09)
--- OUTSIDE RECORDS SUMMARY | 2024-09-09 01:56 | XMS_ITS | Referral Summary ---
Author Organization [facility] Address [facility] [place] [address] Care Team Providers Care Patents Examiner Name Role Phone Edouard Mendez MD Primary Care Provider [phone] Allergies No known active allergies Medications atorvastatin (LIPITOR) 20 mg tablet TK 1 T PO QD 1 8 Active metoprolol (LOPRESSOR) 100 mg tablet TK 1 T PO BID 1 8 Active hydroCHLOROthiazi de (HYDRODIURIL) 25 mg tablet TK 1 T PO QD 0 8 Active multivitamin capsule Take 1 capsule by mouth daily Active losartan (COZAAR) 100 mg tablet Take 1 tablet (100 mg total) by mouth daily Active cyanocobalamin, vitamin B-12, 3,000 mcg capsule Take 1 capsule by mouth daily Active omeprazole (PriLOSEC) 20 mg capsule Take 1 capsule (20 mg total) by mouth daily Active meclizine (ANTIVERT) 25 mg tablet Take 1 tablet (25 mg total) by mouth 3 (three) times a day as needed for dizziness Active cholecalciferol (VITAMIN D-3) 25 mcg (1,000 unit) tablet Take 1 tablet (1,000 Units total) by mouth daily Active fish dwc-ltmpc-7-vit C-vit E 2,000-650-12 mg/2.5 gram emulsion in packet Take by mouth Active amLODIPine (NORVASC) 5 mg tabletIndications :Essential hypertension Take 1 tablet (5 mg total) by mouth daily 90 tablet 3 1 Active furosemide (LASIX) 20 mg tabletIndications :Bilateral lower extremity edema Take 1 tablet (20 mg total) by mouth daily as needed (swelling) 30 tablet 1 2 Active ubidecarenone (CO Q-10 ORAL) Take by mouth Activ e oxyBUTYnin XL (DITROPAN-XL) 10 mg 24 hr tablet Take 1 tablet (10 mg total) by mouth daily 3 Active Active Problems Problem Noted Date Diagnosed Date Bilateral lower extremity edema 08/07/2021 ALLAN on CPAP 01/31/2021 Excessive daytime sleepiness 10/18/2020 PND (paroxysmal nocturnal dyspnea) 10/18/2020 Decreased exercise tolerance 10/18/2020 Chest pain 05/10/2019 Lipid screening 03/11/2018 Palpitations 03/11/2018 Essential hypertension 03/11/2018 Hypercholesteremia 03/11/2018 PAC (premature atrial contraction) 03/11/2018 Social History Tobacco Use Types Packs/Day Years Used Date Smoking Tobacco: Never Smokeless Tobacco: Current Chew Tobacco Cessation:Ready to Q uit: Not Asked; Counseling Given: Not Answered Alcohol Use Standard Drinks/Week Comments Yes 0 (1 standard drink = 0.6 oz pur e alcohol) Sex and Gender Information Value Date Recorded Sex Assigned at Not on file Legal Sex Male 2:40 AM POT ANNEALER Gender Identity Not on file Sexual Orientation Not on file Last Filed Vital Signs Vital Sign Reading Time Taken Comments Blood Pressure 116/60 09/01/2023 1:09 PM POT ANNEALER Pulse 58 09/01/2023 1:09 PM POT ANNEALER Temperature - - Respiratory Rate 16 03/11/2018 12:44 PM CDT Oxygen Saturation 96% 09/01/2023 1:09 PM POT ANNEALER Inhaled Oxygen Concentration - - Weight 87.1 kg (192 lb) 09/01/2023 1:09 PM POT ANNEALER Height 167.6 cm (5' 6 ) 09/01/2023 1:09 PM POT ANNEALER Body Mass Index 30.99 09/01/2023 1:09 PM POT ANNEALER Plan of Treatment Not on file Insurance MEDICARE MEDICARE COMMERCIAL GENERIC Care Teams Patents Examiner Relationship Specialty Start Date End Date Edouard Mendez MD [address] [place] [id number] PCP - General 08/13/12
--- OUTSIDE RECORDS SUMMARY | 2024-09-09 01:56 | XMS_ITS | Clinical Summary ---
Author Organization [facility] Address [facility] [place] [address] Care Team Providers Care Painter Chassis Name Role Phone Edouard Mendez MD Primary Care Provider [phone] Allergies No known active allergies Medications atorvastatin [...] Units total) by mouth daily Active fish upm-wqahp-2-vit C-vit E 2,000-650-12 mg/2.5 gram emulsion in [...] Hypercholesteremia 03/11/2018 PAC (premature atrial contraction) 03/11/2018 Medical History Medical History Date Comments Hx Other Medical Arrhythmias Hypertension Hypertension Hypercholesterolemia High choles terol Heart murmur Cardiac rhythm disturbance Enlarged prostate Family History Medical History Relation Name Comments Colon cancer Mother Relation Name Status Comments Mother Social History Tobacco Use Types Packs/Day Years Used Date Smoking Tobacco: Never Smokeless Tobacco: Current Chew Tobacco Cessation:Ready to Q uit: Not Asked; Counseling Given: Not Answered Alcohol Use Standard Drinks/Week Comments Yes 0 (1 standard drink = 0.6 oz pur e alcohol) Sex and Gender Information Value Date Recorded Sex Assigned at Not on file Legal 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 Gender Identity Not on file Sexual Orientation Not on file Obstetrics History Last Filed Vital Signs Vital Sign Reading Time Taken Comments Blood Pressure 116/60 09/01/2023 1:09 PM THERMITE WELDER Pulse 58 09/01/2023 1:09 PM THERMITE WELDER Temperature - - Respiratory Rate 16 03/11/2018 12:44 PM CDT Oxygen Saturation 96% 09/01/2023 1:09 PM THERMITE WELDER Inhaled Oxygen Concentration - - Weight 87.1 kg (192 lb) 09/01/2023 1:09 PM THERMITE WELDER Height 167.6 cm (5' 6 ) 09/01/2023 1:09 PM THERMITE WELDER Body Mass Index 30.99 09/01/2023 1:09 PM THERMITE WELDER Plan of Treatment Health Maintenance Due Date Last Done Comments Depression Screening 1941 Fall Risk Assessment 1941 DTaP/Tdap/Td Vaccine (1 - Tdap) 1952 Hepatitis B Screening 1959 Well Visit 65+ 2006 Zoster Vaccine (2 of 2) 05/26/2019 03/31/2019 Pneumococcal vaccine 65+ (2 of 2 - PPSV23 or PCV20) 03/31/2020 03/31/2019 Influenza Vaccine (#1) 2024 9, 05/13/2018, 05/11/2017, Additional history exists Insurance MEDICARE [employer] GENERIC Care Teams Painter Chassis Relationship Specialty Start Date End Date Edouard Mendez MD [address] [place] [id number] PCP - General 08/13/12
[2024-09-09 08:54] VITALS: BP 139/63; PULSE 60; RESP 18; TEMP 36.3; O2SAT 98
--- NOTE | 2024-09-09 09:10 | P.HP_ITS ---
History of Present Illness History of Present Illness Consent: Risks, benefits, and alternatives have been discussed and questions answered. Patient agrees to proceed with procedure. Chief complaint: abn findings on diag imaging, other specified Narrative: Melo Haider is a 84 year old male here for colonoscopy, CT scan months ago showed possible mass in cecum, last colonoscopy more than 20 years ago Review of Systems Review of Systems: All systems reviewed & are unremarkable except as noted in HPI and below PMFSH Past Medical History Medical History (Updated 09/09/24 @ 09:10 by Jose Puri MD) Abnormal CT scan, colon Obstructive sleep apnea Polysomnogram 10/2020 recommended CPAP pressure of 13 Personal history of colonic polyps Personal history of malignant neoplasm of bladder Gastro-esophageal reflux disease without esophagitis Benign prostatic hyperplasia with lower urinary tract symptoms Atherosclerosis of aorta Major depressive disorder, recurrent, in partial remission Restless legs syndrome PAC (premature atrial contraction) Hypercholesterolemia Hypertension Surgical History Surgical History Status post open reduction with internal fixation of fracture Proximal left fibular shaft fracture with severe syndesmotic diastasis and posterior villus fracture avulsion fracture of the tubercle with ORIF and syndesmotic stabilization by Dr. Wong History of back surgery History of hernia repair Family History Family History Mother Colon cancer Sibling Lung cancer Social History Social History Social History: He reports that he is x2. He has been for approximately 14 years from his last . He lives at home with his 90 lb [place] Patricio. 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 He used to drink heavily. He will still occasionally have a beer but is rare. He chews and has chewed since 1979. He denies history of illicit substance use. Code status: DNR/DNI Healthcare power of professor of mechanical engineering: Melo Contreras Smoking status: Current some day smoker Tobacco type: smokeless tobacco Smokeless tobacco user: chewing tobacco Second hand tobacco smoke exposure: Yes Alcohol intake: never Alcohol use details: few times a year Substance use: never Substance use type: does not use Do You Feel Safe in your Home?: Yes Lack of Transportation: No Lack of Food: Never True Current Housing: I Have Housing Concerned About Future Housing: Decline to Answer Difficulty Paying Gas/Electric Bills: Decline to Answer Difficulty Paying for Meds: Decline to Answer Currently Unemployed: Decline to Answer Education: High School Diploma/GED Difficulty w/ Childcare or Family Care: Decline to Answer Living arrangements: alone Occupation/Education: retired Additional occupation/education comments: [employer] Gender identity (if verbalized by the patient): Male Sexual Orientation (if Verbalized by the Patient): Straight or Heterosexual Spiritual care concerns: No Meds Home Medications and Allergies Home Medications ?Medication ?Instructions ?Recorded ?Confirmed ?Type multivitamin 1 tablet PO DAILY 01/27/24 09/09/24 History acetaminophen 325 mg tablet 650 mg (2 x 325 mg) PO Q4H PRN 02/02/24 08/24/24 Rx pain #120 tabs hydrocortisone 2.5 % topical cream 1 applic topical BID 02/13/24 09/09/24 History omega-3 fatty acids-vitamin E 1 cap PO DAILY 02/13/24 09/09/24 History 1,000 mg capsule polyethylene glycol 3350 17 gram 17 g PO QAM PRN Constipation 02/13/24 09/09/24 History oral powder packet (Miralax) witch nick 50 % topical pads 1 pad topical 6XD PRN Hemorrhoids 02/13/24 08/24/24 History (Tucktemi (witch nick)) triamcinolone acetonide 0.1 % 1 applic topical BID #80 grams 05/02/24 08/24/24 Rx topical cream atorvastatin 20 mg tablet 20 mg PO DAILY #90 tabs 06/08/24 09/09/24 Rx finasteride 5 mg tablet 5 mg PO DAILY 06/08/24 09/09/24 History losartan 100 mg tablet 100 mg PO DAILY #90 tabs 06/08/24 09/09/24 Rx metoprolol succinate 50 mg 50 mg PO Q12HR #180 tabs 06/08/24 09/09/24 Rx tablet,extended release 24 hr oxybutynin chloride 10 mg 10 mg PO DAILY #90 tabs 06/08/24 09/09/24 Rx tablet,extended release 24 hr pantoprazole 40 mg tablet,delayed 40 mg PO QAM #90 tabs 06/08/24 09/09/24 Rx release levofloxacin 500 mg tablet 500 mg PO DAILY #10 tabs 06/16/24 08/24/24 Rx hydrochlorothiazide 25 mg tablet 25 mg PO DAILY #90 tabs 08/08/24 09/09/24 Rx amlodipine 5 mg tablet 5 mg PO DAILY #90 tabs 08/12/24 09/09/24 Rx cholecalciferol (vitamin D3) 25 25 mcg PO DAILY 08/24/24 09/09/24 History mcg (1,000 unit) capsule (Vitamin D3) coenzyme Q10 100 mg capsule (Co 100 mg PO DAILY 08/24/24 09/09/24 History Q-10) Allergies Allergy/AdvReac Type Severity Reaction Status Date / Time aspirin AdvReac Intermediate Headache Verified 08/24/24 13:03 Vital Signs Vital Signs - 24 hr 09/09/24 08:54 Temperature 97.3 F L Pulse Rate 60 Respiratory Rate 18 Blood Pressure 139/63 Pulse Oximetry 98 Exam Const: General: comfortable and no acute distress HENMT: Face/Nose/Sinus: Normal nares present Eyes: General: appearance normal, both eyes and all related structures Neck: Neck: no JVD Resp: Auscultation: clear to auscultation bilaterally Cardio: Rate: regular rate Rhythm: regular rhythm GI: Inspection: non-distended GI Palp: Yes Soft to palpation Skin: General skin exam: normal color Neuro: Speech: normal speech Extrem: General: normal to inspection Psych: Mental Status: mental status grossly normal Assessment and Plan Assessment and plan (1) Abnormal CT scan, colon: Code(s): R93.3 - Abnormal findings on diagnostic imaging of other parts of digestive tract Status: Acute Assessment and Plan: colonoscopy
[2024-09-09] MEDS: LACTATED RINGERS 1,000 ML 150 ML IV CONT (09:14)
[2024-09-09 09:51] VITALS: BP 87/53; PULSE 61; RESP 22; O2SAT 98
[2024-09-09 10:01] VITALS: BP 116/58; PULSE 54; RESP 20; O2SAT 98
[2024-09-09 10:11] VITALS: BP 141/91; PULSE 63; RESP 18; O2SAT 98
== END 2024-09-09 10:24 | disposition home or self-care (01) ==
PROVIDERS: PCP Family Medicine; Visit Provider Internal Medicine Gastroenterology
PROC: 0DJD8ZZ Inspection of Lower Intestinal Tract, Via Natural or Artificial Opening Endoscopic (ICD-10-PCS; CPT 45378; principal; 2024-09-09 11:00)
DX: D12.0 Benign neoplasm of cecum (principal); D12.4 Benign neoplasm of descending colon; K57.30 Diverticulosis of large intestine without perforation or abscess without bleeding; K64.8 Other hemorrhoids; F17.220 Nicotine dependence, chewing tobacco, uncomplicated
CPT/HCPCS: 45385; 88305; J2704; J7120